=== PATIENT | male | born 1945 | race Caucasian/White ===

== ENCOUNTER 2017-09-23 07:40 | Emergency (ER) | payer OTHER ==
[~2017-09-23] VITALS: Ht 172.7 cm; Wt 89.4 kg
[~2017-09-23 07:40] MED LIST: ACETAMINOPHEN-1 EAC1 PO; AMOXICILLIN 50500 MG PO; ASPIR 8181 MG PO; ASPIRIN81 M2 PO; AZULFIDINE500 MG PO; BENTYL20 MG PO; CARVEDILOL3.125 MG PO; CEFDINIR300 MG PO; CIPRODEX OTIC7.5 ML OTIC; COREG3.125 MG PO; DULCOLAX5 MG PO; FERROUS SULFATE; FLEXERIL PO; FOLIC ACID1 MG PO; HUMIRA40 MG/0.1 INJECTION; HYDROCODONE-AP1 EAC6 PO; IBUPROFEN 800800 M1 PO; LISINOPRIL20 MG PO; LOPERAMIDE 2 MG2 M1 PO; MAG-AL PLUS XS30 ML PO; MESALAMINE4 GM/60 M2 RECTAL; MILK OF MA2400 MG/10 PO; MUPIROCIN22 GM TOP; NEO-POLYMYXIN-H10 ML OT; NYSTATIN-TRIAMC15 GM TOP; ONDANSETRON HCL4 M2 PO; PHENERGAN 25 MG25 MG PO; PREDNISONE 10 M10 MG PO; PREDNISONE50 MG PO; SULFASALAZINE500 M1 PO; SULFASALAZINE500 M4 PO; TRIAMCINOLONE A80 G2 TOP; TYLENOL325 MG PO
[2017-09-23 07:47] VITALS: BP 156/59
[2017-09-23] MEDS ORDERED: DIPHENHIST50 MG PO (07:50)
[2017-09-23] MEDS ORDERED: PREDNISONE 10 M10 MG PO (07:50)
[2017-09-23] MEDS ORDERED: AMOXICILLIN 50500 MG PO (07:54)
== END 2017-09-23 08:06 | disposition home or self-care (01) ==
LOC: M.ERS 07:40
DX: J02.9 Acute pharyngitis, unspecified (principal); I10 Essential (primary) hypertension; I67.1 Cerebral aneurysm, nonruptured; K64.9 Unspecified hemorrhoids

== ENCOUNTER 2017-11-03 10:22 | Observation (INO) | payer OTHER ==
[~2017-11-03] VITALS: Ht 175.3 cm; Wt 85.7 kg
[~2017-11-03 10:22] MED LIST changes: +DIPHENHIST50 MG PO
[2017-11-03 10:31] VITALS: BP 154/65
[2017-11-03] MEDS ORDERED: AZULFIDINE500 MG PO (10:35)
[2017-11-03 10:57] LABS: ABSOLUTE BASOPHILS 0.1 thou/uL (0.0-0.2); ABSOLUTE EOSINOPHILS 0.1 thou/uL (0.0-0.7); ABSOLUTE LYMPHOCYTES 0.9 thou/uL (0.8-5.3); ABSOLUTE MONOCYTES 0.7 thou/uL (0.0-1.2); BASOPHILS 1.2 %; EOSINOPHILS 1.5 %; HEMATOCRIT 29.4 % (42.0-52.0); HEMOGLOBIN 9.4 gm/dL (14.0-18.0); LYMPHOCYTES 19.4 %; MCH 22.2 pg (26.0-34.0); MCHC 32.1 g/dL (28.0-37.0); MCV 69.2 fL (80.0-100.0); MONOCYTES 15.2 %; MPV 7.7 fl. (7.2-11.1); NUCLEATED RBCS 0 /100WBC; PLATELET COUNT* 310 thou/uL (150-400); POLYS 62.7 %; RBC 4.24 mil/uL (4.50-6.00); WBC 4.8 thou/uL (4.0-11.0)
[2017-11-03 11:07] LABS: CALCIUM 8.5 mg/dL (8.5-10.1); CREATININE 1.2 mg/dL (0.6-1.3); POTASSIUM 3.4 mmol/L (3.5-5.1)
[2017-11-03 11:17] LABS: ALBUMIN 3.3 g/dL (3.4-5.0); DIRECT BILIRUBIN 0.1 mg/dL (<0.1-0.3); TOTAL BILIRUBIN 0.4 mg/dL (<0.1-1.0); TOTAL PROTEIN 7.3 g/dL (6.4-8.2)
[2017-11-03 11:20] LABS: MICROCYTES 2+
[2017-11-03 11:24] LABS: URINE BILIRUBIN NEGATIVE (Negative); URINE BLOOD NEGATIVE (Negative); URINE CLARITY CLEAR; URINE COLOR YELLOW; URINE GLUCOSE-RANDOM NEGATIVE (Negative); URINE KETONES NEGATIVE (Negative); URINE LEUKOCYTES NEGATIVE (Negative); URINE NITRITE NEGATIVE (Negative); URINE PROTEIN NEGATIVE (Negative); URINE SPECIFIC GRAVITY 1.015 (1.005-1.030); URINE UROBILINOGEN 0.2 E.U./dl (0.2-1.0)
[2017-11-03 13:55] VITALS: BP 148/65
[2017-11-03 14:09] VITALS: BP 130/85
[2017-11-03 16:00] VITALS: BP 139/64
[2017-11-03 23:53] VITALS: BP 131/55
[2017-11-04 05:18] LABS: HEMATOCRIT 28.8 % (42.0-52.0); HEMOGLOBIN 9.4 gm/dL (14.0-18.0); MCH 22.7 pg (26.0-34.0); MCHC 32.7 g/dL (28.0-37.0); MCV 69.4 fL (80.0-100.0); MPV 8.1 fl. (7.2-11.1); RBC 4.15 mil/uL (4.50-6.00); RDW-CV 17.5 % (10.5-14.5); WBC 4.8 thou/uL (4.0-11.0)
[2017-11-04 05:35] LABS: CALCIUM 8.3 mg/dL (8.5-10.1); TOTAL BILIRUBIN 0.4 mg/dL (<0.1-1.0); TOTAL PROTEIN 6.4 g/dL (6.4-8.2)
--- NOTE | 2017-11-04 15:20 | EKG ---
[place] [address] ELECTROCARDIOGRAM REPORT Name: CARLOTTA CAMERON Room: [address] ADM IN .R.#: [id number] Admission: 11/03/17 Attend Phys: Amna Miller MD Discharge: Date of : 49 Report #: [id number] THIS REPORT FOR: //name// [facility] Test Date: 2017-11-04 Test Time: 11:51:23 Pat Name: CARLOTTA CAMERON Department: Room: [address] Gender: M Visual Effects Artist: [facility] : 1945 Requested By: Alison Olmstead Order Number: [id number] Coni MD: Neftaly Esparza Measurements Intervals [place] Rate: 64 P: 56 ME: 171 QRS: 65 QRSD: 154 T: 13 QT: 467 QTc: 482 Interpretive Statements Sinus rhythm Right bundle branch block Compared to ECG 04/01/2017 17:41:56 Right bundle-branch block now present Electronically Signed On 11-04-2017 15:20:08 CDT by Neftaly Esparza [email or web address] <ELECTRONICALLY SIGNED> By: Neftaly Esparza MD, [facility] 11/04/17 1520 1151 1151 Neftaly Esparza MD, [facility] /EPI
[2017-11-04 16:49] VITALS: BP 133/58
[2017-11-04 20:30] VITALS: BP 143/77
[2017-11-05] VITALS (7 sets, daily range): BP systolic 125–144; BP diastolic 58–78
[2017-11-05 04:45] LABS: HEMATOCRIT 29.4 % (42.0-52.0); HEMOGLOBIN 9.3 gm/dL (14.0-18.0); MCH 22.1 pg (26.0-34.0); MCHC 31.7 g/dL (28.0-37.0); MCV 69.7 fL (80.0-100.0); MPV 8.5 fl. (7.2-11.1); RBC 4.21 mil/uL (4.50-6.00); RDW-CV 17.3 % (10.5-14.5); WBC 4.8 thou/uL (4.0-11.0)
[2017-11-05 05:20] LABS: ALBUMIN 3.1 g/dL (3.4-5.0); CALCIUM 8.6 mg/dL (8.5-10.1); CREATININE 1.1 mg/dL (0.6-1.3); POTASSIUM 4.5 mmol/L (3.5-5.1); TOTAL BILIRUBIN 0.3 mg/dL (<0.1-1.0); TOTAL PROTEIN 6.7 g/dL (6.4-8.2)
[2017-11-05] MEDS ORDERED: FERREX 150 PLU1 EAC1 PO (14:23)
[2017-11-05] MEDS ORDERED: CIPRO500 MG PO (14:23)
[2017-11-05] MEDS ORDERED: PREDNISONE 10 M10 MG PO (14:23)
[2017-11-05] MEDS ORDERED: FLAGYL500 MG PO (14:23)
[2017-11-06 08:30] VITALS: BP 124/46
[2017-11-06] MEDS ORDERED: SULFASALAZINE500 M4 PO (10:11)
[2017-11-06] MEDS ORDERED: ACIDOPHILUS1 EAC4 PO (10:11)
[2017-11-06] MEDS ORDERED: FERREX 150 PLU1 EAC1 PO (10:11)
[2017-11-06] MEDS ORDERED: PREDNISONE 10 M10 M1 PO (10:13)
[2017-11-06 11:00] VITALS: BP 133/58
[2017-11-06 11:33] VITALS: BP 133/58
[2017-11-06 12:14] VITALS: BP 133/58
--- NOTE | 2017-11-12 11:08 | CON ---
[address] [address] CONSULTATION Name: CARLOTTA CAMERON Room: [address] Rea Hicks#: [id number] Admission: 11/03/17 Attend Phys: Amna Miller MD Discharge: 11/06/17 Date of : 49 Report #: [id number] THIS REPORT FOR: //name// CC: Jass Miller MD DATE OF SERVICE: 11/04/2017 I have seen and examined the patient and agreed with plans been outlined by our nurse practitioner, Alison Olmstead. Due to the patient's complaints of persistent diarrhea with associated lower abdominal cramping and pain, we will proceed with full colonoscopy and terminal ileoscopy tomorrow. In addition, we will address if and when he can start treatment for his chronic hepatitis C infection. I have discussed this plan with the patient as well and he is agreeable to the same. <ELECTRONICALLY SIGNED> By: Jass Ly DO 11/12/17 1108 1653 [id number] Ly DO /nt
--- NOTE | 2017-11-12 11:08 | CON ---
[address] [address] CONSULTATION Name: CARLOTTA CAMERON Room: [address] Rea Hicks#: [id number] Admission: 11/03/17 Attend Phys: Amna Miller MD Discharge: 11/06/17 Date of : 49 Report #: [id number] THIS REPORT FOR: //name// CC: Jass Miller DICTATED BY: Alison Olmstead [facility] DATE OF SERVICE: 11/04/2017 Please note at the time of this dictation, the patient was seen and physically examined by myself. REASON FOR CONSULTATION: Increasing stooling. HISTORY OF PRESENT ILLNESS: This is a 72-year-old male who is well known to our practice who was last seen by myself in July 2017, to follow up regarding his UC and hepatitis C. At that time, the patient had been on Humira after starting his induction dose in October 2016, and he was doing his Humira every 2 weeks at that time. He was also on steroids 20 mg at that time and we started to taper because he was having 1 stool daily to every other day that was soft and formed with no evidence of any bright red blood or any melena. The patient underwent a colonoscopy back in October 2016 that showed moderate proctosigmoiditis, UC and a cecal polyp. Prior to that colon, he was also taking sulfasalazine 500 mg 4 tablets twice a day. The patient states that once he got off the steroids, then he started slowly noticing that he was having more increased gas or tenesmus with the urgency to go to the bathroom and when he would go to the bathroom, it would only be gas and no stool. He states that it has been going on probably since the October 04 or november, but he is not the best historian when it comes to the timeframe. However, he states in the last 2-3 weeks, he has had more increased episodes of this with one episode of being incontinent that he did not know if it was gas or stool and this one was stool and he did not make it to the bathroom. He states most of the time that was the only time that his stool just recently was very loose and watery, otherwise his bowel movements that he had this morning 30 minutes after eating was formed stool. He denies any abdominal cramping, any nausea, vomiting, fever or chills at this time. The patient is wondering if his Humira is working or not. His last Humira injection was on October 25, his next one is due on November 08. The patient also is undergoing hepatitis C treatment by myself. He was just approved for [employer] and he just received his medication at his home, but he is yet to start taking it yet. ALLERGIES: [place] [address] CONSULTATION Name: CARLOTTA CAMERON Room: [address] Rea Hicks#: [id number] Admission: 11/03/17 Attend Phys: Amna Miller MD Discharge: 11/06/17 Date of : 49 Report #: [id number] MEDICATIONS: From home include Humira, Benadryl, and sulfasalazine. PAST MEDICAL HISTORY: UC, proctosig, hypertension, hepatitis C, a history of a brain aneurysm. PAST SURGICAL HISTORY: Negative. FAMILY HISTORY: Noncontributory. SOCIAL HISTORY: He has been a smoker for 15+ years. No alcohol for many years. Past history of alcohol and illegal drug use. REVIEW OF SYSTEMS: Twelve-point review of systems is essentially negative except what is mentioned in the HPI. PHYSICAL EXAMINATION: VITAL SIGNS: Temperature 36.3, pulse 65, respirations 15, and blood pressure 131/55. HEART: Regular rate and rhythm. LUNGS: Clear. ABDOMEN: Soft, positive bowel sounds in all 4 quadrants with no masses or tenderness noted. LABS: Hemoglobin 9.4, hematocrit 28.8, white count is 4.8, platelets 274. Sodium 137, potassium 4, chloride 105, CO2 of 20, BUN is 10, creatinine 1, GFR 74, and glucose is 92. LFT is completely normal. Iron is 16, TIBC 384. Percentage sat is 4, ferritin is 10. CT of the abdomen and pelvis showed a sliding hiatal hernia and he has some thickening of the proximal sigmoid colon. IMPRESSION: 1. Tenesmus. 2. Gas. 3. Ulcerative colitis history, proctosig, last colon in October 2016. 4. Anemia. 5. Hepatitis C virus positive, we will be starting Harvoni treatment once he gets out of the hospital. PLAN: 1. Flex sig tomorrow with Dr. Ly. 2. We will start his prep. 3. Labs [place] [address] CONSULTATION Name: CARLOTTA CAMERON Room: [address] Kurt#: [id number] Admission: 11/03/17 Attend Phys: Amna Miller MD Discharge: 11/06/17 Date of : 49 Report #: [id number] Thank you for allowing us to participate in this patient's care. Please do not hesitate to call with any questions in regard to this consult. <ELECTRONICALLY SIGNED> By: Jass Ly DO 11/12/17 1108 1058 1937Jass Ly DO /nt
== END 2017-11-06 12:12 | disposition home or self-care (01) ==
LOC: M.ERS 10:22 → M.ORTHSURG 12:37 → M.TBA-ER 12:37 → M.ORTHSURG 12:51
PROVIDERS: Physician Assistant Surgical; ADMIT Internal Medicine
DX: K51.90 Ulcerative colitis, unspecified, without complications (principal); B19.20 Unspecified viral hepatitis C without hepatic coma; D64.9 Anemia, unspecified; I10 Essential (primary) hypertension; E87.6 Hypokalemia; R19.8 Other specified symptoms and signs involving the digestive system and abdomen; R14.3 Flatulence; R19.7 Diarrhea, unspecified; K26.9 Duodenal ulcer, unspecified as acute or chronic, without hemorrhage or perforation; K29.60 Other gastritis without bleeding; Z87.891 Personal history of nicotine dependence

== ENCOUNTER 2017-11-12 11:18 | Inpatient (IN) | payer OTHER ==
[~2017-11-12] VITALS: Ht 172.7 cm; Wt 85.8 kg
[~2017-11-12 11:18] MED LIST changes: +ACIDOPHILUS1 EAC4 PO; +CIPRO500 MG PO; +FERREX 150 PLU1 EAC1 PO; +FLAGYL500 MG PO; +PREDNISONE 10 M10 M1 PO
[2017-11-12 11:26] VITALS: BP 125/77
[2017-11-12] MEDS ORDERED: HARVONI 90-4001 EACH PO (11:28)
[2017-11-12 12:17] LABS: HEMATOCRIT 31.4 % (42.0-52.0); MCH 22.1 pg (26.0-34.0); MCHC 31.7 g/dL (28.0-37.0); MCV 69.8 fL (80.0-100.0); MPV 8.6 fl. (7.2-11.1); NUCLEATED RBCS 0 /100WBC; PLATELET COUNT* 305 thou/uL (150-400); RBC 4.51 mil/uL (4.50-6.00); WBC 10.1 thou/uL (4.0-11.0)
[2017-11-12 12:24] LABS: CALCIUM 8.7 mg/dL (8.5-10.1); CREATININE 1.2 mg/dL (0.6-1.3); PROTIME 9.8 Seconds (9.20-11.50)
[2017-11-12 12:31] LABS: ALBUMIN 3.3 g/dL (3.4-5.0); TOTAL BILIRUBIN 0.2 mg/dL (<0.1-1.0); TOTAL PROTEIN 7.4 g/dL (6.4-8.2); TROPONIN-I LEVEL 0.14 ng/mL (<0.06)
[2017-11-12 12:32] LABS: POTASSIUM 3.8 mmol/L (3.5-5.1)
[2017-11-12 12:45] LABS: ABSOLUTE LYMPHOCYTES 1.8 thou/uL (0.8-5.3); ABSOLUTE NEUTROPHILS 7.3 thou/uL (1.6-8.1); PLATELET ESTIMATE ADEQUATE
[2017-11-12 12:46] LABS: ANISOCYTOSIS 1+; HYPOCHROMASIA 2+; MICROCYTES 3+
[2017-11-12 12:47] LABS: MACROCYTES 1+
[2017-11-12 13:30] VITALS: BP 164/68
--- NOTE | 2017-11-12 13:30 | NUR ---
MRI [facility]ST[facility] FILLED OUT AND SENT WITH CHART TO UNIT. PATIENT TAKEN TO CT BY DAPHNE AND THEN TAKEN TO RM 208 BY SAMUEL JO. REPORT GIVEN TO SHARDA
[2017-11-12 14:08] VITALS: BP 139/66
--- NOTE | 2017-11-12 15:56 | EKG ---
[place] [address] ELECTROCARDIOGRAM REPORT Name: CARLOTTA CAMERON Room: [address] IN [facility]#: [id number] Admission: 11/12/17 Attend Phys: Mendel Ramos Discharge: Date of : 49 Report #: [id number] THIS REPORT FOR: //name// [facility] ED Test Date: 2017-11-12 Test Time: 12:14:43 Pat Name: CARLOTTA CAMERON Department: Room: Gender: Washer Blanket: Mat SANDERSON : 1945 Requested By: Eloy Lynn Order Number: [id number] MD: Timmy Jung Measurements Intervals [place] Rate: 69 P: 43 NC: 157 QRS: 67 QRSD: 150 T: 13 QT: 416 QTc: 446 Interpretive Statements Sinus rhythm Right bundle branch block Compared to ECG 11/04/2017 11:51:23 No significant changes Electronically Signed On 11-12-2017 15:55:48 CDT by Timmy Jung [email or web address] <ELECTRONICALLY SIGNED> By: Timmy Jung MD, [facility] 11/12/17 9966 1214 1214 Timmy Jung MD, [facility] /EPI
[2017-11-12 16:47] LABS: CHOLESTEROL 156 mg/dL (<200); HDL CHOLESTEROL 58 mg/dL (>40); LDL CHOLESTEROL 90 mg/dL (<100); TC:HDL 2.7 Ratio (Not establshd); TRIGLYCERIDE 42 mg/dL (<150); VLDL 8 mg/dL (<40)
[2017-11-12 16:48] LABS: SERUM ASSESSMENT CLEAR
--- NOTE | 2017-11-12 19:00 | NUR ---
REPORT RECEIVED FROM JOY IN ER. ASSUMED CARE OF PT AROUND 1408. PT A&O X4 BUT SEEMS TO REPEAT HIMSELF OFTEN AND IS NOT AWARE THAT HE IS ASKING REPEAT QUESTIONS. VSS. O2 SAT 96% ON RA. ANNUAL GIVING OFFICER PLACED TRACING SR WITH BBB. PT ORIENTED TO ROOM, BED AND CALL LIGHT. PT REPORTS NUMBNESS AND WEAKNESS IN RIGHT HAND AND ARM. FULL NIH COMPLETED, SCORE OF 4 ATTAINED FOR LIMB ATAXIA IN RIGHT ARM, DRIFT IN RIGHT ARM, AND DRIFT IN BOTH LEGS. BEDSIDE SWALLOW COMPLETED - PASSED. PT WENT DOWN FOR MRI WORK UP - RESULTS SHOW SEVERAL SMALL INFARCTS IN BILATERAL HEMISPHERES OF BRAIN, SEE RESULTS. RESULTS CALLED TO NEUROLOGY AND DR EDWARDS. ECHO ORDERED. ASPIRIN GIVEN IN ER AND ON THE EMAR FOR IN THE MORNING. PT HAVARTI MEDICATION SENT DOWN TO PHARMACY TO BE VERIFIED. PT REFUSED TO HAVE WALLET SENT TO SECURITY. PT EATING AND DRINKING WITHOUT ISSUE, PT DENIES PAIN OR DISCOMFORT. PT UP WITH STANDBY ASSIST TO THE BATHROOM, VOIDING WITHOUT ISSUE. PT CURRENTLY RESTING IN BED WATCHING TV. FALL PRECAUTIONS ARE IN PLACE. CALL LIGHT IS WITHIN REACH. HOURLY ROUNDING PERFORMED.
[2017-11-12 20:00] VITALS: BP 130/58
--- NOTE | 2017-11-12 23:03 | NUR ---
ACCOUNTING PROFESSOR ALARMED AT 2250 FOR 29 BEAT RUN V-TACH. PATIENT STABLE, ASYMPTOMATIC, VSS. PATIENT WAS SLEEPING DURING EPISODE, BUT UPON AWAKENING DENIES CHEST PAIN. CARDIOLOGY NOTIFIED, NO NEW ORDERS RECIEVED.
[2017-11-13] VITALS (15 sets, daily range): BP systolic 110–147; BP diastolic 45–90
--- NOTE | 2017-11-13 10:10 | NUR ---
ASSUMED CARE OF PT THIS AM AROUND 0715- VETERINARY POULTRY INSPECTOR IN PLACE ORDERED, TRACING SR THIS AM- UPON ASSESSMENT PT NOTED TO BE RESTING IN BED WATCHING TV- PT A&O X4, WITH FORGETFULLNESS- CONTINENT OF BOWEL AND BLADDER- SBA WITH TRANSFERS FOR SAFETY- LCTA, DIMINISHED IN BASES-RESP EVEN AND UN-LABORED- VSS, O2 SAT 96% ON RA- DENIES ANY SOA- ABDOMEN SOFT/ROUND/NON-TENDER, BS X4 QUADS- PT REPORTS BM THIS AM- IV NOTED TO LEFT AC INTACT AND SL- NIH IN PLACE PRESCIBED NOTED TO BE 1 THIS AM FOR SLIGHT DRIFT TO RUE-GOOD PO INTAKE NOTED THIS AM WITH BREAKFAST- CALL LIGHT AND PERSONAL BELONGINGS WITH IN REACH- HOURLY ROUNDS IN PLACE R/T SAFETY/NEEDS- ALL NEEDS MET AT THIS TIME-WCTM
--- NOTE | 2017-11-13 11:45 | NUR ---
Pt is A&O. Known to this CM from previous hospital stay. Resides at home alone. Independent with ADLs. No DME. No hx of HH or SNF. Supportive family and friends. Pt admitted wit stroke, asked Dr to place rehab consult and order PT/ST cog evals. Following.
--- NOTE | 2017-11-13 15:15 | 2DMMODE ---
[place] [address] 2 D/M-MODE ECHOCARDIOGRAM Name: CARLOTTA CAMERON Room: [address] IN [facility]#: [id number] Admission: 11/12/17 Attend Phys: uJlián Waggoner Discharge: Date of : 49 Date of Service: 11/13/17 1514 Report #: [id number] THIS REPORT FOR: //name// APPROVED REPORT Study performed: 11/13/2017 11:02:01 EXAM: Comprehensive 2D, Doppler, and color-flow Echocardiogram Patient Location: In-Patient Room #: [facility] Status: routine BSA: 2.04 HR: 61 bpm BP: 124/64 mmHg Rhythm: NSR Other Information Study Quality: Good Indications CVA/TIA Echo Enhancing Agent Indication: Rule out Shunt Agent(s) / Amount(s) Used: Agitated Saline 10 cc 2D Dimensions LVEF(%): 55.61 (>50%) IVSd: 17.64 (7-11mm) LVOT Diam: 21.65 (18-24mm) LVDd: 59.56 mm PWd: 12.42 (7-11mm) Ascending Ao: 39.25 (22-36mm) LVDs: 42.00 (25-40mm) Aortic Root: 39.82 mm Huddleston's LVEF: 55.61 % Volumes Left Atrial Volume (Systole) LA ESV Index: 24.80 mL/m2 Aortic Valve AoV Peak Darron.: 1.72 m/s AO Peak Gr.: 11.88 mmHg LVOT Max P.82 mmHg AO Mean Gr.: 6.04 mmHg LVOT Mean P.37 mmHg LVOT Max V: 1.57 m/s AO V2 VTI: 32.32 cm LVOT Mean V: 0.94 m/[place] [address] 2 D/M-MODE ECHOCARDIOGRAM Name: CARLOTTA CAMERON Room: [address] IN ..#: [id number] Admission: 11/12/17 Attend Phys: Julián Waggoner Discharge: Date of : 49 Date of Service: 11/13/17 1514 Report #: [id number] JADE (VTI): 3.20 cm2 LVOT V1 VTI: 28.11 cm AI Cass: 2.39 m/s2 AI PHT: 401.96 ms Mitral Valve E/A Ratio: 0.84 MV Decel. Time: 240.35 ms MV E Max Darron.: 0.47 m/s MV PHT: 69.70 ms MVA (PHT): 3.16 cm2 TDI E/Lateral E': 9.40 E/Medial E': 7.83 Medial E' Darron.: 0.06 m/s Lateral E' Darron.: 0.05 m/s Pulmonary Valve PV Peak Darron.: 0.71 m/s PV Peak Gr.: 1.99 mmHg Tricuspid Valve TR Peak Gr.: 20.45 mmHg RVSP: 25.00 mmHg Left Ventricle The left ventricle is normal size. There is normal LV segmental wall motion. Mild concentric left ventricular hypertrophy. Left ventricular systolic function is normal. The left ventricular ejection fraction is within the normal range. LVEF is 50-55%. Grade I - abnormal relaxation pattern. Right Ventricle The right ventricle is normal size. The right ventricular systolic function is normal. Atria The left atrium size is normal. Interatrial septum is intact without evidence of ASD or PFO. The right atrium size is normal. Aortic Valve Mild aortic valve sclerosis. Mild aortic regurgitation. There is no aortic valvular stenosis. Mitral Valve The mitral valve is normal in structure. Trace mitral regurgitation. No evidence of mitral valve stenosis. [place] [address] 2 D/M-MODE ECHOCARDIOGRAM Name: CARLOTTA CAMERON Room: [address] [place] .R.#: [id number] Admission: 11/12/17 Attend Phys: Julián Waggoner Discharge: Date of : 49 Date of Service: 11/13/17 1514 Report #: [id number] The tricuspid valve is normal in structure. Trace tricuspid regurgitation. The RVSP is ___25____ mmHg. Pulmonic Valve The pulmonary valve is normal in structure. There is no pulmonic valvular regurgitation. Great Vessels The aortic root is normal in size. IVC is normal in size and collapses with >50% inspiration Pericardium There is no pericardial effusion. <Conclusion> The left ventricle is normal size Mild concentric left ventricular hypertrophy. Left ventricular systolic function is normal. The left ventricular ejection fraction is within the normal range. LVEF is 50-55%. Grade I - abnormal relaxation pattern. The right ventricle is normal size. The left atrium size is normal. Mild aortic valve sclerosis. Mild aortic regurgitation. There is no aortic valvular stenosis. The mitral valve is normal in structure. Trace mitral regurgitation. The tricuspid valve is normal in structure. Trace tricuspid regurgitation. The RVSP is ___25____ mmHg. IVC is normal in size and collapses with >50% inspiration There is no pericardial effusion. There is normal LV segmental wall motion. <ELECTRONICALLY SIGNED> By: Mario Mallory MD, [facility] 11/13/17 1514 1514 1514 Mario Mallory MD, FACC /INF
--- NOTE | 2017-11-13 16:20 | NUR ---
RECEIVED CONSULT FOR POSSIBLE REHAB ADMISSION. CONSULT HAS BEEN ACKNOWLEDGED BY CLAM DREDGE BOAT CAPTAIN AND DR. MILES. Pt ADMITTED WITH MULTIPLE SMALL STROKES. Pt. WAS EVALUATED BY PT/OT WAS SBA/SUP WITH OT AND INDEPENDENT WITH PT AND DISCHARGED FROM SERVICES. Pt IS BACK TO BASELINE AND DOES NOT QUALIFY FOR ACUTE REHAB AT THIS TIME. PLEASE RE-CONSULT SHOULD MEDICAL OR PHYSICAL STATUS CHANGE. THANK YOU FOR THIS CONSULT.
--- NOTE | 2017-11-13 17:20 | TEE ---
[place] [address] TRANSESOPHAGEAL ECHOCARDIOGRAM Name: CARLOTTA CAMERON Room: [address] IN [facility]#: [id number] Admission: 11/12/17 Attend Phys: Julián Waggoner Discharge: Date of : 49 Date of Service: 11/13/17 1720 Report #: [id number] THIS REPORT FOR: //name// APPROVED REPORT Study performed: 11/13/2017 16:22:43 EXAM: Transesophageal Echocardiogram Patient Location: In-Patient Room #: 231 Status: routine BSA: 2.04 HR: 71 bpm BP: 145/79 mmHg Rhythm: NSR Other Information Study Quality: Good Indications CVA/TIA Echo Enhancing Agent Indication: Rule out Shunt Agent(s) / Amount(s) Used: Agitated Saline 10 cc Procedure After obtaining informed consent, patient underwent transesophageal echo in the [employer]. Type of Sedation : Conscious Sedation Sedation was administered by Lucinda Armstrong RN. Sedation start time: 1617 Case end Time: 1628 Sedation was achieved intravenously with: Versed (2) Fentanyl (50) Transesophageal probe was inserted and advanced into esophagus without difficulty by Timmy Jung MD, FACC. Echo enhancement indication: R/O Septal defect. Echo enhancement agent administered: Agitated Saline The TANNER was performed without complications. Throughout the procedure, the blood pressure, pulse oximetry, cardiac rhythm, and rate were monitored. The patient tolerated the procedure without adverse effects. Recovery from conscious sedation was uneventful and vital [place] [address] TRANSESOPHAGEAL ECHOCARDIOGRAM Name: CARLOTTA CAMERON Room: [address]#: [id number] Admission: 11/12/17 Attend Phys: Julián Waggoner Discharge: Date of : 49 Date of Service: 11/13/17 1720 Report #: [id number] Left Ventricle The left ventricle is normal size. There is normal LV segmental wall motion. There is normal left ventricular wall thickness. Left ventricular systolic function is normal. The left ventricular ejection fraction is within the normal range. No left ventricle thrombus noted on this study. LVEF is 50-55%. Right Ventricle The right ventricle is normal size. The right ventricular systolic function is normal. Atria No thrombus is visualized in the left atrium or appendage. Interatrial septum is intact without evidence of ASD or PFO. The right atrium size is normal. Aortic Valve Mild aortic valve sclerosis. Trace aortic regurgitation. There is no aortic valvular stenosis. Mitral Valve The mitral valve is normal in structure. Trace mitral regurgitation. No evidence of mitral valve stenosis. Tricuspid Valve The tricuspid valve is normal in structure. Trace tricuspid regurgitation. Pulmonic Valve Pulmonic valve is not well visualized. Great Vessels The aortic root is normal in size. Mild Atherosclerotic plaque is present in the aorta. Pericardium There is no pericardial effusion. <Conclusion> LVEF is 50-55%. There is normal LV segmental [place] [address] TRANSESOPHAGEAL ECHOCARDIOGRAM Name: CARLOTTA CAMERON Room: [address] IN [facility]#: [id number] Admission: 11/12/17 Attend Phys: Julián Waggoner Discharge: Date of : 49 Date of Service: 11/13/171719 Report #: [id number] No thrombus is visualized in the left atrium or appendage. No left ventricle thrombus noted on this study. <ELECTRONICALLY SIGNED> By: Timmy Jung MD, FACC 11/13/171719 19 19 Timmy Jung MD, FACC /INF
--- NOTE | 2017-11-13 17:32 | NUR ---
PT CURRENLTY RESTING IN BED- SUPERVISOR ADVERTISING DISPATCH CLERKS IN PLACE ORDERED, TRACING SR WITH BBB- IV TO LEFT AC ITNACT AND SL- TANNER COMPLETED THIS SHIFT ORDERED PT OFF UNIT NOTED TO RETURN AT 1700- VS 97.3 18 131/68 67 94% ON RA- PT DENIES ANY PAIN DISCOMFORT AT THIS TIME- PT REPORTED TO HANDLE PROCEDURE WELL, VSS- VSS IN PLACE PER PROTOCOL-PT REPORTED TO NOT HAVE ANY CLOTS, ASSUMED TO BE NON CARDIO RELATED- PT ABLE TO EAT 1720- ECHO COMPLETE THIS SHIFT WITH LVEF NOTED TO BE 50-55%- NIH IN PLACE AND REMAINS AT Q 1 R/T RUE WEAKNESS- CALL LIGHT AND PERSONAL BELONGINGS WITH IN REACH- ALL NEEDS MET AT THIS TIME-WCTM
[2017-11-14] VITALS: BP 105/52
[2017-11-14 04:27] VITALS: BP 115/56
--- NOTE | 2017-11-14 04:46 | NUR ---
PATIENT PROGRESSING TOWARDS GOALS: PATIENT STATES HE FEELS THOUGH HIS NUMBNESS IN RIGHT ARM IS IMPROVING. NIH REMAINS A "1" FOR SLIGHT DRIFT IN RIGHT LEG. PATIENT ABLE TO AMBULATE WITH NO ISSUES AND HAS BEEN AMBULATING IN HALLWAY INDEPENDENTLY THIS SHIFT. PATIENT EAGER TO DISCHARGE HOME TODAY. HOURLY ROUNDING OBSERVED. CALL LIGHT WITHIN REACH
[2017-11-14 08:00] VITALS: BP 141/71
[2017-11-14 13:16] VITALS: BP 151/86
[2017-11-14 15:01] VITALS: BP 151/86
[2017-11-14] MEDS ORDERED: LIPITOR 20 MG T20 M1 PO (15:09)
[2017-11-14] MEDS ORDERED: ASA5UEC PO (15:11)
--- NOTE | 2017-11-14 15:34 | NUR ---
HH ordered, Pt declined stating, "I don't think I need it, I get along just fine and do everything for myself." Updated nurse.
--- NOTE | 2017-11-14 16:14 | NUR ---
PT GIVEN DISCHARGE INSTRUCTIONS AT THIS TIME AND VERBALIZES UNDERSTANDING. PT GIVEN TWO SCRIPTS FOR ASA AND ATORVASTATIN. PT INSTRUCTED TO FOLLOW UP WITH GI, PCP, NEURO, AND CARDIOLOGY. PT AMBULATED TO PERSONAL VEHICLE WITH NURSING STAFF. PT DC'D WITH ALL BELONGINGS. NO OTHER CONCERNS VOICED.
[2017-11-14 17:11] LABS: GLYCOHEMOGLOBIN (HGB A1C) 5.2 % (4.8-5.6)
== END 2017-11-14 16:09 | disposition home or self-care (01) | DRG 65 ==
LOC: M.ERS 11:18 → M.TBA-ER 12:52 → M.2W 12:52
PROVIDERS: Emergency Medicine Emergency Medical Services; Psychiatry & Neurology Neurology; ADMIT Internal Medicine
PROC: B24BZZ4 Ultrasonography of Heart with Aorta, Transesophageal (ICD-10-PCS; principal; 2017-11-13)
DX: I63.9 Cerebral infarction, unspecified (principal); I47.1 Supraventricular tachycardia; D68.59 Other primary thrombophilia; E78.5 Hyperlipidemia, unspecified; Z60.2 Problems related to living alone; I10 Essential (primary) hypertension; Z86.19 Personal history of other infectious and parasitic diseases; Z82.49 Family history of ischemic heart disease and other diseases of the circulatory system; Z83.3 Family history of diabetes mellitus; Z87.891 Personal history of nicotine dependence; Z79.82 Long term (current) use of aspirin; Z79.899 Other long term (current) drug therapy

== ENCOUNTER → 2017-12-08 | Outpatient (CLI) | payer OTHER ==
[~2017-12-08] MED LIST changes: +ASA5UEC PO; +HARVONI 90-4001 EACH PO; +LIPITOR 20 MG T20 M1 PO; +NORCO 5-325 TA1 EACH PO; +TESSALON PERLE100 MG PO; +ULTRAM50 MG PO; +VENTOLIN HFA 1818 GM INH; +ZPAK PO
[2017-12-08 10:55] LABS: ABSOLUTE BASOPHILS 0.1 thou/uL (0.0-0.2); ABSOLUTE LYMPHOCYTES 1.6 thou/uL (0.8-5.3); ABSOLUTE MONOCYTES 0.6 thou/uL (0.0-1.2); ABSOLUTE NEUTROPHILS 4.3 thou/uL (1.6-8.1); BASOPHILS 2.1 %; EOSINOPHILS 0.3 %; HEMATOCRIT 37.2 % (42.0-52.0); HEMOGLOBIN 11.9 gm/dL (14.0-18.0); LYMPHOCYTES 24.2 %; MCH 24.2 pg (26.0-34.0); MCHC 31.9 g/dL (28.0-37.0); MCV 75.8 fL (80.0-100.0); MONOCYTES 9.4 %; NUCLEATED RBCS 0 /100WBC; PLATELET COUNT* 191 thou/uL (150-400); RBC 4.91 mil/uL (4.50-6.00); RDW-CV 26.7 % (10.5-14.5); WBC 6.8 thou/uL (4.0-11.0)
[2017-12-08 11:06] LABS: PROTIME 9.9 Seconds (9.20-11.50)
[2017-12-08 11:10] LABS: ALBUMIN 3.4 g/dL (3.4-5.0); CALCIUM 8.5 mg/dL (8.5-10.1); POTASSIUM 4.5 mmol/L (3.5-5.1); TOTAL BILIRUBIN 0.2 mg/dL (<0.1-1.0); TOTAL PROTEIN 7.1 g/dL (6.4-8.2)
[2017-12-08 11:28] LABS: PLATELET ESTIMATE ADEQUATE
[2017-12-08 11:29] LABS: ANISOCYTOSIS 2+; HYPOCHROMASIA 2+
[2017-12-10 13:12] LABS: HCV QUANT BY PCR HCV Not Detected IU/mL (())
== END ==
LOC: M.LAB 10:29
PROVIDERS: Internal Medicine Gastroenterology
DX: B19.20 Unspecified viral hepatitis C without hepatic coma (principal)

== ENCOUNTER 2018-01-19 09:43 | Emergency (ER) | payer OTHER ==
[~2018-01-19] VITALS: Ht 172.7 cm; Wt 89.4 kg
[~2018-01-19 09:43] MED LIST changes: -NORCO 5-325 TA1 EACH PO; -TESSALON PERLE100 MG PO; -ULTRAM50 MG PO; -VENTOLIN HFA 1818 GM INH; -ZPAK PO
[2018-01-19] MEDS ORDERED: NORCO 5-325 TA1 EACH PO (10:19)
[2018-01-19 10:28] VITALS: BP 134/77
== END 2018-01-19 10:29 | disposition home or self-care (01) ==
LOC: M.ERS 09:43
DX: S86.812A Strain of other muscle(s) and tendon(s) at lower leg level, left leg, initial encounter (principal); I10 Essential (primary) hypertension; Z86.19 Personal history of other infectious and parasitic diseases; X50.1XXA Overexertion from prolonged static or awkward postures, initial encounter; Y93.89 Activity, other specified; Y92.89 Other specified places as the place of occurrence of the external cause; Y99.8 Other external cause status

== ENCOUNTER 2018-01-25 16:25 | Emergency (ER) | payer OTHER ==
[~2018-01-25] VITALS: Ht 172.7 cm; Wt 89.8 kg
[~2018-01-25 16:25] MED LIST changes: +NORCO 5-325 TA1 EACH PO
[2018-01-25] MEDS ORDERED: ULTRAM50 MG PO (17:28)
[2018-01-25 17:37] VITALS: BP 178/75
== END 2018-01-25 17:37 | disposition home or self-care (01) ==
LOC: M.ERS 16:25
DX: M13.861 Other specified arthritis, right knee (principal); I10 Essential (primary) hypertension; Z86.19 Personal history of other infectious and parasitic diseases

== ENCOUNTER 2018-04-04 11:41 | Emergency (ER) | payer OTHER ==
[~2018-04-04] VITALS: Ht 175.3 cm; Wt 99.1 kg
[~2018-04-04 11:41] MED LIST changes: +ULTRAM50 MG PO
[2018-04-04 12:15] LABS: ABSOLUTE BASOPHILS 0.1 thou/uL (0.0-0.2); ABSOLUTE EOSINOPHILS 0.3 thou/uL (0.0-0.7); ABSOLUTE MONOCYTES 0.7 thou/uL (0.0-1.2); ABSOLUTE NEUTROPHILS 1.5 thou/uL (1.6-8.1); BASOPHILS 1.5 %; EOSINOPHILS 9.3 %; HEMATOCRIT 37.5 % (42.0-52.0); HEMOGLOBIN 12.3 gm/dL (14.0-18.0); LYMPHOCYTES 28.4 %; MCH 28.2 pg (26.0-34.0); MCHC 32.7 g/dL (28.0-37.0); MCV 86.3 fL (80.0-100.0); MONOCYTES 18.5 %; MPV 9.7 fl. (7.2-11.1); NUCLEATED RBCS 0 /100WBC; PLATELET COUNT* 199 thou/uL (150-400); POLYS 42.3 %; RBC 4.35 mil/uL (4.50-6.00); RDW-CV 13.7 % (10.5-14.5); WBC 3.6 thou/uL (4.0-11.0)
[2018-04-04 12:30] LABS: ANION GAP 8 mmol/L (7-16); BUN 22 mg/dL (7-18); CALCIUM 8.8 mg/dL (8.5-10.1); CHLORIDE 105 mmol/L (98-107); CO2 24 mmol/L (21-32); CREATININE 1.1 mg/dL (0.6-1.3); GLUCOSE 101 mg/dL (70-99); POTASSIUM 3.8 mmol/L (3.5-5.1); SODIUM 137 mmol/L (136-145)
[2018-04-04 12:35] LABS: ALBUMIN 3.6 g/dL (3.4-5.0); ALKALINE PHOSPHATASE 86 U/L (46-116); SGOT 19 U/L (15-37); SGPT 20 U/L (30-65); TOTAL BILIRUBIN 0.3 mg/dL (<0.1-1.0); TOTAL PROTEIN 7.3 g/dL (6.4-8.2); TROPONIN-I LEVEL <0.06 ng/mL (<0.06)
[2018-04-04 12:57] LABS: URINE BILIRUBIN NEGATIVE (Negative); URINE BLOOD NEGATIVE (Negative); URINE CLARITY CLEAR; URINE COLOR YELLOW; URINE GLUCOSE-RANDOM NEGATIVE (Negative); URINE KETONES NEGATIVE (Negative); URINE LEUKOCYTES-REFLEX NEGATIVE (Negative); URINE NITRITE-REFLEX NEGATIVE (Negative); URINE PROTEIN NEGATIVE (Negative); URINE UROBILINOGEN 0.2 E.U./dl (0.2-1.0)
[2018-04-04] MEDS ORDERED: ZPAK PO (13:30)
[2018-04-04 13:34] VITALS: BP 148/75
--- NOTE | 2018-04-05 16:07 | EKG ---
[place] [address] ELECTROCARDIOGRAM REPORT Name: CARLOTTA CAMERON [id number] Admission: 04/04/18 Attend Phys: Discharge: 04/04/18 Date of : 49 Report #: [id number] THIS REPORT FOR: //name// [facility] ED Test Date: 2018-04-04 Test Time: 11:51:12 Pat Name: CARLOTTA CAMERON Department: Room: Gender: M Porcelain Enameler: : 1945 Requested By: Eloy Lynn Order Number: [id number] MD: Mario Mallory Measurements Intervals [place] Rate: 73 P: 64 SD: 173 QRS: 75 QRSD: 152 T: -21 QT: 403 QTc: 444 Interpretive Statements Sinus rhythm Multiple ventricular premature complexes Right bundle branch block Compared to ECG 11/12/2017 12:14:43 Ventricular premature complex(es) now present Electronically Signed On 04-05-2018 16:07:13 CDT by Mario Mallory [email or web address] <ELECTRONICALLY SIGNED> By: Mario Mallory MD, [facility] 04/05/18 1607 1151 1151 Mario Mallory MD, FACC /EPI
== END 2018-04-04 13:34 | disposition home or self-care (01) ==
LOC: M.ERS 11:41
PROVIDERS: Emergency Medicine Emergency Medical Services
DX: R09.1 Pleurisy (principal); J40 Bronchitis, not specified as acute or chronic; I10 Essential (primary) hypertension

== ENCOUNTER 2018-05-16 08:18 | Emergency (ER) | payer OTHER ==
[~2018-05-16] VITALS: Ht 172.7 cm; Wt 89.8 kg
[~2018-05-16 08:18] MED LIST changes: +ZPAK PO
[2018-05-16 09:20] LABS: ABSOLUTE BASOPHILS 0.1 thou/uL (0.0-0.2); ABSOLUTE EOSINOPHILS 0.3 thou/uL (0.0-0.7); ABSOLUTE LYMPHOCYTES 1.2 thou/uL (0.8-5.3); ABSOLUTE MONOCYTES 0.9 thou/uL (0.0-1.2); ABSOLUTE NEUTROPHILS 2.3 thou/uL (1.6-8.1); BASOPHILS 2.8 %; EOSINOPHILS 6.2 %; HEMATOCRIT 36.9 % (42.0-52.0); HEMOGLOBIN 11.9 gm/dL (14.0-18.0); LYMPHOCYTES 24.7 %; MCH 26.3 pg (26.0-34.0); MCHC 32.2 g/dL (28.0-37.0); MCV 81.7 fL (80.0-100.0); MONOCYTES 18.4 %; MPV 9.8 fl. (7.2-11.1); NUCLEATED RBCS 0 /100WBC; PLATELET COUNT* 234 thou/uL (150-400); POLYS 47.9 %; RBC 4.51 mil/uL (4.50-6.00); RDW-CV 15.4 % (10.5-14.5); WBC 4.8 thou/uL (4.0-11.0)
[2018-05-16 09:37] LABS: ANION GAP 8 mmol/L (7-16); BUN 26 mg/dL (7-18); CALCIUM 8.9 mg/dL (8.5-10.1); CHLORIDE 105 mmol/L (98-107); CO2 24 mmol/L (21-32); GLUCOSE 111 mg/dL (70-99); POTASSIUM 4.1 mmol/L (3.5-5.1); SODIUM 137 mmol/L (136-145)
[2018-05-16 09:39] LABS: ALBUMIN 3.6 g/dL (3.4-5.0); ALKALINE PHOSPHATASE 99 U/L (46-116); NT-PRO BRAIN NAT PEPTIDE 1052 pg/mL (<300); SGOT 22 U/L (15-37); SGPT 21 U/L (30-65); TOTAL BILIRUBIN 0.3 mg/dL (<0.1-1.0); TOTAL PROTEIN 7.2 g/dL (6.4-8.2); TROPONIN-I LEVEL <0.06 ng/mL (<0.06)
[2018-05-16] MEDS ORDERED: TESSALON PERLE100 MG PO (11:21)
[2018-05-16] MEDS ORDERED: VENTOLIN HFA 1818 GM INH (11:25)
[2018-05-16 11:30] VITALS: BP 147/76
--- NOTE | 2018-05-18 11:09 | EKG ---
[place] [address] ELECTROCARDIOGRAM REPORT Name: CARLOTTA CAMERON [id number] Admission: 05/16/18 Attend Phys: Discharge: 05/16/18 Date of : 49 Report #: [id number] THIS REPORT FOR: //name// [facility] ED Test Date: 2018-05-16 Test Time: 09:04:22 Pat Name: CARLOTTA CAMERON Department: Room: Gender: M Network Operations Center Engineer: Mat LOVING : 1945 Requested By: Eloy Lynn Order Number: [id number] MD: Timmy Jung Measurements Intervals [place] Rate: 64 P: 50 [place]: 194 QRS: 70 QRSD: 153 T: -4 QT: 431 QTc: 445 Interpretive Statements Sinus rhythm Right bundle branch block Compared to ECG 04/04/2018 11:51:12 Ventricular premature complex(es) no longer present Electronically Signed On 05-18-2018 11:09:35 SHEETFED PRESS OPERATOR by Timmy Jung [email or web address] <ELECTRONICALLY SIGNED> By: Timmy Jung MD, [facility] 05/18/18 1109 0904 0904 Timmy Jung MD, [facility] /EPI
== END 2018-05-16 11:30 | disposition home or self-care (01) ==
LOC: M.ERS 08:18
PROVIDERS: Emergency Medicine Emergency Medical Services
DX: J40 Bronchitis, not specified as acute or chronic (principal); I10 Essential (primary) hypertension; Z86.19 Personal history of other infectious and parasitic diseases

== ENCOUNTER 2018-06-20 15:09 | Emergency (ER) | payer OTHER ==
[~2018-06-20] VITALS: Ht 172.7 cm; Wt 98.4 kg
[~2018-06-20 15:09] MED LIST changes: +TESSALON PERLE100 MG PO; +VENTOLIN HFA 1818 GM INH
[2018-06-20 15:41] LABS: HEMATOCRIT 38.8 % (42.0-52.0); HEMOGLOBIN 12.5 gm/dL (14.0-18.0); MCH 26.6 pg (26.0-34.0); MCHC 32.3 g/dL (28.0-37.0); MCV 82.4 fL (80.0-100.0); MPV 9.5 fl. (7.2-11.1); NUCLEATED RBCS 0 /100WBC; PLATELET COUNT* 218 thou/uL (150-400); RBC 4.71 mil/uL (4.50-6.00); RDW-CV 18.2 % (10.5-14.5); WBC 5.6 thou/uL (4.0-11.0)
[2018-06-20 15:44] LABS: URINE BILIRUBIN NEGATIVE (Negative); URINE BLOOD NEGATIVE (Negative); URINE CLARITY CLEAR; URINE COLOR YELLOW; URINE GLUCOSE-RANDOM NEGATIVE (Negative); URINE KETONES NEGATIVE (Negative); URINE LEUKOCYTES-REFLEX NEGATIVE (Negative); URINE NITRITE-REFLEX NEGATIVE (Negative); URINE PROTEIN NEGATIVE (Negative); URINE UROBILINOGEN 0.2 E.U./dl (0.2-1.0)
[2018-06-20 15:48] LABS: ANION GAP 11 mmol/L (7-16); APTT 32.1 Seconds (25.0-31.3); BUN 20 mg/dL (7-18); CALCIUM 9.2 mg/dL (8.5-10.1); CHLORIDE 103 mmol/L (98-107); CO2 23 mmol/L (21-32); CREATININE 1.1 mg/dL (0.6-1.3); GLUCOSE 98 mg/dL (70-99); INR 1.1; POTASSIUM 4.3 mmol/L (3.5-5.1); PROTIME 10.8 Seconds (9.20-11.50); SODIUM 137 mmol/L (136-145)
[2018-06-20 15:54] LABS: ABSOLUTE EOSINOPHILS 0.1 thou/uL (0.0-0.7); ABSOLUTE MONOCYTES 1.1 thou/uL (0.0-1.2); ABSOLUTE NEUTROPHILS 2.5 thou/uL (1.6-8.1)
[2018-06-20 15:55] LABS: ATYPICAL LYMPHS 21 %; PLATELET ESTIMATE ADEQUATE
[2018-06-20 15:58] LABS: ALBUMIN 3.7 g/dL (3.4-5.0); ALKALINE PHOSPHATASE 95 U/L (46-116); NT-PRO BRAIN NAT PEPTIDE 1411 pg/mL (<300); SGOT 18 U/L (15-37); SGPT 21 U/L (30-65); TOTAL BILIRUBIN 0.4 mg/dL (<0.1-1.0); TOTAL PROTEIN 7.7 g/dL (6.4-8.2); TROPONIN-I LEVEL <0.06 ng/mL (<0.06)
[2018-06-20] MEDS ORDERED: VENTOLIN HFA 1818 GM INH (17:00)
[2018-06-20 17:17] VITALS: BP 146/74
--- NOTE | 2018-06-21 11:09 | EKG ---
[place] [address] ELECTROCARDIOGRAM REPORT Name: CARLOTTA CAMERON [id number] Admission: 06/20/18 Attend Phys: Discharge: 06/20/18 Date of : 49 Report #: [id number] THIS REPORT FOR: //name// [facility] ED Test Date: 2018-06-20 Test Time: 15:23:19 Pat Name: CARLOTTA CAMERON Department: Room: Gender: M Calculating Machine Mechanic: Mat LOVING : 1945 Requested By: Herrera Burr Order Number: [id number] MD: Timmy Jung Measurements Intervals [place] Rate: 94 P: 64 IA: 150 QRS: 173 QRSD: 154 T: -16 QT: 433 QTc: 542 Interpretive Statements Sinus rhythm Ventricular bigeminy Nonspecific intraventricular conduction delay Compared to ECG 05/16/2018 09:04:22 Ventricular premature complex(es) now present Intraventricular conduction delay now present Right bundle-branch block no longer present Electronically Signed On 06-21-2018 11:09:03 [employer] by Timmy Jung [email or web address] <ELECTRONICALLY SIGNED> By: Timmy Jung MD, FACC 06/21/18 1109 1523 1523 Timmy Jung MD, FAC /EPI
== END 2018-06-20 17:17 | disposition home or self-care (01) ==
LOC: M.ERS 15:09
PROVIDERS: Family Medicine
DX: R53.1 Weakness (principal); I10 Essential (primary) hypertension; I67.1 Cerebral aneurysm, nonruptured; Z86.19 Personal history of other infectious and parasitic diseases

== ENCOUNTER 2018-07-01 10:22 | Inpatient (IN) | payer OTHER ==
[~2018-07-01] VITALS: Ht 172.7 cm; Wt 90.3 kg
--- NOTE | ~2018-07-01 | CON ---
[address] [address] CONSULTATION Name: CARLOTTA CAMERON Room: [address] IN M.R.#: [id number] Admission: 07/01/18 Attend Phys: Yong Merino MD Discharge: 07/02/18 Date of : 49 Report #: [id number] THIS REPORT FOR: //name// CC: Dale Merino MD DATE OF SERVICE: 07/02/2018 ATTENDING PHYSICIAN: Yong Merino MD. LOCATION: I think his room number was 206. INDICATION FOR CONSULTATION: COPD. HISTORY OF PRESENT ILLNESS: The patient is a 72-year-old male, remote smoker with COPD and bronchospasm. The patient has been short of breath for 2-3 days, states it was worse over the last several days. He has chronic lung changes on his chest x-ray, used to be a heavy smoker, but quit 14 years ago. Denies any fever, chills, sweats or purulent sputum. No esophageal reflux or sinus drainage noted. 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 Appears he may be hypercoagulable at some point in time. Also, some mild hypertension. ALLERGIES: He has no known medical allergies. OUTPATIENT MEDICATIONS: Included atorvastatin, Lipitor 20 mg daily, aspirin 325 mg daily, and albuterol inhaler 2 puffs p.r.n. Was also supposed to be on lisinopril 5 mg daily, sulfasalazine (Azulfidine) 500 mg 4 times a day and then carvedilol 5 mg daily. FAMILY HISTORY: Positive for coronary artery disease in his brother. SOCIAL HISTORY: The patient lives on his own at home. He is a prior smoker. He quit he said several years ago and he has about a 30- to 40-pack year history of smoking. Denies any alcohol or illicit drug use. REVIEW OF SYSTEMS: A 14-point review of systems reviewed and negative except for pertinent positives noted in HPI. PHYSICAL EXAMINATION: VITAL SIGNS: Stable. Blood pressure was 150/77, heart rate 76, respirations were 18, temperature is 97.6 degrees and room air sats 94%. [place] [address] CONSULTATION Name: CARLOTTA CAMERON BRENT Room: [address]#: [id number] Admission: 07/01/18 Attend Phys: Yong Merino MD Discharge: 07/02/18 Date of : 49 Report #: [id number] HEENT: Unremarkable. NECK: Supple, without nodes. CHEST: Shows diminished breath sounds with bilateral expiratory wheeze. CARDIOVASCULAR: Regular rate and rhythm without murmur, gallop or rub. Heart rate is 76. ABDOMEN: Soft, without masses or megaly. EXTREMITIES: No calf tenderness. No cyanosis, clubbing or edema. SKIN: Dry and intact. PSYCHIATRIC: Normal. NEUROLOGIC: Nonfocal, moves all fours. Chest x-ray basically within normal limits. Labs otherwise unremarkable. Other labs, hemoglobin was 11, white count is 3900, platelets are 225,000. Sodium is 137, potassium is 4.7, carbon dioxide is 23, BUN is 21, creatinine is 1.1, glucose is 121. LFTs within normal limits. NT-proBNP mildly elevated 964. TSH is normal at 4.2. IMPRESSION: 1. Acute bronchospasm. 2. Probably underlying chronic obstructive pulmonary disease. PLAN: Appears the patient is going home soon on a prednisone taper and p.o. Levaquin. He may need albuterol nebulizers at home and/or an albuterol inhaler. Montelukast 10 mg daily maybe worthwhile and we will try and see him in the office and see how he is doing. After that time, may need full PFTs at some point in time. Thanks again for allowing us to participate in this man's care. By: 1533 [id number] Cody MD /asuncion
[2018-07-01 10:26] VITALS: BP 177/70
[2018-07-01] MEDS ORDERED: CARVEDILOL ER10 MG PO (10:30)
[2018-07-01] MEDS ORDERED: LISINOPRIL5 MG PO (10:30)
[2018-07-01] MEDS ORDERED: AZULFIDINE500 MG PO (10:31)
[2018-07-01 11:00] LABS: ABSOLUTE BASOPHILS 0.1 thou/uL (0.0-0.2); ABSOLUTE EOSINOPHILS 0.1 thou/uL (0.0-0.7); ABSOLUTE LYMPHOCYTES 0.9 thou/uL (0.8-5.3); ABSOLUTE MONOCYTES 0.5 thou/uL (0.0-1.2); ABSOLUTE NEUTROPHILS 1.7 thou/uL (1.6-8.1); BASOPHILS 2.3 %; HEMATOCRIT 34.2 % (42.0-52.0); HEMOGLOBIN 11.2 gm/dL (14.0-18.0); LYMPHOCYTES 26.9 %; MCH 26.8 pg (26.0-34.0); MCHC 32.8 g/dL (28.0-37.0); MCV 81.5 fL (80.0-100.0); MONOCYTES 15.8 %; MPV 9.2 fl. (7.2-11.1); NUCLEATED RBCS 0 /100WBC; PLATELET COUNT* 215 thou/uL (150-400); RBC 4.19 mil/uL (4.50-6.00); RDW-CV 17.3 % (10.5-14.5); WBC 3.4 thou/uL (4.0-11.0)
[2018-07-01 11:10] LABS: CALCIUM 8.6 mg/dL (8.5-10.1); CREATININE 1.1 mg/dL (0.6-1.3); POTASSIUM 3.9 mmol/L (3.5-5.1)
[2018-07-01 11:15] LABS: ALBUMIN 3.6 g/dL (3.4-5.0); TOTAL BILIRUBIN 0.4 mg/dL (<0.1-1.0); TOTAL PROTEIN 7.2 g/dL (6.4-8.2)
--- NOTE | 2018-07-01 15:10 | EKG ---
[place] [address] ELECTROCARDIOGRAM REPORT Name: CARLOTTA CAMERON Room: [place] [address] ADM IN [facility]#: [id number] Admission: 07/01/18 Attend Phys: Yong Merino MD Discharge: Date of : 49 Report #: [id number] THIS REPORT FOR: //name// [facility] ED Test Date: 2018-07-01 Test Time: 11:10:40 Pat Name: CARLOTTA CAMERON Department: Room: [facility] Gender: Rotary Cutter Feeder: Mat LOVING : 1945 Requested By: Chery Schroeder Order Number: [id number] MD: Neftaly Esparza Measurements Intervals [place] Rate: 69 P: 66 [place]: 162 QRS: 86 QRSD: 159 T: -21 QT: 429 QTc: 460 Interpretive Statements Sinus rhythm Multiple ventricular premature complexes Right bundle branch block Compared to ECG 06/20/2018 15:23:19 no change Electronically Signed On 07-01-2018 15:09:53 VIDEO RECORDER MECHANIC by Neftaly Esparza [email or web address] <ELECTRONICALLY SIGNED> By: Neftaly Esparza MD, [facility] 07/01/18 1509 1110 1110 Neftaly Esparza MD, [facility] /EPI
[2018-07-01 15:57] VITALS: BP 160/84
[2018-07-01 17:22] VITALS: BP 138/51
[2018-07-01 20:30] VITALS: BP 110/52
[2018-07-02] VITALS: BP 133/71
[2018-07-02 04:00] VITALS: BP 138/66
[2018-07-02 05:19] LABS: ABSOLUTE LYMPHOCYTES 0.7 thou/uL (0.8-5.3); ABSOLUTE MONOCYTES 0.3 thou/uL (0.0-1.2); ABSOLUTE NEUTROPHILS 2.8 thou/uL (1.6-8.1); BASOPHILS 0.5 %; HEMOGLOBIN 11.4 gm/dL (14.0-18.0); LYMPHOCYTES 18.4 %; MCH 26.7 pg (26.0-34.0); MCHC 32.6 g/dL (28.0-37.0); MCV 81.8 fL (80.0-100.0); MONOCYTES 8.7 %; MPV 9.6 fl. (7.2-11.1); NUCLEATED RBCS 0 /100WBC; PLATELET COUNT* 225 thou/uL (150-400); POLYS 72.4 %; RBC 4.28 mil/uL (4.50-6.00); WBC 3.9 thou/uL (4.0-11.0)
[2018-07-02 05:52] LABS: CALCIUM 8.7 mg/dL (8.5-10.1); CREATININE 1.1 mg/dL (0.6-1.3); POTASSIUM 4.7 mmol/L (3.5-5.1)
[2018-07-02 08:00] VITALS: BP 146/78
[2018-07-02 12:00] VITALS: BP 121/70
[2018-07-02] MEDS ORDERED: ADVAIR HFA 230M12 GM INH (13:14)
[2018-07-02] MEDS ORDERED: LEVAQUIN 750 M750 MG PO (13:14)
[2018-07-02] MEDS ORDERED: COREG6.25 MG PO (13:15)
[2018-07-02] MEDS ORDERED: PREDNISONE 20 M20 MG PO (13:15)
[2018-07-02 13:36] VITALS: BP 121/70
== END 2018-07-02 14:13 | disposition home or self-care (01) | DRG 191 ==
LOC: M.ERS 10:22 → M.2W 12:36 → M.TBA-ER 12:36 → M.2W 16:12
PROVIDERS: Nurse Practitioner Family; ADMIT Family Medicine
DX: J44.1 Chronic obstructive pulmonary disease with (acute) exacerbation (principal); R65.10 Systemic inflammatory response syndrome (SIRS) of non-infectious origin without acute organ dysfunction; N18.2 Chronic kidney disease, stage 2 (mild); I12.9 Hypertensive chronic kidney disease with stage 1 through stage 4 chronic kidney disease, or unspecified chronic kidney disease; Z86.73 Personal history of transient ischemic attack (TIA), and cerebral infarction without residual deficits; Z86.19 Personal history of other infectious and parasitic diseases; Z82.49 Family history of ischemic heart disease and other diseases of the circulatory system; Z83.3 Family history of diabetes mellitus; Z87.891 Personal history of nicotine dependence

== ENCOUNTER 2018-09-09 18:14 | Emergency (ER) | payer OTHER ==
[~2018-09-09] VITALS: Ht 172.7 cm; Wt 86.2 kg
[~2018-09-09 18:14] MED LIST changes: +ADVAIR HFA 230M12 GM INH; +CARVEDILOL ER10 MG PO; +COREG6.25 MG PO; +LEVAQUIN 750 M750 MG PO; +LISINOPRIL5 MG PO; +PREDNISONE 20 M20 MG PO
[2018-09-09 18:37] LABS: URINE BILIRUBIN NEGATIVE (Negative); URINE BLOOD NEGATIVE (Negative); URINE CLARITY CLEAR; URINE COLOR YELLOW; URINE GLUCOSE-RANDOM NEGATIVE (Negative); URINE KETONES NEGATIVE (Negative); URINE LEUKOCYTES-REFLEX NEGATIVE (Negative); URINE NITRITE-REFLEX NEGATIVE (Negative); URINE PROTEIN NEGATIVE (Negative); URINE SPECIFIC GRAVITY 1.015 (1.005-1.030); URINE UROBILINOGEN 0.2 E.U./dl (0.2-1.0)
[2018-09-09 19:00] LABS: ABSOLUTE BASOPHILS 0.1 thou/uL (0.0-0.2); ABSOLUTE EOSINOPHILS 0.2 thou/uL (0.0-0.7); ABSOLUTE MONOCYTES 0.7 thou/uL (0.0-1.2); ABSOLUTE NEUTROPHILS 2.9 thou/uL (1.6-8.1); BASOPHILS 1.3 %; EOSINOPHILS 3.2 %; HEMATOCRIT 36.3 % (42.0-52.0); LYMPHOCYTES 21.5 %; MCH 28.2 pg (26.0-34.0); MCHC 33.2 g/dL (28.0-37.0); MCV 84.9 fL (80.0-100.0); MONOCYTES 14.4 %; MPV 8.4 fl. (7.2-11.1); NUCLEATED RBCS 0 /100WBC; PLATELET COUNT* 206 thou/uL (150-400); POLYS 59.6 %; RBC 4.27 mil/uL (4.50-6.00); RDW-CV 17.2 % (10.5-14.5); WBC 4.9 thou/uL (4.0-11.0)
[2018-09-09 19:16] LABS: ANION GAP 7 mmol/L (7-16); BUN 19 mg/dL (7-18); CALCIUM 9.5 mg/dL (8.5-10.1); CHLORIDE 100 mmol/L (98-107); CO2 28 mmol/L (21-32); CREATININE 1.3 mg/dL (0.6-1.3); GLUCOSE 83 mg/dL (70-99); POTASSIUM 3.8 mmol/L (3.5-5.1); SODIUM 135 mmol/L (136-145); TROPONIN-I LEVEL <0.06 ng/mL (<0.06)
[2018-09-09 19:20] LABS: ALBUMIN 3.9 g/dL (3.4-5.0); ALKALINE PHOSPHATASE 80 U/L (46-116); LIPASE 130 U/L (73-393); SGOT 23 U/L (15-37); SGPT 26 U/L (30-65); TOTAL BILIRUBIN 0.4 mg/dL (<0.1-1.0); TOTAL PROTEIN 7.5 g/dL (6.4-8.2)
[2018-09-09] MEDS ORDERED: NORCO 5-325 TA1 EACH PO (20:27)
[2018-09-09] MEDS ORDERED: FLAGYL500 M1 PO (20:27)
[2018-09-09] MEDS ORDERED: MEDROLDOSEPACK PO (20:27)
[2018-09-09] MEDS ORDERED: CIPRO500 MG PO (20:27)
[2018-09-09 20:51] VITALS: BP 150/63
--- NOTE | 2018-09-12 14:52 | EKG ---
[place] [address] ELECTROCARDIOGRAM REPORT Name: CARLOTTA CAMERON [id number] Admission: 09/09/18 Attend Phys: Discharge: 09/09/18 Date of : 49 Report #: [id number] THIS REPORT FOR: //name// [facility] ED Test Date: 2018-09-09 Test Time: 18:56:48 Pat Name: CARLOTTA CAMERON Department: Room: Gender: M Beater Room Helper: NOAM : 1945 Requested By: Renetta Leiva Order Number: [id number] MD: Kwan Denise Measurements Intervals [place] Rate: 65 P: 49 [place]: 186 QRS: 72 QRSD: 159 T: 3 QT: 437 QTc: 455 Interpretive Statements Sinus rhythm Right bundle branch block Baseline wander in lead(s) V6 Compared to ECG 07/01/2018 11:10:40 Ventricular premature complex(es) no longer present Electronically Signed On 09-12-2018 14:52:31 CDT by Kwan Denise [email or web address] <ELECTRONICALLY SIGNED> By: Kwan Denise MD, [facility] 09/12/18 1452 1856 185 Kwan Denise MD, [facility] /EPI
== END 2018-09-09 20:54 | disposition home or self-care (01) ==
LOC: M.ERS 18:14
PROVIDERS: Physician Assistant
DX: K52.9 Noninfective gastroenteritis and colitis, unspecified (principal); I10 Essential (primary) hypertension; J44.9 Chronic obstructive pulmonary disease, unspecified

== ENCOUNTER 2019-01-24 10:24 | Inpatient (IN) | payer OTHER | END 2019-01-27 15:40 | disposition home or self-care (01) | DRG 386 | LOC: M.ERS 10:24 → M.TBA-ER 12:31 → M.ORTHSURG 13:01 | PROVIDERS: ADMIT Internal Medicine | PROC: 0DBK8ZX Excision of Ascending Colon, Via Natural or Artificial Opening Endoscopic, Diagnostic (ICD-10-PCS; principal; 2019-01-26) | PROC: 0DBN8ZX Excision of Sigmoid Colon, Via Natural or Artificial Opening Endoscopic, Diagnostic (ICD-10-PCS; principal; 2019-01-26) | PROC: 0DBL8ZX Excision of Transverse Colon, Via Natural or Artificial Opening Endoscopic, Diagnostic (ICD-10-PCS; principal; 2019-01-26) | PROC: 0DBH8ZX Excision of Cecum, Via Natural or Artificial Opening Endoscopic, Diagnostic (ICD-10-PCS; principal; 2019-01-26) | PROC: 0DBM8ZX Excision of Descending Colon, Via Natural or Artificial Opening Endoscopic, Diagnostic (ICD-10-PCS; principal; 2019-01-26) | PROC: 0DBP8ZX Excision of Rectum, Via Natural or Artificial Opening Endoscopic, Diagnostic (ICD-10-PCS; principal; 2019-01-26) | DX: K51.80 Other ulcerative colitis without complications (principal); K90.9 Intestinal malabsorption, unspecified; Z83.3 Family history of diabetes mellitus; K51.40 Inflammatory polyps of colon without complications; R63.0 Anorexia; I10 Essential (primary) hypertension; J44.9 Chronic obstructive pulmonary disease, unspecified; K64.4 Residual hemorrhoidal skin tags; K62.1 Rectal polyp; D64.9 Anemia, unspecified; E61.1 Iron deficiency; E53.8 Deficiency of other specified B group vitamins; Z91.19 Patient's noncompliance with other medical treatment and regimen; Z86.19 Personal history of other infectious and parasitic diseases; Z79.899 Other long term (current) drug therapy; Z82.49 Family history of ischemic heart disease and other diseases of the circulatory system ==

== ENCOUNTER 2019-05-22 17:32 | Inpatient (IN) | payer OTHER ==
[~2019-05-22] VITALS: Ht 152.4 cm; Wt 89.8 kg
[~2019-05-22 17:32] MED LIST changes: +FLAGYL500 M1 PO; +IPRAT-ALBUT 0.5-3 ML INH; +IRON325 PO; +MEDROLDOSEPACK PO; +PROTONIX40 M1 PO; +THERA M PLUS T1 EAC2 PO
[2019-05-22 17:43] VITALS: BP 131/82
[2019-05-22 17:51] LABS: URINE BILIRUBIN NEGATIVE (Negative); URINE BLOOD NEGATIVE (Negative); URINE CLARITY CLEAR; URINE COLOR YELLOW; URINE GLUCOSE-RANDOM 1+ (Negative); URINE KETONES NEGATIVE (Negative); URINE LEUKOCYTES-REFLEX NEGATIVE (Negative); URINE NITRITE-REFLEX NEGATIVE (Negative); URINE PROTEIN NEGATIVE (Negative); URINE SPECIFIC GRAVITY 1.025 (1.005-1.030); URINE UROBILINOGEN 0.2 E.U./dl (0.2-1.0)
[2019-05-22] MEDS ORDERED: CHLORTHALIDONE25 MG PO (17:51)
[2019-05-22 18:11] LABS: HEMATOCRIT 42.1 % (42.0-52.0); HEMOGLOBIN 14.2 gm/dL (14.0-18.0); MCH 29.3 pg (26.0-34.0); MCHC 33.6 g/dL (28.0-37.0); MCV 87.1 fL (80.0-100.0); MPV 9.4 fl. (7.2-11.1); NUCLEATED RBCS 0 /100WBC; PLATELET COUNT* 203 thou/uL (150-400); RBC 4.83 mil/uL (4.50-6.00); RDW-CV 16.6 % (10.5-14.5); WBC 13.6 thou/uL (4.0-11.0)
[2019-05-22 18:19] LABS: CREATININE 1.5 mg/dL (0.6-1.3); POTASSIUM 4.4 mmol/L (3.5-5.1)
[2019-05-22 18:23] LABS: ALBUMIN 3.6 g/dL (3.4-5.0); TOTAL BILIRUBIN 0.6 mg/dL (<0.1-1.0); TOTAL PROTEIN 7.3 g/dL (6.4-8.2)
[2019-05-22 18:52] LABS: ABSOLUTE EOSINOPHILS 0.3 thou/uL (0.0-0.7); ABSOLUTE LYMPHOCYTES 0.8 thou/uL (0.8-5.3); ABSOLUTE MONOCYTES 0.5 thou/uL (0.0-1.2); PLATELET ESTIMATE ADEQUATE
[2019-05-22 19:54] VITALS: BP 132/76
[2019-05-22 20:08] VITALS: BP 173/90
--- NOTE | 2019-05-23 05:28 | NUR ---
PATIENT HAD DIRRHEA THROUGH NIGHT, HE DID TAKE A SHOWER AND RECEIVED ABX AND FLUIDS ORDERED. HE EXPRESSED A CONCERN ABOUT FLUID INTAKE AND WAS HESITANT TO DRINK WATER IN FEAR OF USING THE RESTROOM TOO MUCH. HE IS UP AD PHAM AND WAS UP MOST OF THE NIGHT. NO REPORTS OF NAUSEA OR PAIN. PLAN IS TO RECEIVE IV ABX. WILL CONTINUE TO FOLLOW PLAN OF CARE.
[2019-05-23 08:00] VITALS: BP 104/59
[2019-05-23 15:27] VITALS: BP 105/63
--- NOTE | 2019-05-23 16:40 | NUR ---
PT A&Ox4. VITALS STABLE. IV PATENT. TOLERATING CLEAR LIQUID. UP AD PHAM. BM TODAY. MINIMAL PAIN, DENIED PAIN MEDS. PAPIER MACHE MOLDER AWEAR OF PT NEEDING MEDICAID. GI ON CASE. CALL LIGHT WITHIN REACH. WILL CONTINUE TO MONITOR.
--- NOTE | 2019-05-23 17:06 | EKG ---
[place] [address] ELECTROCARDIOGRAM REPORT Name: CARLOTTA CAMERON Room: [address] ADM IN M.R.#: [id number] Admission: 05/22/19 Attend Phys: Lamont Ribera Discharge: Date of : 49 Report #: [id number] THIS REPORT FOR: //name// [facility] ED Test Date: 2019-05-22 Test Time: 18:09:40 Pat Name: CARLOTTA CAMERON Department: Room: [facility] Gender: M Property Loss Insurance Claim Adjuster: : 1945 Requested By: Herrera Burr Order Number: [id number] MD: Neftaly Esparza Measurements Intervals [place] Rate: 79 P: 7 [place]: 153 QRS: 69 QRSD: 148 T: 6 QT: 374 QTc: 429 Interpretive Statements Sinus rhythm Right bundle branch block Abnormal inferior Q waves Compared to ECG 01/24/2019 10:50:23 Inferior Q waves now present Q waves now present Electronically Signed On 05-23-2019 17:06:06 SPEECH WRITER by Neftaly Esparza [email or web address] <ELECTRONICALLY SIGNED> By: Neftaly Esparza MD, [facility]AC 05/23/19 1706 1809 1809 Neftaly Esparza MD, [facility] /EPI
[2019-05-23 20:46] VITALS: BP 116/69
--- NOTE | 2019-05-24 04:55 | NUR ---
ASSUMED CARE OF PT 05/23/19 AT APPROX 1930, PT A&OX4 THROUGHOUT SHIFT, VSS, PT ON ROOM AIR, UP AD PHAM, PT DID NOT VOICE ANY COMPLAINTS OF PAIN THIS SHIFT, ASSESSMENTS AND HOURLY ROUNDINGS COMPLETED, WILL CONTINUE TO MONITOR.
[2019-05-24 08:15] VITALS: BP 153/69
--- NOTE | 2019-05-24 12:03 | NUR ---
SW met with pt to complete initial assessment, introduce self, and SW role. Pt alert, oriented. Pt lives alone. Pt does not anticipate any dc needs at this time and did not have any questions or concerns. Pt has home nebulizer; no other DME.
--- NOTE | 2019-05-24 15:15 | CON ---
[address] [address] CONSULTATION Name: CARLOTTA CAMERON Room: [address] ADM IN M.R.#: [id number] Admission: 05/22/19 Attend Phys: Lamont Ribera Discharge: Date of : 49 Report #: [id number] THIS REPORT FOR: //name// CC: Ana Sims DICTATED BY: Alison Olmstead [facility] DATE OF SERVICE: 05/23/2019 Please note at the time of this dictation, the patient was seen and physically examined by myself. REASON FOR CONSULTATION: Possible UC flare. HISTORY OF PRESENT ILLNESS: This is a 73-year-old male who is well known to our practice, who has a longstanding history since 2008 for UC. He has taken sulfasalazine in the past and has been unable to afford other medications before. When the patient was here in January, he underwent a colonoscopy that showed left-sided ulcerative colitis. He was placed on prednisone at that time 40 mg daily, which he has been maintained on since that time as we have been checking into biologics. When the patient was seen in the office in March, he had not followed through with filling out all of his paperwork. We gave him all the paperwork there in the office and told him how to fill it out and he has subsequently said that he lost it; however, he does state his insurance changed. The 04/05/2019, he did call our office and told one of the schedulers that he had had the insurance changed, but that was not forwarded to anyone as we did a biological investigation at that time. He has been maintained on the prednisone since that time. He states his bowels have been moving about once a day with no diarrhea, they have been formed, he has been eating and no abdominal pain. He did state that he was tapering off some of his steroids, but it is unclear in regards to that. He states yesterday he had abrupt onset of some abdominal cramping and then he had lots of loose stools with no bright red blood. He denies taking any antibiotics or being around anyone sick. Prior to coming in, the patient was noticing for a week to 2 weeks prior to coming in, he was having urgency and having a bowel movement and sometimes would be incontinent, but it would be formed stool. ALLERGIES: No known drug allergies. MEDICATIONS: From home include aspirin, albuterol, Advair, Coreg, Protonix, Thera-Plus, iron, folic acid, prednisone, Combivent. 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 [address] CONSULTATION Name: CARLOTTA CAMERON Room: [address] IN M.R.#: [id number] Admission: 05/22/19 Attend Phys: Lamont Ribera Discharge: Date of : 49 Report #: [id number] has a negative viral load at this time. He did have TB and acute hepatitis testing back in January, which were all negative. FAMILY HISTORY: Noncontributory. SOCIAL HISTORY: Denies any alcohol, tobacco, or illegal drug use at this time. REVIEW OF SYSTEMS: Twelve-point review of systems is essentially negative except what is mentioned in the HPI. PHYSICAL EXAMINATION: VITAL SIGNS: Temperature 36.5, pulse 62, respirations 18, blood pressure 104/59. HEART: Regular rate and rhythm. LUNGS: Clear. ABDOMEN: Soft, positive bowel sounds in all 4 quadrants with no masses or tenderness noted. LABORATORY DATA: Hemoglobin 14.2, white count is 13.6, platelets 203. GFR is 46. CT of the abdomen and pelvis on admission showed that the gallbladder was unremarkably intact. Bile ducts were normal. Small bowel shows fluid filled and the right colon is fluid filled with some atrophy in the wall of the sigmoid colon is noted similar to previous study. IMPRESSION: 1. Diarrhea. 2. Abdominal pain. 3. Likely bout of enteritis and not UC flare. 4. Leukocytosis. 5. History of ulcerative colitis, currently on prednisone. PLAN: 1. Continue his prednisone 40 mg daily. 2. Continue his antibiotics, Cipro and Flagyl. 3. We will check ESR and CRP. 4. Bentyl a.c. and at bedtime. 5. Awaiting stool cultures. 6. Further recommendations to be made once the above have all been noted. Thank you for allowing us to participate in this patient's care. Please do not hesitate to call with any questions in regard to this consult. [address] [address] CONSULTATION Name: CARLOTTA CAMERON Room: [address] IN M.R.#: [id number] Admission: 05/22/19 Attend Phys: Lamont Ribera Discharge: Date of : 47 Report #: [id number] Agree with above assessment and plan by Alison Olmstead <ELECTRONICALLY SIGNED> By: Mikal Farrar MD 05/24/19 1515 1137 1212Mikal Farrar MD /nt
[2019-05-24 16:00] VITALS: BP 119/66
--- NOTE | 2019-05-24 18:42 | NUR ---
PATIENT AMBULATING IN HALLWAY AND IN ROOM THROUGHOUT SHIFT. ALL SAFETY MEASURES MAINTAINED. PATIENT DENIES FURTHER NEEDS AT THIS TIME. PATIENT REPORTS NO BMS THIS SHIFT.
[2019-05-24 20:00] VITALS: BP 112/57
[2019-05-25 04:35] LABS: HEMATOCRIT 35.7 % (42.0-52.0); MCH 29.4 pg (26.0-34.0); MCHC 33.8 g/dL (28.0-37.0); MPV 9.3 fl. (7.2-11.1); RBC 4.1 mil/uL (4.50-6.00); RDW-CV 16.3 % (10.5-14.5); WBC 11.8 thou/uL (4.0-11.0)
[2019-05-25 04:36] LABS: CALCIUM 8.6 mg/dL (8.5-10.1); CREATININE 1.5 mg/dL (0.6-1.3); MAGNESIUM 2.1 mg/dL (1.8-2.4); POTASSIUM 4.6 mmol/L (3.5-5.1)
[2019-05-25 04:46] LABS: HEMOGLOBIN 12.1 gm/dL (14.0-18.0)
--- NOTE | 2019-05-25 04:50 | NUR ---
ASSUMED PATIENT CARE AT 1900. PATIENT ALERT AND ORIENTED TIMES FOUR. NO COMPLAINTS OF PAIN OR DISCOMFORT NOTED. COMPUTER AIDED DESIGN TECHNICIAN AND HOURLY ROUNDING COMPLETED DOCUMENTED. WILL CONTINUE TO MONITOR.
[2019-05-25 07:25] VITALS: BP 130/60
[2019-05-25] MEDS ORDERED: BENTYL 20 MG TA20 M1 PO (07:48)
[2019-05-25] MEDS ORDERED: PREDNISONE 20 M20 MG PO (07:48)
[2019-05-25 11:33] VITALS: BP 130/60
[2019-05-25 12:24] VITALS: BP 130/60
--- NOTE | 2019-05-25 12:25 | NUR ---
PATIENT AMBULATING IN HALLWAY AND IN ROOM THROUGHOUT SHIFT. IV DISCONTINUED. ALL SAFETY MEASURES MAINTAINED. PRESCRIPTIONS SENT TO PATIENTS PERFERRED PHARMACY. PATIENT DISCHARGED WITH ALL DISCHARGE PAPERWORK, HEART HEALTHY DIET INFORMATION, AND PRESCRIPTIONS INFORMATIONS.
== END 2019-05-25 11:55 | disposition home or self-care (01) | DRG 386 ==
LOC: M.ERS 17:32 → M.3W 18:52 → M.TBA-ER 18:52 → M.3W 20:05
PROVIDERS: Family Medicine; Internal Medicine; ADMIT Family Medicine
DX: K51.80 Other ulcerative colitis without complications (principal); N17.9 Acute kidney failure, unspecified; R65.10 Systemic inflammatory response syndrome (SIRS) of non-infectious origin without acute organ dysfunction; N18.2 Chronic kidney disease, stage 2 (mild); E86.9 Volume depletion, unspecified; I12.9 Hypertensive chronic kidney disease with stage 1 through stage 4 chronic kidney disease, or unspecified chronic kidney disease; J44.9 Chronic obstructive pulmonary disease, unspecified; D72.829 Elevated white blood cell count, unspecified; Z82.49 Family history of ischemic heart disease and other diseases of the circulatory system; Z83.3 Family history of diabetes mellitus; Z79.52 Long term (current) use of systemic steroids; Z79.82 Long term (current) use of aspirin; Z79.899 Other long term (current) drug therapy

== ENCOUNTER 2019-05-28 12:04 | Emergency (ER) | payer OTHER ==
[~2019-05-28] VITALS: Ht 172.7 cm; Wt 89.8 kg
[~2019-05-28 12:04] MED LIST changes: +BENTYL 20 MG TA20 M1 PO; +CHLORTHALIDONE25 MG PO
[2019-05-28 12:21] LABS: URINE BILIRUBIN NEGATIVE (Negative); URINE BLOOD NEGATIVE (Negative); URINE CLARITY CLEAR; URINE COLOR YELLOW; URINE GLUCOSE-RANDOM NEGATIVE (Negative); URINE KETONES NEGATIVE (Negative); URINE LEUKOCYTES-REFLEX NEGATIVE (Negative); URINE NITRITE-REFLEX NEGATIVE (Negative); URINE PROTEIN NEGATIVE (Negative); URINE SPECIFIC GRAVITY 1.015 (1.005-1.030); URINE UROBILINOGEN 0.2 E.U./dl (0.2-1.0)
[2019-05-28 12:30] LABS: HEMATOCRIT 43.2 % (42.0-52.0); HEMOGLOBIN 14.7 gm/dL (14.0-18.0); MCH 29.2 pg (26.0-34.0); MCHC 34.1 g/dL (28.0-37.0); MCV 85.8 fL (80.0-100.0); MPV 9.3 fl. (7.2-11.1); NUCLEATED RBCS 0 /100WBC; PLATELET COUNT* 291 thou/uL (150-400); RBC 5.04 mil/uL (4.50-6.00); RDW-CV 16.1 % (10.5-14.5)
[2019-05-28 12:39] LABS: CALCIUM 8.9 mg/dL (8.5-10.1); CREATININE 1.5 mg/dL (0.6-1.3); POTASSIUM 4.7 mmol/L (3.5-5.1)
[2019-05-28 12:43] LABS: ALBUMIN 3.5 g/dL (3.4-5.0); TOTAL BILIRUBIN 0.4 mg/dL (<0.1-1.0)
[2019-05-28 13:22] LABS: ABSOLUTE MONOCYTES 1.2 thou/uL (0.0-1.2); ABSOLUTE NEUTROPHILS 13.8 thou/uL (1.6-8.1); PLATELET ESTIMATE ADEQUATE
[2019-05-28 13:23] LABS: ANISOCYTOSIS 1+
[2019-05-28 15:33] VITALS: BP 148/78
== END 2019-05-28 15:34 | disposition home or self-care (01) ==
LOC: M.ERS 12:04
PROVIDERS: Nurse Practitioner Family
DX: R19.7 Diarrhea, unspecified (principal); I10 Essential (primary) hypertension; J44.9 Chronic obstructive pulmonary disease, unspecified

== ENCOUNTER 2019-06-09 11:01 | Inpatient (IN) | payer OTHER ==
[~2019-06-09] VITALS: Ht 172.7 cm; Wt 87.0 kg
[2019-06-09 11:07] VITALS: BP 98/58
[2019-06-09 11:42] LABS: HEMATOCRIT 42.8 % (42.0-52.0); HEMOGLOBIN 14.5 gm/dL (14.0-18.0); MCH 29.3 pg (26.0-34.0); MCV 86.3 fL (80.0-100.0); MPV 9.1 fl. (7.2-11.1); NUCLEATED RBCS 0 /100WBC; PLATELET COUNT* 263 thou/uL (150-400); RBC 4.95 mil/uL (4.50-6.00); RDW-CV 15.7 % (10.5-14.5); WBC 18.3 thou/uL (4.0-11.0)
[2019-06-09 11:48] LABS: CALCIUM 9.2 mg/dL (8.5-10.1); CREATININE 2.5 mg/dL (0.6-1.3); POTASSIUM 4.1 mmol/L (3.5-5.1)
[2019-06-09 11:53] LABS: ALBUMIN 3.6 g/dL (3.4-5.0); TOTAL BILIRUBIN 0.8 mg/dL (<0.1-1.0); TOTAL PROTEIN 7.4 g/dL (6.4-8.2)
[2019-06-09 12:26] LABS: ABSOLUTE LYMPHOCYTES 3.1 thou/uL (0.8-5.3); ABSOLUTE MONOCYTES 0.7 thou/uL (0.0-1.2); ABSOLUTE NEUTROPHILS 14.5 thou/uL (1.6-8.1); PLATELET ESTIMATE ADEQUATE
[2019-06-09 12:27] LABS: OVALOCYTES Occasional
[2019-06-09 14:57] VITALS: BP 107/70
[2019-06-09 15:00] VITALS: BP 112/60
--- NOTE | 2019-06-09 16:06 | EKG ---
[place] [address] ELECTROCARDIOGRAM REPORT Name: CARLOTTA CAMERON Room: [address] ADM IN M.R.#: [id number] Admission: 06/09/19 Attend Phys: Lamont Ribera Discharge: Date of : 49 Report #: [id number] THIS REPORT FOR: //name// [facility] ED Test Date: 2019-06-09 Test Time: 12:08:26 Pat Name: CARLOTTA CAMERON Department: Room: [facility] Gender: M Educational Advisor: [place] : 1945 Requested By: Herrera Burr Order Number: [id number] MD: Mario Mallory Measurements Intervals [place] Rate: 75 P: -13 [place]: 171 QRS: 70 QRSD: 159 T: 4 QT: 399 QTc: 446 Interpretive Statements Sinus rhythm Right bundle branch block Possible inferior infarct, old Abnormal lateral Q waves Compared to ECG 05/22/2019 18:09:40 no significant change Electronically Signed On 06-09-2019 16:06:29 BLANKET INSPECTOR by Mario Mallory [email or web address] <ELECTRONICALLY SIGNED> By: Mario Mallory MD, [facility] 06/09/19 1606 1208 1208 Mario Mallory MD, [facility] /EPI
[2019-06-09 21:00] VITALS: BP 116/69
[2019-06-10 04:14] LABS: ABSOLUTE LYMPHOCYTES 0.6 thou/uL (0.8-5.3); ABSOLUTE MONOCYTES 0.2 thou/uL (0.0-1.2); ABSOLUTE NEUTROPHILS 7.4 thou/uL (1.6-8.1); BASOPHILS 0.2 %; EOSINOPHILS 0.2 %; HEMOGLOBIN 13.1 gm/dL (14.0-18.0); LYMPHOCYTES 7.6 %; MCH 29.1 pg (26.0-34.0); MCHC 33.6 g/dL (28.0-37.0); MCV 86.7 fL (80.0-100.0); MONOCYTES 1.9 %; MPV 9.1 fl. (7.2-11.1); NUCLEATED RBCS 0 /100WBC; PLATELET COUNT* 205 thou/uL (150-400); POLYS 90.1 %; RDW-CV 15.6 % (10.5-14.5); WBC 8.3 thou/uL (4.0-11.0)
[2019-06-10 04:31] LABS: ALBUMIN 2.9 g/dL (3.4-5.0); CREATININE 1.7 mg/dL (0.6-1.3); POTASSIUM 3.9 mmol/L (3.5-5.1); TOTAL BILIRUBIN 0.7 mg/dL (<0.1-1.0); TOTAL PROTEIN 6.2 g/dL (6.4-8.2)
[2019-06-10 07:30] VITALS: BP 126/68
[2019-06-10] MEDS ORDERED: CARVEDILOL6.25 M1 PO (11:43)
[2019-06-10 12:30] LABS: URINE BILIRUBIN NEGATIVE (Negative); URINE BLOOD NEGATIVE (Negative); URINE CLARITY CLEAR; URINE COLOR YELLOW; URINE GLUCOSE-RANDOM 1+ (Negative); URINE KETONES NEGATIVE (Negative); URINE LEUKOCYTES-REFLEX NEGATIVE (Negative); URINE NITRITE-REFLEX NEGATIVE (Negative); URINE PROTEIN NEGATIVE (Negative); URINE UROBILINOGEN 0.2 E.U./dl (0.2-1.0)
[2019-06-10 16:30] VITALS: BP 148/77
--- NOTE | 2019-06-10 16:35 | CON ---
[address] [address] CONSULTATION Name: CARLOTTA CAMERON Room: [address] IN M.R.#: [id number] Admission: 06/09/19 Attend Phys: Lamont Ribera Discharge: Date of : 49 Report #: [id number] THIS REPORT FOR: //name// CC: Ana Medina DICTATED BY: Alison Olmstead [facility] DATE OF SERVICE: 06/10/2019 Please note at the time of this dictation, the patient was seen and physically examined by myself. REASON FOR CONSULTATION: Flaring of his UC, diarrhea. HISTORY OF PRESENT ILLNESS: This is a 73-year-old male who is well known to our practice, who was recently hospitalized in May for what appeared to be enteritis. He was treated accordingly and his symptoms improved after that. He was still being maintained on Bentyl as well as prednisone. He was not taking any sulfasalazine, folic acid. Currently, the patient is applying for Medicaid on top of Medicare to help with his biologic supplementation. The patient has been attempting to get paperwork completed since his last colonoscopy in January, which showed left-sided ulcerative colitis. He has been maintained on prednisone since that time. The patient states that on 05/31/2019, he turned in his paperwork to apply for Medicaid. We will continue to follow to see when this approval occurs. If he is denied then we can do the patient assistance program for him on one of the biologics. The patient states prior to Thursday, his bowels were formed up and going a couple of times a day and he was doing fairly well since his last hospitalization when he was discharged. The patient states on Thursday and Thursday up until the day of admission, he was having multiple bowel movements. He said every 5-10 minutes, every couple of hours and he could not quit going. He denied any fever, chills, or any nausea or vomiting. He states at times he may have a wave of nausea, but no vomiting noted. He has not noticed any bright red blood or melanotic stool and has not noticed any mucus either. He was still taking his prednisone 40 mg daily as well. ALLERGIES: No known drug allergies. MEDICATIONS FROM HOME: Lisinopril, chlorthalidone, aspirin, Ventolin inhaler, dicyclomine, prednisone, Advair, carvedilol, multivitamin, iron supplement. PAST MEDICAL HISTORY: History of UC, history of hepatitis C and treated and was successful in treatment, hypertension, [place] [address] CONSULTATION Name: CARLOTTA CAMERON Room: [address] IN ..#: [id number] Admission: 06/09/19 Attend Phys: Lamont Ribera Discharge: Date of : 49 Report #: [id number] PAST SURGICAL HISTORY: Negative for any surgeries. FAMILY HISTORY: Noncontributory. SOCIAL HISTORY: Denies any alcohol, tobacco or illegal drug use. REVIEW OF SYSTEMS: A 12-point review of systems is essentially negative except what is mentioned in the HPI. PHYSICAL EXAMINATION: VITAL SIGNS: Temperature 36.4, pulse 71, respirations 18, blood pressure 126/68. HEART: Regular rate and rhythm. LUNGS: Clear. ABDOMEN: Soft, positive bowel sounds in all 4 quadrants with some very minimal tenderness noted in the epigastric area. LABORATORY DATA: Hemoglobin is 13.1, white count is 8.3, platelets 205. GFR is 40. ESR is 23, CRP is 5.8, BUN is 61 and creatinine is 1.7. CT of the abdomen and pelvis showed some distal colonic mucosal fatty infiltrations of the sigmoid and rectal area. IMPRESSION: 1. Ulcerative colitis flare. 2. Diarrhea. 3. Abdominal pain, very mild. 4. Chronic kidney disease. 5. History of hepatitis C virus, treated successfully. PLAN: 1. Continue his IV steroids. 2. Bentyl 20 mg a.c. and at bedtime. 3. Awaiting full stool culture workup. 4. Awaiting approval by Medicaid, so that he can get started on a biologic. Thank you for allowing us to participate in patient's care. Please do not hesitate to call with any questions in regard to this consult. <ELECTRONICALLY SIGNED> By: Jass Ly DO 06/10/19 1635 1043 1101Jass Ly DO /nt
[2019-06-10 21:00] VITALS: BP 142/98
[2019-06-11 05:11] LABS: HEMATOCRIT 36.3 % (42.0-52.0); HEMOGLOBIN 12.1 gm/dL (14.0-18.0); MCH 29.1 pg (26.0-34.0); MCHC 33.4 g/dL (28.0-37.0); MPV 9.1 fl. (7.2-11.1); RBC 4.17 mil/uL (4.50-6.00); RDW-CV 15.8 % (10.5-14.5); WBC 12.1 thou/uL (4.0-11.0)
[2019-06-11 05:23] LABS: ALBUMIN 2.8 g/dL (3.4-5.0); CALCIUM 8.9 mg/dL (8.5-10.1); CREATININE 1.5 mg/dL (0.6-1.3); MAGNESIUM 1.9 mg/dL (1.8-2.4); POTASSIUM 4.2 mmol/L (3.5-5.1); TOTAL BILIRUBIN 0.8 mg/dL (<0.1-1.0)
[2019-06-11 07:30] VITALS: BP 146/75
[2019-06-11 20:40] VITALS: BP 162/73
[2019-06-12 04:55] LABS: HEMATOCRIT 32.3 % (42.0-52.0); HEMOGLOBIN 11.2 gm/dL (14.0-18.0); MCH 29.6 pg (26.0-34.0); MCHC 34.7 g/dL (28.0-37.0); MCV 85.1 fL (80.0-100.0); MPV 8.7 fl. (7.2-11.1); NUCLEATED RBCS 0 /100WBC; PLATELET COUNT* 190 thou/uL (150-400); RBC 3.79 mil/uL (4.50-6.00); RDW-CV 15.3 % (10.5-14.5)
[2019-06-12 05:41] LABS: CALCIUM 8.9 mg/dL (8.5-10.1); CREATININE 1.4 mg/dL (0.6-1.3); POTASSIUM 3.8 mmol/L (3.5-5.1)
[2019-06-12 07:00] LABS: ABSOLUTE LYMPHOCYTES 0.5 thou/uL (0.8-5.3); ABSOLUTE MONOCYTES 0.1 thou/uL (0.0-1.2); ABSOLUTE NEUTROPHILS 11.4 thou/uL (1.6-8.1); PLATELET ESTIMATE ADEQUATE
[2019-06-12 07:02] LABS: OVALOCYTES Occasional
[2019-06-12 07:03] LABS: ANISOCYTOSIS Occasional
[2019-06-12 07:54] VITALS: BP 173/134
[2019-06-12 08:04] VITALS: BP 173/134
[2019-06-12] MEDS ORDERED: LOMOTIL TABLET1 EACH PO (08:08)
[2019-06-12] MEDS ORDERED: PREDNISONE 20 M20 MG PO (08:08)
== END 2019-06-12 08:32 | disposition home or self-care (01) | DRG 391 ==
LOC: M.ERS 11:01 → M.TBA-ER 13:47 → M.ORTHSURG 13:47
PROVIDERS: Family Medicine; Internal Medicine; Internal Medicine Gastroenterology; ADMIT Family Medicine
DX: A08.4 Viral intestinal infection, unspecified (principal); N17.0 Acute kidney failure with tubular necrosis; K51.90 Ulcerative colitis, unspecified, without complications; E87.1 Hypo-osmolality and hyponatremia; E86.9 Volume depletion, unspecified; E86.0 Dehydration; D50.9 Iron deficiency anemia, unspecified; N18.3 Chronic kidney disease, stage 3 (moderate); I12.9 Hypertensive chronic kidney disease with stage 1 through stage 4 chronic kidney disease, or unspecified chronic kidney disease; J44.9 Chronic obstructive pulmonary disease, unspecified; Z86.19 Personal history of other infectious and parasitic diseases; Z82.49 Family history of ischemic heart disease and other diseases of the circulatory system; Z83.3 Family history of diabetes mellitus; Z79.899 Other long term (current) drug therapy; Z79.82 Long term (current) use of aspirin; Z87.891 Personal history of nicotine dependence

== ENCOUNTER 2019-07-07 15:02 | Inpatient (IN) | payer OTHER ==
[~2019-07-07] VITALS: Ht 172.7 cm; Wt 87.3 kg
[~2019-07-07 15:02] MED LIST changes: +CARVEDILOL6.25 M1 PO; +LOMOTIL TABLET1 EACH PO
[2019-07-07 15:17] VITALS: BP 96/55
[2019-07-07] MEDS ORDERED: ELIQUIS2.5 MG PO (15:23)
[2019-07-07 16:14] LABS: ABSOLUTE BASOPHILS 0.1 thou/uL (0.0-0.2); ABSOLUTE LYMPHOCYTES 1.2 thou/uL (0.8-5.3); ABSOLUTE MONOCYTES 0.7 thou/uL (0.0-1.2); ABSOLUTE NEUTROPHILS 7.1 thou/uL (1.6-8.1); BASOPHILS 1.2 %; EOSINOPHILS 0.3 %; HEMATOCRIT 34.2 % (42.0-52.0); HEMOGLOBIN 11.9 gm/dL (14.0-18.0); LYMPHOCYTES 13.2 %; MCH 29.8 pg (26.0-34.0); MCHC 34.7 g/dL (28.0-37.0); MCV 85.9 fL (80.0-100.0); MONOCYTES 7.8 %; MPV 8.7 fl. (7.2-11.1); NUCLEATED RBCS 0 /100WBC; PLATELET COUNT* 189 thou/uL (150-400); POLYS 77.5 %; RBC 3.98 mil/uL (4.50-6.00); RDW-CV 15.4 % (10.5-14.5); WBC 9.2 thou/uL (4.0-11.0)
[2019-07-07 16:20] LABS: CALCIUM 8.3 mg/dL (8.5-10.1); CREATININE 1.6 mg/dL (0.6-1.3)
[2019-07-07 16:20] LABS: INFLUENZA A ANTIGEN Negative (Negative); INFLUENZA B ANTIGEN Negative (Negative)
[2019-07-07 16:24] LABS: ALBUMIN 2.7 g/dL (3.4-5.0); TOTAL BILIRUBIN 0.7 mg/dL (<0.1-1.0); TOTAL PROTEIN 6.6 g/dL (6.4-8.2)
[2019-07-07 17:41] LABS: URINE BILIRUBIN NEGATIVE (Negative); URINE BLOOD NEGATIVE (Negative); URINE CLARITY CLEAR; URINE COLOR YELLOW; URINE GLUCOSE-RANDOM 2+ (Negative); URINE KETONES NEGATIVE (Negative); URINE LEUKOCYTES-REFLEX NEGATIVE (Negative); URINE NITRITE-REFLEX NEGATIVE (Negative); URINE PROTEIN 1+ (Negative); URINE SPECIFIC GRAVITY 1.025 (1.005-1.030); URINE UROBILINOGEN 0.2 E.U./dl (0.2-1.0)
[2019-07-07 20:25] VITALS: BP 90/50
[2019-07-07 20:40] VITALS: BP 83/50
[2019-07-08] VITALS: BP 105/59
[2019-07-08 04:00] VITALS: BP 145/71
[2019-07-08 05:45] LABS: HEMATOCRIT 29.8 % (42.0-52.0); HEMOGLOBIN 10.4 gm/dL (14.0-18.0); MCV 85.5 fL (80.0-100.0); MPV 8.7 fl. (7.2-11.1); RBC 3.48 mil/uL (4.50-6.00); RDW-CV 15.4 % (10.5-14.5); WBC 8.7 thou/uL (4.0-11.0)
[2019-07-08 06:08] LABS: ALBUMIN 2.3 g/dL (3.4-5.0); CALCIUM 7.3 mg/dL (8.5-10.1); CREATININE 1.5 mg/dL (0.6-1.3); MAGNESIUM 1.6 mg/dL (1.8-2.4); POTASSIUM 3.4 mmol/L (3.5-5.1); TOTAL BILIRUBIN 0.5 mg/dL (<0.1-1.0); TOTAL PROTEIN 5.5 g/dL (6.4-8.2)
--- NOTE | 2019-07-08 07:53 | NUR ---
PT ARRIVED TO THE UNIT @ 2039. PT HYPOTENSIVE. NOTIFIED DR. FLUID BOLUSES ORDERED. PT HAD STRONG CONGESTED COUGH FOR SEVERAL HOURS DURING THE NIGHT. CALLED DR MULTIPLE TIMES TO FIND A MEDICATION THAT WAS ACCESSIBLE AND AVAIBLE ON ENVIRONMENTAL STUDIES DEPARTMENT CHAIR. REPIRATORY NOTIFIED PT DESATING. SO CONGESTED SNOT FILLED UP NASAL CANNULA. RT SUCTIONED PT AND PLACED ON VENTI MASK FOR A FEW HRS. GAVE PT ONE TIME PROMETHAZINE WITH MUCINEX DM PNERGAN/CODEINE COUGH SYRUP NOT AVAILABLE. PT FINALLY HAD SOME RELIEF. REPLACED PO K+. ATTEMPTED TO REPLACE IV MAG- STOPPED AFTER HALF BAG WITH PVCS INCREASED. PVCS RESOLVED WITH STOPPING OF MAG INFUSION. SLOWED BOLUSES WITH RESOLUTION OF HYPOTENSION TO BASAL RATE. PT WAS FINALLY ABLE TO GET SOME REST. STEADY RESP RATE WITH O2 SAT IN UPPER 90'S REMAINDER OF SHIFT. CALL LIGHT IN REACH. HOURLY ROUNDING FOR SAFETY.
[2019-07-08 08:48] VITALS: BP 111/51
[2019-07-08 11:33] VITALS: BP 133/68
--- NOTE | 2019-07-08 12:36 | EKG ---
[place] [address] ELECTROCARDIOGRAM REPORT Name: CARLOTTA CAMERON Room: [address] ADM IN .R.#: [id number] Admission: 07/07/19 Attend Phys: Cindy Nash Discharge: Date of : 49 Report #: [id number] THIS REPORT FOR: //name// [facility] Test Date: 2019-07-07 Test Time: 22:28:50 Pat Name: CARLOTTA CAMERON Department: Room: [address] Gender: M Chicken Hanger: BILLY : 1945 Requested By: John Saab Order Number: [id number] Coni MD: Neftaly Esparza Measurements Intervals [place] Rate: 67 P: 48 [place]: 153 QRS: 91 QRSD: 164 T: -9 QT: 442 QTc: 467 Interpretive Statements Sinus rhythm RBBB and LPFB Compared to ECG 06/09/2019 12:08:26 no change Electronically Signed On 07-08-2019 12:36:20 GUEST LAUNDRY ATTENDANT by Neftaly Esparza [email or web address] <ELECTRONICALLY SIGNED> By: Neftaly Esparza MD, [facility] 07/08/19 1236 27 Neftaly Esparza MD, FAC /EPI
--- NOTE | 2019-07-08 14:50 | NUR ---
Pt lives at home in an apt alone. Pt uses nebulizer. Pt was pending Medicaid per previous record. No use of any other DME or known hx of any HH or SNF.
[2019-07-08 20:00] VITALS: BP 127/57
--- NOTE | 2019-07-08 20:06 | NUR ---
PATIENT AWAKE IN BED. PATIENT DENIES FURTHER NEEDS AND QUESTIONS AT THIS TIME. ALL SAFETY MEASURES MAINTAINED.
--- NOTE | 2019-07-08 22:50 | NUR ---
PT A+OX4 BUT FORGETFUL @ TIMES (NEEDS TO BE REMINDED TO WEAR OXYGEN IF IT FALLS OFF WHILE SLEEPING). PT WAS DESATING WHILE ASLEEP (LOW 80'). REPOSITIONED IN BED. PAGED RT. SWITCHED PT FROM NC TO VENTI MASK AND APPLIED DISPOSABLE O2 SENSORS FOR MORE ACURATE READINGS. ALSO COVERED PT UP WITH WARM BLANKETS. GAVE COUGH SYRUP. EFFECTIVE. PT IS MORE RELAXED WITH NO APPARENT RESPIRATORY DISTRESS OR DISCOMFORT. CALL LIGHT IN REACH. WILL CONTINUE FREQUENT MONITORING.
[2019-07-08 23:50] LABS: BE -2.3 mmol/L (-2 to +3); PCO2 VENOUS 33.4 mmHg (41.0-51.0); PO2 VENOUS 30.6 mmHg (35.0-45.0)
[2019-07-09] VITALS (23 sets, daily range): BP systolic 85–140; BP diastolic 47–83
[2019-07-09 00:24] LABS: CALCIUM 7.8 mg/dL (8.5-10.1); CREATININE 1.2 mg/dL (0.6-1.3); POTASSIUM 3.4 mmol/L (3.5-5.1)
[2019-07-09 01:19] LABS: ABSOLUTE BASOPHILS 0.1 thou/uL (0.0-0.2); ABSOLUTE LYMPHOCYTES 0.9 thou/uL (0.8-5.3); ABSOLUTE MONOCYTES 0.4 thou/uL (0.0-1.2); ABSOLUTE NEUTROPHILS 7.2 thou/uL (1.6-8.1); EOSINOPHILS 0.1 %; HEMATOCRIT 28.4 % (42.0-52.0); LYMPHOCYTES 10.1 %; MCH 30.2 pg (26.0-34.0); MCHC 35.4 g/dL (28.0-37.0); MCV 85.3 fL (80.0-100.0); MONOCYTES 4.9 %; MPV 8.4 fl. (7.2-11.1); NUCLEATED RBCS 0 /100WBC; PLATELET COUNT* 125 thou/uL (150-400); POLYS 83.9 %; RBC 3.33 mil/uL (4.50-6.00); RDW-CV 15.4 % (10.5-14.5); WBC 8.5 thou/uL (4.0-11.0)
[2019-07-09 02:25] LABS: CALCIUM 7.6 mg/dL (8.5-10.1); CREATININE 1.2 mg/dL (0.6-1.3); POTASSIUM 3.4 mmol/L (3.5-5.1)
--- NOTE | 2019-07-09 11:20 | EKG ---
[place] [address] ELECTROCARDIOGRAM REPORT Name: CARLOTTA CAMERON Room: [address] ADM IN M.R.#: [id number] Admission: 07/07/19 Attend Phys: Cindy Nash Discharge: Date of : 49 Report #: [id number] THIS REPORT FOR: //name// [facility] Test Date: 2019-07-08 Test Time: 23:25:03 Pat Name: CARLOTTA CAMERON Department: Room: [facility] Gender: M Bellstaff: KREED7 : 1945 Requested By: John Saab Order Number: [id number] Reading MD: Neftaly Esparza Measurements Intervals [place] Rate: 81 P: 41 [place]: 158 QRS: 74 QRSD: 161 T: 9 QT: 400 QTc: 465 Interpretive Statements Sinus rhythm Ventricular bigeminy Right bundle branch block Abnormal inferior Q waves Compared to ECG 07/07/2019 22:28:50 Ventricular premature complex(es) now present Left posterior fascicular block no longer present Electronically Signed On 07-09-2019 11:19:32 HEATING TECHNICIAN by Neftaly Esparza [email or web address] <ELECTRONICALLY SIGNED> By: Neftaly Esparza MD, [facility] 07/09/19 1119 2325 2325 Neftaly Esparza MD, [facility] /EPI
--- NOTE | 2019-07-09 12:12 | NUR ---
1114 PT RECEIVED IN TRANSFER PER BED FROM 201. SEE ICU ASSESSMENT. LESLIE PLACED PER ORDER DR KELLER. DR KELLER ALSO STOPPED FLUID BOLUS. BIPAP ORDERED
--- NOTE | 2019-07-09 12:12 | NUR ---
RECEIVED REPORT FROM RUBENS JO. ASSUMED CARE OF PT AROUND 0730. PT A&O X4, APPEARED A BIT ANXIOUS. O2 SAT 94% ON VENTIMASK AT 50%. VSS. EXPRESS MANAGER IN PLACE TRACING SR. AM ASSESSMENT AND VITALS COMPLETED CHARTED. IV INACT TO LEFT AC. IV FLUIDS DC'D THIS AM PER DR ESTEVEZ. PT UP IN BEDSIDE CHAIR DURING AM ASSESSMENT THIS AM. UP WITH SBA TO COMMODE, LOOSE BM NOTED BUT NOT LIQUID. CDIFF PENDING. ISOLATION MAINTAINED. DR VELASQUEZ IN TO SEE PT - RESUMED HOME MEDS AND SIGNED OFF. AROUND 1050 PT BECAME HYPOTENSIVE 69/37. MANUAL BP ABOUT THE SAME 70/40. PT ASYMPTOMATIC WITH BP. DR KELLER ROUNDING ON PT AT THE TIME, ORDERED 125MG SOLUMEDROL STAT - GIVEN. ALSO ORDERED 250ML FLUID BOLUS NS WIDE OPEN, STARTED. PT SENT TO ICU. TRANSFERED WITH TWO RN'S AND ON THE MONITOR. BEDSIDE REPORT GIVEN TO ELZA JO. CHART GIVEN TO ICU.
[2019-07-09 14:41] LABS: MAGNESIUM 1.8 mg/dL (1.8-2.4); POTASSIUM 3.8 mmol/L (3.5-5.1)
--- NOTE | 2019-07-09 17:02 | NUR ---
PATIENT IS PROGRESSING TOWARDS GOALS. TO ICU THIS MORNING. VSS. DIURESED POST LASIX. DENIES SHORTNESS OF AIR. STOOL RETURNED NEGATIVE FOR CDIFF. WILL BE ABLE TO BE OFF OF BIPAP FOR DINNER. NO VISITORS BUT PT HAS TEXTED FAMILY
--- NOTE | 2019-07-09 18:24 | NUR ---
PT DECLINED EVENING MEAL
[2019-07-10] VITALS (27 sets, daily range): BP systolic 94–128; BP diastolic 51–81
--- NOTE | 2019-07-10 05:17 | NUR ---
vitals stable,, afebrile. on bipap through most of the night, good spo2 on 4-5L, but patient complains of sob. otherwise uneventful night. 400cc uop, bmx1, soft but formed. able to turn self in bed. call light within reach. will conitnue monitoring.
[2019-07-10 06:15] LABS: HEMATOCRIT 27.9 % (42.0-52.0); HEMOGLOBIN 9.9 gm/dL (14.0-18.0); MCH 30.1 pg (26.0-34.0); MCHC 35.4 g/dL (28.0-37.0); MCV 85.1 fL (80.0-100.0); MPV 8.8 fl. (7.2-11.1); NUCLEATED RBCS 0 /100WBC; PLATELET COUNT* 147 thou/uL (150-400); RBC 3.28 mil/uL (4.50-6.00); RDW-CV 15.6 % (10.5-14.5); WBC 6.1 thou/uL (4.0-11.0)
[2019-07-10 06:34] LABS: ALBUMIN 1.9 g/dL (3.4-5.0); CALCIUM 7.9 mg/dL (8.5-10.1); CREATININE 1.3 mg/dL (0.6-1.3); POTASSIUM 3.4 mmol/L (3.5-5.1); TOTAL BILIRUBIN 0.5 mg/dL (<0.1-1.0); TOTAL PROTEIN 5.8 g/dL (6.4-8.2)
[2019-07-10 07:14] LABS: ABSOLUTE LYMPHOCYTES 0.3 thou/uL (0.8-5.3); ABSOLUTE MONOCYTES 0.2 thou/uL (0.0-1.2); ABSOLUTE NEUTROPHILS 5.6 thou/uL (1.6-8.1); HYPOCHROMASIA 2+
[2019-07-10 07:15] LABS: PLATELET ESTIMATE DECREASED; TOXIC GRANULATION 1+
--- NOTE | 2019-07-10 09:19 | NUR ---
0830 BATHED. BECAME SHORT OF AIR AND COUGHING WHILE SUPINE. REPLACED ON BIPAP FOR 20 MINUTES WITH RESOLUTION OF DYSPNEA.
--- NOTE | 2019-07-10 09:19 | NUR ---
2343 ASSUMED CARE OF PATIENT. PLEASE SEE DOCUMENTED ASSESSMENT. PT CURRENTLY OFF OF BIPAP.
--- NOTE | 2019-07-10 09:45 | CON ---
[address] [address] CONSULTATION Name: CARLOTTA CAMERON Room: [address] IN M.R.#: [id number] Admission: 07/07/19 Attend Phys: Cindy Nash Discharge: Date of : 49 Report #: [id number] THIS REPORT FOR: //name// CC: Ana Saab DATE OF SERVICE: 07/09/2019 CARDIOLOGY CONSULTATION HISTORY OF PRESENT ILLNESS: The patient is a 73-year-old single white male who I was asked to see in the hospital today after he complained of being short of breath. The patient has had multiple hospitalizations here at [facility]. He was actually admitted here back in 2008 with ulcerative colitis, chronic renal insufficiency, hepatitis C, tobacco abuse, history of alcohol abuse. He was subsequently treated for his hepatitis C by the GI service. He was here in 2016 with anemia, colitis, and hip pain. 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 He was here in 2018, again with an episode of ulcerative colitis and anemia. He has been followed by the GI service. He was here in 01/2019 again with ulcerative colitis. He was here on 06/09/2019 with ulcerative colitis, dehydration, acute kidney injury. He was then discharged. Apparently, the patient was subsequently admitted to [facility] on 06/19/2019 after being discharged here at [facility] on 06/12/2019. He was hospitalized there for 4 days. He was felt to have upper respiratory infection. He had a history of atrial fibrillation, was converted to sinus rhythm, acute kidney injury, he was anemic, COPD, ulcerative colitis. He was subsequently discharged on 06/23/2019. He went home, but then for the past several days, he has had increasing shortness of breath and fatigue. He finally came to the Emergency Room, two days ago was admitted. He was noted to have PVCs and Cardiology consultation was requested. He denies a history of chest pain, fever. He notes occasional irregular heartbeat, but no syncope. PAST MEDICAL HISTORY: No surgical procedures. He does have a history of hypertension. He apparently had a heart catheterization at [facility] in the past that showed no significant coronary artery disease. MEDICATIONS: On admission included the following; he is on albuterol inhaler, aspirin, prednisone. He has been on Eliquis in the past, lisinopril, carvedilol, chlorthalidone. ALLERGIES: He has no known drug allergies. FAMILY HISTORY: Negative for heart disease. SOCIAL HISTORY: He is , lives by himself and independent, works as a analytics senior manager. Quit smoking years ago, rarely drinks alcohol or abuse [place] [address] CONSULTATION Name: CARLOTTA CAMERON Room: [address] IN .#: [id number] Admission: 07/07/19 Attend Phys: Cindy Nash Discharge: Date of : 49 Report #: [id number] used marijuana in the past. REVIEW OF SYSTEMS: He apparently had a stroke in the past affecting his right upper extremity. He has a history of COPD, hepatitis C, chronic kidney disease. No cancer. No psychiatric illness. No chronic skin condition. PHYSICAL EXAMINATION: GENERAL: Revealed an elderly male sitting in a chair. No acute distress. VITAL SIGNS: He had a blood pressure of 120/60, pulse is 80, and he had a temperature of 100.8. HEENT: Anicteric. Conjunctivae are pink. Mucous membranes appear dry. NECK: Veins do not appear distended. CHEST: Revealed coarse breath sounds. CARDIOVASCULAR: Regular rate and rhythm, grade 2 systolic ejection murmur. ABDOMEN: Soft. EXTREMITIES: Had no pitting edema. SKIN: Cool and dry. NEUROLOGIC: Nonfocal. RADIOLOGICAL DATA: His ECG on admission showed a sinus rhythm, right bundle branch block. On the monitor, he was noted to have episodes of ventricular trigeminy and multiple PVCs. He actually had an echocardiogram in 11/2017, here at [facility] that showed ejection fraction of 55%, aortic sclerosis. He actually underwent a TANNER because of a stroke and there was no thrombus. Ejection fraction was normal. There is no evidence of a PFO. His x-rays, when he came in 2 days ago showed mild bibasilar infiltrates, mild cardiomegaly. LABORATORY DATA: Sodium 135, potassium 3.4, creatinine 1.2. His troponins are 0.06. BNP is only 9900. His TSH is 0.7. His white blood cell count 8.5, hemoglobin 10, it was 10 in January as well. The patient had a previous CT scan of the head performed a year ago here at [facility] that showed cerebral atrophy, white matter changes. No obvious stroke. IMPRESSION AND RECOMMENDATIONS: 1. Premature ventricular contractions. I would correct electrolytes. The patient has been on a beta galina. 2. Hypertension. The patient is on a beta galina and DONNA inhibitor. 3. Previous tobacco abuse. 4. Chronic obstructive pulmonary disease. 5. History of hepatitis C. 6. Ulcerative colitis. 7. Previous stroke. <ELECTRONICALLY SIGNED> By: Neftaly Esparza MD, [facility] 07/10/19 0945 0915 [id number] Esparza MD, [facility] /nt
--- NOTE | 2019-07-10 12:26 | CON ---
[address] [address] CONSULTATION Name: CARLOTTA CAMERON Room: [address] ADM IN M.R.#: [id number] Admission: 07/07/19 Attend Phys: Cindy Nash Discharge: Date of : 49 Report #: [id number] THIS REPORT FOR: //name// CC: Ana Saab DATE OF SERVICE: 07/09/2019 I was asked to see this 73-year-old gentleman for acute respiratory failure. HISTORY OF PRESENT ILLNESS: He has history of [id number] smoking, stopped smoking about 15 years ago. He has COPD. He presented to the Emergency Room on 07/07/2019 with generalized weakness and shortness of breath. He was discharged from [facility] about 10 days ago. He had paroxysmal atrial fibrillation, was started on apixaban. He is currently in normal sinus rhythm. His oxygen is increased. He is now on 6 liters of oxygen with O2 saturation of 85%. He does have cough, no sputum production. He denies vomiting or choking with eating or drinking. He had been hypotensive, but his blood pressure for the past couple of days has been okay until today, I just checked his blood pressure, it is like 70/40 and his O2 saturation is 85%. He denies chest pain. He denies fever, chills, nausea, vomiting or abdominal pain. He has diarrhea and C. diff is pending. PAST MEDICAL HISTORY: COPD, paroxysmal atrial fibrillation, history of CVA, ulcerative colitis, hypertension, brain aneurysm, and history of hepatitis C. ALLERGIES: No known drug allergies. MEDICATIONS: Currently, he is on vancomycin, levofloxacin, Protonix, Pulmicort, Eliquis, Coreg, and DuoNeb. SOCIAL HISTORY: History of 50-[id number] smoking, stopped smoking 15 years ago. FAMILY HISTORY: Hypertension. REVIEW OF SYSTEMS: As mentioned as above. He has had lower extremity edema. Other systems are otherwise negative. PHYSICAL EXAMINATION: GENERAL: This is an overweight gentleman. VITAL SIGNS: His O2 saturation on 6 liters of oxygen is 85%, respiratory rate 20, heart rate 100, blood pressure 70/40, and temperature 36. HEENT: Normocephalic, atraumatic. Pupils are equal, round, and reactive to light. He has shallow oropharynx. Nose is clear. NECK: There is no JVD, lymphadenopathy or thyromegaly. CARDIOVASCULAR: Regular rate and rhythm. [place] [address] CONSULTATION Name: CARLOTTA CAMERON Room: [address] IN [facility]#: [id number] Admission: 07/07/19 Attend Phys: Cindy Nash Discharge: Date of : 49 Report #: [id number] CHEST: Inspection is normal. LUNGS: There are bibasilar crackles and bilateral end expiratory wheezing. Percussion is within normal limit. ABDOMEN: Soft. Bowel sounds are good. There is no mass. EXTREMITIES: There is edema. LYMPHATICS: There is no lymphadenopathy. NEUROLOGIC: Alert and oriented. SKIN: Chronic changes. He has tattoos. LABORATORY DATA: I reviewed the following lab data: Chest x-ray on 07/07/2019 did not show infiltrate, but on 07/08/2019 did show bilateral infiltrate, left more than right. WBC 8.5, hemoglobin 10, and platelets 125. Sodium 135, potassium 3.4, chloride 100, CO2 of 24, BUN 26, creatinine 1.2, and glucose 104. Troponin less than 0.06. BNP on the 3rd was 900 . Albumin 2.3. Influenza A and B negative. C. diff is pending. IMPRESSION: 1. Acute respiratory failure secondary to acute exacerbation of chronic obstructive pulmonary disease, acute bronchitis versus pneumonia, cannot rule out congestive heart failure versus others. 2. Abnormal chest x-ray. 3. Hypotension? sepsis versus adrenal insufficiency versus others.. 4. Acute exacerbation of chronic obstructive pulmonary disease. 5. Acute bronchitis versus pneumonia. 6. Ex-smoker. 7. History of hepatitis C. 8. Ulcerative colitis with recent steroid treatment. 9. Dermatitis. 10. History of brain aneurysm. PLAN AND RECOMMENDATION: 1. I will transfer the patient to ICU. 2. I will give Solu-Medrol 125 mg IV now. He had been on prednisone, not since his admission? adrenal insufficiency. 3. Hold antihypertensive medication. 4. I will give normal saline 250 mL now. 5. Start BiPAP 12/8, rate of 10. Titrate FiO2 to keep O2 saturation 92%. 6. Continue bronchodilator. 7. Continue inhaled corticosteroid. 8. Solu-Medrol 125 mg IV given. We will continue Solu-Medrol 80 mg IV every 8 hours. 9. Continue Eliquis. 10. Lower extremity venous Doppler. 11. [place] [address] CONSULTATION Name: CARLOTTA CAMERON Room: [facility] ADM IN M.R.#: [id number] Admission: 07/07/19 Attend Phys: Cindy Nash Discharge: Date of : 49 Report #: [id number] 12. Continue antibiotic. 13. Stat portable chest x-ray. 14. Monitor respiratory status very closely. 15. The findings and recommendations were discussed with RN and Dr. Robbins, attending physician. 16. Follow cardiology recommendations. <ELECTRONICALLY SIGNED> By: Kirill Quinones MD 07/10/19 1226 1111 [id number] Quinones MD /nt
--- NOTE | 2019-07-10 17:17 | NUR ---
PT PROGRESSING TOWARDS GOALS. HAS REMAINED OFF OF BIPAP SINCE 829. REMAINS SOA WITH EXERTION BUT ABLE TO GET TO BSC TODAY. ABLE TO EAT TODAY. HAD ONE EPISODE OF COUGHING THAT WAS BRONCHOSPASTIC. PRN HUMIBID GIVEN. NO VISITORS BUT PT HAS SPOKEN WITH FAMILY ON TELEPHONE.
--- NOTE | 2019-07-10 21:55 | NUR ---
ASSESSMENT CHARTED. PATIENT RESTING IN BED AWAKE AND ORIENTED. PATIENT DOWNGRADED TO TELE STATUS THIS SHIFT AND WILL TRANSFER TO BED 205. REPORT CALLED TO DEYSI MORALES
[2019-07-11 04:00] VITALS: BP 122/61
--- NOTE | 2019-07-11 04:24 | NUR ---
ASSUMED CARE OF PT AT APPROX 2220. PT IS TRANSFERRED FROM ICU TO ROOM 205 PER WHEELCHAIR. PT IS AWAKE AND ORIENTED X4. PT GETS SHORT OF AIR WITH ACTIVITIES. spo2 IS 89-90 ON 2L OF O2.INCREASED O2 TO 3L, spO2 IS AT 94% AFTER SOME REST. ASSESSMENT DONE AND CHARTED. LESLIE CATHETER INTACT WITH DARK YELLOW OUTPUT. PT IS ADVISED ON ROOM SET UP AND ON THE USE OF CALL LIGHT. FALLS PRECAUTIONS IN PLACE. HOURLY ROUNDING DONE FOR PT SAFETY.
[2019-07-11 04:43] LABS: ABSOLUTE LYMPHOCYTES 0.5 thou/uL (0.8-5.3); ABSOLUTE MONOCYTES 0.3 thou/uL (0.0-1.2); ABSOLUTE NEUTROPHILS 9.8 thou/uL (1.6-8.1); BASOPHILS 0.1 %; HEMATOCRIT 26.9 % (42.0-52.0); HEMOGLOBIN 9.5 gm/dL (14.0-18.0); LYMPHOCYTES 4.3 %; MCH 30.3 pg (26.0-34.0); MCHC 35.4 g/dL (28.0-37.0); MCV 85.6 fL (80.0-100.0); MONOCYTES 2.7 %; MPV 8.6 fl. (7.2-11.1); NUCLEATED RBCS 0 /100WBC; PLATELET COUNT* 179 thou/uL (150-400); POLYS 92.9 %; RBC 3.14 mil/uL (4.50-6.00); RDW-CV 15.6 % (10.5-14.5); WBC 10.6 thou/uL (4.0-11.0)
[2019-07-11 05:08] LABS: PREALBUMIN 14.7 mg/dL (18.0-35.7)
[2019-07-11 05:26] LABS: CALCIUM 8.3 mg/dL (8.5-10.1); CREATININE 1.6 mg/dL (0.6-1.3)
[2019-07-11 07:00] VITALS: BP 119/59
--- NOTE | 2019-07-11 09:54 | NUR ---
Spoke with , anticipate dc to home tomorrow. Ex ox and PT eval to be completed. Pt has [employer] Medicare replacement plan for insurance coverage. Following.
--- NOTE | 2019-07-11 10:10 | NUR ---
INITAL ASSESSMENT COMPLETED CHARTED. VSS. TRACING SR WITH PVC'S ON MONITOR. PT DENIES PAIN. REFER TO COMPUTER CHARTING FOR FURTHER DETAIL. HOURLY ROUNDING AND FALL PRECAUTIONS IN PLACE FOR PT SAFETY. CLWR.
[2019-07-11 12:29] VITALS: BP 106/48
[2019-07-11 17:28] VITALS: BP 127/71
[2019-07-11 20:00] VITALS: BP 132/61
[2019-07-12] VITALS: BP 150/72
[2019-07-12 04:00] VITALS: BP 128/72
[2019-07-12 04:29] LABS: ABSOLUTE LYMPHOCYTES 0.6 thou/uL (0.8-5.3); ABSOLUTE MONOCYTES 0.4 thou/uL (0.0-1.2); ABSOLUTE NEUTROPHILS 8.7 thou/uL (1.6-8.1); BASOPHILS 0.1 %; HEMATOCRIT 26.7 % (42.0-52.0); HEMOGLOBIN 9.4 gm/dL (14.0-18.0); LYMPHOCYTES 6.2 %; MCH 30.2 pg (26.0-34.0); MCHC 35.2 g/dL (28.0-37.0); MONOCYTES 4.4 %; MPV 8.5 fl. (7.2-11.1); NUCLEATED RBCS 0 /100WBC; PLATELET COUNT* 193 thou/uL (150-400); POLYS 89.3 %; RBC 3.11 mil/uL (4.50-6.00); RDW-CV 15.4 % (10.5-14.5); WBC 9.8 thou/uL (4.0-11.0)
[2019-07-12 04:30] LABS: CALCIUM 8.3 mg/dL (8.5-10.1); CREATININE 1.7 mg/dL (0.6-1.3)
--- NOTE | 2019-07-12 04:44 | NUR ---
ASSUMED PT CARE AT APPROX 1930. PT IS AWAKE ANORIENTED X4. VSS ON 3L OF O2/NC. PT GETS SHORT OF AIR WITH ACTIVITIES. CAMP GUARD IN PLACE TRACING SR ON THE CAMP GUARD. PT WORE THE BIPAP MOST OF THE NIGHT. HIGH FALL PRECAUTIONS IN PLACE. CALL LIGHT WITHIN REACH. HOURLY ROUNDING DONE FOR PT SAFETY.
[2019-07-12 07:00] VITALS: BP 138/75
--- NOTE | 2019-07-12 08:40 | NUR ---
Pt's insurance is out of network [facility] acute rehab, CM to discuss options.
--- NOTE | 2019-07-12 10:05 | NUR ---
INITAL ASSESMENT COMPLETED CHARTED. VSS. TRACING SR ON MONITOR. PT DENIES PAIN, SOA, N/V/D. PT UP TO BSC WITH SBA. NO NEW CONCERNS. HOURLY ROUNDING AND FALL PRECAUTIONS IN PLACE FOR PT SAFETY. CLWR.
[2019-07-12 11:30] VITALS: BP 132/75; BP 139/62
[2019-07-12 16:21] VITALS: BP 138/71
[2019-07-12 20:00] VITALS: BP 129/77
[2019-07-13] VITALS: BP 142/74
[2019-07-13 03:57] VITALS: BP 128/66
--- NOTE | 2019-07-13 05:50 | NUR ---
PT ABLE TO DECREASE OXYGEN LEVEL FROM 3L TO 1L THIS SHIFT. PULMONOLOGY WANTS TITRATED OFF OXYGEN WITH SATS >90%. PT HAD NO C/O PAIN OR DISCOMFORT NOTED. TRANSFERS AND AMBULATES WELL WITH WALKER AND STAND BY ASSIST. PT CURRENTLY ASLEEP IN BED WITH CALL LIGHT WITHIN REACH AND BED ALARM ON.
[2019-07-13 06:30] LABS: HEMATOCRIT 27.6 % (42.0-52.0); HEMOGLOBIN 9.7 gm/dL (14.0-18.0); MCH 30.2 pg (26.0-34.0); MCHC 35.1 g/dL (28.0-37.0); MCV 85.9 fL (80.0-100.0); MPV 8.5 fl. (7.2-11.1); NUCLEATED RBCS 0 /100WBC; PLATELET COUNT* 192 thou/uL (150-400); RBC 3.21 mil/uL (4.50-6.00); RDW-CV 15.7 % (10.5-14.5); WBC 7.6 thou/uL (4.0-11.0)
[2019-07-13 06:39] LABS: CALCIUM 8.5 mg/dL (8.5-10.1); CREATININE 1.5 mg/dL (0.6-1.3); POTASSIUM 3.8 mmol/L (3.5-5.1)
[2019-07-13 07:32] LABS: ABSOLUTE LYMPHOCYTES 1.1 thou/uL (0.8-5.3); ABSOLUTE MONOCYTES 0.2 thou/uL (0.0-1.2); ABSOLUTE NEUTROPHILS 6.2 thou/uL (1.6-8.1); ANISOCYTOSIS 1+; LARGE PLATELETS RARE; MYELOCYTES 1 %; OVALOCYTES 1+; PLATELET ESTIMATE ADEQUATE; POIKILOCYTOSIS 1+
[2019-07-13 08:00] VITALS: BP 144/70
[2019-07-13 12:00] VITALS: BP 125/78
[2019-07-13 16:00] VITALS: BP 128/71
--- NOTE | 2019-07-13 16:27 | 2DMMODE ---
[place] [address] 2 D/M-MODE ECHOCARDIOGRAM Name: CARLOTTA CAMERON Room: [address] IN [facility]#: [id number] Admission: 07/07/19 Attend Phys: John Saab Discharge: Date of : 49 Date of Service: 07/13/19 1627 Report #: [id number] THIS REPORT FOR: //name// APPROVED REPORT Study performed: 07/13/2019 15:28:58 EXAM: Comprehensive 2D, Doppler, and color-flow Echocardiogram Patient Location: In-Patient Room #: [facility] Status: routine BSA: 2.04 HR: 78 bpm BP: 125/78 mmHg Rhythm: NSR Other Information Study Quality: Fair Indications Dyspnea 2D Dimensions IVSd: 13.26 (7-11mm) LVOT Diam: 23.39 (18-24mm) LVDd: 62.74 mm PWd: 11.28 (7-11mm) Ascending Ao: 36.90 (22-36mm) LVDs: 44.36 (25-40mm) Aortic Root: 40.79 mm Volumes Left Atrial Volume (Systole) LA ESV Index: 21.80 mL/m2 Aortic Valve AoV Peak Darron.: 1.85 m/s AO Peak Gr.: 13.62 mmHg LVOT Max P.08 mmHg AO Mean Gr.: 7.18 mmHg LVOT Mean P.19 mmHg LVOT Max V: 1.13 m/s AO V2 VTI: 28.84 cm LVOT Mean V: 0.67 m/s JADE (VTI): 2.99 cm2 LVOT V1 VTI: 20.06 cm AI Henderson: 2.60 m/s2 AI PHT: 339.79 ms Mitral Valve E/A Ratio: 0.66 [place] [address] 2 D/M-MODE ECHOCARDIOGRAM Name: CARLOTTA CAMERON Room: [address] IN ..#: [id number] Admission: 07/07/19 Attend Phys: John Saab Discharge: Date of : 49 Date of Service: 07/13/19 1627 Report #: [id number] MV Decel. Time: 219.63 ms MV E Max Darron.: 0.57 m/s MV PHT: 63.69 ms MVA (PHT): 3.45 cm2 TDI E/Lateral E': 9.50 E/Medial E': 8.14 Medial E' Darron.: 0.07 m/s Lateral E' Darron.: 0.06 m/s Pulmonary Valve PV Peak Darron.: 1.05 m/s PV Peak Gr.: 4.42 mmHg Tricuspid Valve RAP Estimate: 5.00 mmHg TR Peak Gr.: 25.11 mmHg RVSP: 30.00 mmHg PA Pressure: 30.00 mmHg Left Ventricle Left ventricle is mildly dilated. There is normal LV segmental wall motion. Mild concentric left ventricular hypertrophy. Left ventricular systolic function is normal. The left ventricular ejection fraction is within the normal range. LVEF is 55-60%. Grade I - abnormal relaxation pattern. Right Ventricle The right ventricle is normal size. The right ventricular systolic function is normal. Atria The left atrium size is normal. The right atrium size is normal. Aortic Valve Mild aortic valve sclerosis. Mild aortic regurgitation. There is no aortic valvular stenosis. Mitral Valve The mitral valve is normal in structure. Trace mitral regurgitation. No evidence of mitral valve stenosis. Tricuspid Valve The tricuspid valve is normal in structure. Trace tricuspid regurgitation. estimated pa pressure 30 [place] [address] 2 D/M-MODE ECHOCARDIOGRAM Name: CARLOTTA CAMERON Room: [address] IN [facility]#: [id number] Admission: 07/07/19 Attend Phys: John Saab Discharge: Date of : 49 Date of Service: 07/13/19 1627 Report #: [id number] Pulmonic valve is not well visualized. Trace pulmonic regurgitation. Great Vessels The aortic root is normal in size. IVC is normal in size and collapses >50% with inspiration. Pericardium There is no pericardial effusion. <Conclusion> Mild concentric left ventricular hypertrophy. LVEF is 55-60%. Mild aortic valve sclerosis. Mild aortic regurgitation. Trace tricuspid regurgitation. estimated pa pressure 30 mm Hg <ELECTRONICALLY SIGNED> By: Neftaly Esparza MD, FACC 07/13/19 1627 162 162 Neftaly Esparza MD, FACC /INF
[2019-07-13 20:00] VITALS: BP 130/58
[2019-07-14] VITALS: BP 145/79
[2019-07-14 04:00] VITALS: BP 130/61
--- NOTE | 2019-07-14 05:35 | NUR ---
PT MAINTAINING O2 SATS >90% ON RA THROUGH OUT SHIFT. NO C/O PAIN OR DISCOMFORT NOTED. AMBULATING WELL WITH NO SOA NOTED FOR SHORT DISTANCES TO AND FROM BATHROOM. PT IS CURRENTLY ASLEEP IN BED WITH CALL LIGHT WITHIN REACH AND BED ALARM ON.
[2019-07-14 07:00] VITALS: BP 150/75
--- NOTE | 2019-07-14 09:00 | NUR ---
INITAL ASSESSMENT COMPLETED CHARTED. VSS. TRACING SR ON MONITOR. PT UP SBA TO BR, STEADY GAIT. REFER TO COMPUTER CHARTING FOR FURTHER DETAILS. HOURLY ROUNDING AND FALL PRECAUTIONS IN PLACE FOR PT SAFETY. CLWR.
[2019-07-14 10:57] VITALS: BP 141/81
[2019-07-14] MEDS ORDERED: OMEPRAZOLE40 MG PO (11:21)
[2019-07-14] MEDS ORDERED: PREDNISONE 10 M10 MG PO (11:21)
[2019-07-14] MEDS ORDERED: CARVEDILOL3.125 MG PO (11:21)
[2019-07-14] MEDS ORDERED: LEVAQUIN 750 M750 MG PO (11:21)
[2019-07-14] MEDS ORDERED: NEXIUM40 MG PO (11:21)
[2019-07-14] MEDS ORDERED: LASIX 40 MG TAB40 MG PO (11:22)
[2019-07-14] MEDS ORDERED: KLOR-CON 10 ER10 MEQ PO (11:23)
[2019-07-14 11:34] VITALS: BP 141/81
--- NOTE | 2019-07-14 11:36 | NUR ---
Pt discharging to home today, [facility]
[2019-07-14 11:57] VITALS: BP 164/94
== END 2019-07-14 13:30 | disposition home health service (06) | DRG 177 ==
LOC: M.ERS 15:02 → M.TBA-ER 17:34 → M.2W 17:34 → M.ICU 07-09 11:12 → M.2W 07-10 22:18
PROVIDERS: Internal Medicine; Personal Emergency Response Attendant; ADMIT Internal Medicine
PROC: 5A09357 Assistance with Respiratory Ventilation, Less than 24 Consecutive Hours, Continuous Positive Airway Pressure (ICD-10-PCS; principal; 2019-07-11)
DX: J15.6 Pneumonia due to other Gram-negative bacteria (principal); J96.01 Acute respiratory failure with hypoxia; I50.33 Acute on chronic diastolic (congestive) heart failure; N17.0 Acute kidney failure with tubular necrosis; K51.90 Ulcerative colitis, unspecified, without complications; J44.1 Chronic obstructive pulmonary disease with (acute) exacerbation; E87.1 Hypo-osmolality and hyponatremia; G93.40 Encephalopathy, unspecified; E44.0 Moderate protein-calorie malnutrition; I13.0 Hypertensive heart and chronic kidney disease with heart failure and stage 1 through stage 4 chronic kidney disease, or unspecified chronic kidney disease; J44.0 Chronic obstructive pulmonary disease with (acute) lower respiratory infection; E87.6 Hypokalemia; I49.3 Ventricular premature depolarization; I48.0 Paroxysmal atrial fibrillation; J20.9 Acute bronchitis, unspecified; L30.9 Dermatitis, unspecified; I95.9 Hypotension, unspecified; D64.9 Anemia, unspecified; E86.0 Dehydration; B19.20 Unspecified viral hepatitis C without hepatic coma; N18.3 Chronic kidney disease, stage 3 (moderate); Z68.29 Body mass index [BMI] 29.0-29.9, adult; Z86.73 Personal history of transient ischemic attack (TIA), and cerebral infarction without residual deficits; Z87.891 Personal history of nicotine dependence; Z79.01 Long term (current) use of anticoagulants; Z82.49 Family history of ischemic heart disease and other diseases of the circulatory system; Z83.3 Family history of diabetes mellitus

== ENCOUNTER 2019-07-30 09:27 | Emergency (ER) | payer OTHER ==
[~2019-07-30] VITALS: Ht 172.7 cm; Wt 85.3 kg
[~2019-07-30 09:27] MED LIST changes: +ELIQUIS2.5 MG PO; +KLOR-CON 10 ER10 MEQ PO; +LASIX 40 MG TAB40 MG PO; +NEXIUM40 MG PO; +OMEPRAZOLE40 MG PO
[2019-07-30 10:26] LABS: HEMOGLOBIN 9.9 gm/dL (14.0-18.0); MCH 29.7 pg (26.0-34.0); MCHC 34.1 g/dL (28.0-37.0); MCV 87.1 fL (80.0-100.0); MPV 8.3 fl. (7.2-11.1); NUCLEATED RBCS 0 /100WBC; PLATELET COUNT* 227 thou/uL (150-400); RBC 3.33 mil/uL (4.50-6.00); RDW-CV 15.6 % (10.5-14.5); WBC 4.4 thou/uL (4.0-11.0)
[2019-07-30 10:39] LABS: CALCIUM 9.1 mg/dL (8.5-10.1); CREATININE 1.4 mg/dL (0.6-1.3); POTASSIUM 3.8 mmol/L (3.5-5.1)
[2019-07-30 10:45] LABS: ALBUMIN 2.7 g/dL (3.4-5.0); TOTAL BILIRUBIN 0.3 mg/dL (<0.1-1.0); TOTAL PROTEIN 6.4 g/dL (6.4-8.2)
[2019-07-30 11:06] LABS: ABSOLUTE LYMPHOCYTES 1.5 thou/uL (0.8-5.3); ABSOLUTE MONOCYTES 0.5 thou/uL (0.0-1.2); ABSOLUTE NEUTROPHILS 2.2 thou/uL (1.6-8.1); ANISOCYTOSIS 1+; PLATELET ESTIMATE ADEQUATE; POIKILOCYTOSIS 1+
[2019-07-30] MEDS ORDERED: PREDNISONE 20 M20 M1 PO (11:08)
[2019-07-30 11:21] VITALS: BP 145/85
--- NOTE | 2019-07-31 16:46 | EKG ---
[place] [address] ELECTROCARDIOGRAM REPORT Name: CARLOTTA CAMERON [id number] Admission: 07/30/19 Attend Phys: Discharge: 07/30/19 Date of : 49 Report #: [id number] THIS REPORT FOR: //name// [facility] ED Test Date: 2019-07-30 Test Time: 09:58:33 Pat Name: CARLOTTA CAMERON Department: Room: Gender: M Servicenow Administrator: CATRINA : 1945 Requested By: Herrera Burr Order Number: [id number] MD: Kwan Denise Measurements Intervals Lane Rate: 82 P: 176 HI: 163 QRS: 18 QRSD: 150 T: 168 QT: 395 QTc: 462 Interpretive Statements Sinus rhythm Right bundle-branch block Baseline wander in lead(s) V4 Compared to ECG 07/08/2019 23:25:03 T-wave abnormality now present Ventricular premature complex(es) no longer present Electronically Signed On 07-31-2019 16:45:42 CHAIR UPHOLSTERER by Kwan Denise [email or web address] <ELECTRONICALLY SIGNED> By: Kwan Denise MD, [facility] 07/31/19 1645 [id number] Kwan Denise MD, [facility] /EPI
== END 2019-07-30 11:22 | disposition home or self-care (01) ==
LOC: M.ERS 09:27
PROVIDERS: Family Medicine
DX: R06.00 Dyspnea, unspecified (principal); R05 Cough; R06.02 Shortness of breath; I10 Essential (primary) hypertension; I48.91 Unspecified atrial fibrillation; J44.9 Chronic obstructive pulmonary disease, unspecified

== ENCOUNTER 2019-08-06 08:00 | Inpatient (IN) | payer OTHER ==
[~2019-08-06] VITALS: Ht 172.7 cm; Wt 90.3 kg
--- NOTE | ~2019-08-06 | EKG ---
[place] [address] ELECTROCARDIOGRAM REPORT Name: CARLOTTA CAMERON Room: [place] [address] ADM IN [facility]#: [id number] Admission: 08/06/19 Attend Phys: Julián Waggoner Discharge: Date of : 49 Date of Service: 08/06/19820 Report #: [id number] THIS REPORT FOR: cc: Dale Rey MD, Jason MD Epiphany, Epiphany MD ~ THIS REPORT FOR: //name// [facility] ED Test Date: 2019-08-06 Test Time: 08:21:51 Pat Name: CARLOTTA CAMERON Department: Room: [facility] Gender: M Wire Coater: JOSE DE JESUS : 1945 Requested By: Herrera Burr Order Number: [id number] MD: Measurements Intervals [place] Rate: 71 P: -3 TX: 166 QRS: 69 QRSD: 154 T: 15 QT: 432 QTc: 470 Interpretive Statements Sinus rhythm Right bundle branch block Compared to ECG 07/30/2019 09:58:33 No significant changes [email or web address] By: 0 0 Epiphany Epiphany, /EPI
[~2019-08-06 08:00] MED LIST changes: +PREDNISONE 20 M20 M1 PO
[2019-08-06 08:05] VITALS: BP 177/88
[2019-08-06 08:26] LABS: HEMATOCRIT 29.8 % (42.0-52.0); HEMOGLOBIN 10.3 gm/dL (14.0-18.0); MCH 30.3 pg (26.0-34.0); MCHC 34.7 g/dL (28.0-37.0); MCV 87.4 fL (80.0-100.0); MPV 8.4 fl. (7.2-11.1); NUCLEATED RBCS 0 /100WBC; PLATELET COUNT* 289 thou/uL (150-400); RBC 3.41 mil/uL (4.50-6.00); RDW-CV 15.7 % (10.5-14.5); WBC 6.5 thou/uL (4.0-11.0)
[2019-08-06 08:49] LABS: CALCIUM 8.6 mg/dL (8.5-10.1); CREATININE 1.3 mg/dL (0.6-1.3); POTASSIUM 3.8 mmol/L (3.5-5.1)
[2019-08-06 09:01] LABS: ALBUMIN 3.2 g/dL (3.4-5.0); TOTAL BILIRUBIN 0.4 mg/dL (<0.1-1.0); TOTAL PROTEIN 6.7 g/dL (6.4-8.2)
[2019-08-06 09:31] LABS: ABSOLUTE BASOPHILS 0.1 thou/uL (0.0-0.2); ABSOLUTE EOSINOPHILS 0.3 thou/uL (0.0-0.7); ABSOLUTE LYMPHOCYTES 1.8 thou/uL (0.8-5.3); ABSOLUTE MONOCYTES 0.8 thou/uL (0.0-1.2); ABSOLUTE NEUTROPHILS 3.5 thou/uL (1.6-8.1); PLATELET ESTIMATE ADEQUATE
[2019-08-06 14:48] VITALS: BP 126/61
[2019-08-06 15:06] VITALS: BP 126/61
[2019-08-06 16:05] VITALS: BP 130/61; BP 160/61
[2019-08-06] MEDS ORDERED: BENTYL 10 MG CA10 M1 PO (16:26)
[2019-08-06] MEDS ORDERED: ASA81BEC PO (16:26)
[2019-08-06 20:00] VITALS: BP 119/81
[2019-08-07] VITALS: BP 120/53
[2019-08-07 12:12] LABS: ABSOLUTE EOSINOPHILS 0.3 thou/uL (0.0-0.7); ABSOLUTE LYMPHOCYTES 1.2 thou/uL (0.8-5.3); ABSOLUTE MONOCYTES 0.8 thou/uL (0.0-1.2); ABSOLUTE NEUTROPHILS 2.4 thou/uL (1.6-8.1); EOSINOPHILS 6.1 %; HEMATOCRIT 32.1 % (42.0-52.0); HEMOGLOBIN 11.1 gm/dL (14.0-18.0); LYMPHOCYTES 25.9 %; MCH 30.1 pg (26.0-34.0); MCHC 34.7 g/dL (28.0-37.0); MCV 86.8 fL (80.0-100.0); MPV 8.9 fl. (7.2-11.1); NUCLEATED RBCS 0 /100WBC; PLATELET COUNT* 263 thou/uL (150-400); RBC 3.69 mil/uL (4.50-6.00); RDW-CV 15.8 % (10.5-14.5); WBC 4.8 thou/uL (4.0-11.0)
[2019-08-07 12:20] LABS: CALCIUM 8.9 mg/dL (8.5-10.1); CREATININE 1.2 mg/dL (0.6-1.3); POTASSIUM 3.2 mmol/L (3.5-5.1)
[2019-08-07 19:50] VITALS: BP 141/73
[2019-08-07 23:32] VITALS: BP 133/71
[2019-08-08 08:02] VITALS: BP 154/78
[2019-08-08 16:00] VITALS: BP 111/82
[2019-08-08 20:00] VITALS: BP 137/71
[2019-08-09] VITALS: BP 111/74
[2019-08-09 08:10] VITALS: BP 149/70
[2019-08-09 11:00] VITALS: BP 149/70
[2019-08-09 12:14] VITALS: BP 149/70
== END 2019-08-09 12:20 | disposition home or self-care (01) | DRG 602 ==
LOC: M.ERS 08:00 → M.3W 10:44 → M.TBA-ER 10:44 → M.3W 15:11
PROVIDERS: Family Medicine; ADMIT Internal Medicine
DX: L03.115 Cellulitis of right lower limb (principal); I50.33 Acute on chronic diastolic (congestive) heart failure; K51.90 Ulcerative colitis, unspecified, without complications; I11.0 Hypertensive heart disease with heart failure; K21.9 Gastro-esophageal reflux disease without esophagitis; D50.9 Iron deficiency anemia, unspecified; I48.91 Unspecified atrial fibrillation; J44.9 Chronic obstructive pulmonary disease, unspecified; Z86.19 Personal history of other infectious and parasitic diseases; I25.2 Old myocardial infarction; Z82.49 Family history of ischemic heart disease and other diseases of the circulatory system; Z83.3 Family history of diabetes mellitus; Z87.891 Personal history of nicotine dependence; Z79.899 Other long term (current) drug therapy

== ENCOUNTER 2019-09-24 20:14 | Emergency (ER) | payer OTHER ==
[~2019-09-24] VITALS: Ht 172.7 cm; Wt 88.9 kg
[~2019-09-24 20:14] MED LIST changes: +ASA81BEC PO; +BENTYL 10 MG CA10 M1 PO
[2019-09-24] MEDS ORDERED: COREG6.25 MG PO (20:25)
[2019-09-24 21:15] LABS: INFLUENZA A ANTIGEN Negative (Negative); INFLUENZA B ANTIGEN Negative (Negative)
[2019-09-24] MEDS ORDERED: AZITHROMYCIN500 MG PO ×2 (21:47→22:07)
[2019-09-24] MEDS ORDERED: PREDNISONE 10 M10 MG PO ×2 (21:47→22:07)
[2019-09-24 22:11] VITALS: BP 172/92
--- NOTE | 2019-09-26 14:07 | EKG ---
[place] [address] ELECTROCARDIOGRAM REPORT Name: CARLOTTA CAMERON [id number] Admission: 09/24/19 Attend Phys: Discharge: 09/24/19 Date of : 49 Date of Service: 09/24/192021 Report #: [id number] THIS REPORT FOR: //name// [facility] ED Test Date: 2019-09-24 Test Time: 20:22:38 Pat Name: CARLOTTA CAMERON Department: Room: Gender: Auditor Internal: [place] : 1945 Requested By: Aliza Owens Order Number: [id number] Coni MD: Neftaly Esparza Measurements Intervals [place] Rate: 71 P: 42 DE: 159 QRS: 81 QRSD: 153 T: 16 QT: 417 QTc: 454 Interpretive Statements Sinus rhythm Right bundle branch block Compared to ECG 08/06/2019 08:21:51 No significant changes Electronically Signed On 09-26-2019 14:06:00 CDT by Neftaly Esparza [email or web address] <ELECTRONICALLY SIGNED> By: Neftaly Esparza MD, [facility] 09/26/19 140 21 21 Neftaly Esparza MD, FAC /EPI
== END 2019-09-24 22:13 | disposition home or self-care (01) ==
LOC: M.ERS 20:14
PROVIDERS: Physician Assistant
DX: J44.1 Chronic obstructive pulmonary disease with (acute) exacerbation (principal); I11.0 Hypertensive heart disease with heart failure; I50.9 Heart failure, unspecified; I48.91 Unspecified atrial fibrillation

== ENCOUNTER 2019-11-06 16:49 | Emergency (ER) | payer OTHER ==
[~2019-11-06] VITALS: Ht 172.7 cm; Wt 85.7 kg
[~2019-11-06 16:49] MED LIST changes: +AZITHROMYCIN500 MG PO
[2019-11-06] MEDS ORDERED: ZPAK PO (17:42)
[2019-11-06] MEDS ORDERED: VENTOLIN HFA 1818 GM INH (17:42)
[2019-11-06 17:56] VITALS: BP 160/80
== END 2019-11-06 17:57 | disposition home or self-care (01) ==
LOC: M.ERS 16:49
DX: J98.9 Respiratory disorder, unspecified (principal); I11.0 Hypertensive heart disease with heart failure; I50.9 Heart failure, unspecified; I48.91 Unspecified atrial fibrillation; J44.9 Chronic obstructive pulmonary disease, unspecified

== ENCOUNTER 2019-11-11 11:50 | Emergency (ER) | payer OTHER ==
[~2019-11-11] VITALS: Ht 172.7 cm; Wt 87.1 kg
[2019-11-11 12:54] LABS: ABSOLUTE BASOPHILS 0.1 thou/uL (0.0-0.2); ABSOLUTE EOSINOPHILS 0.5 thou/uL (0.0-0.7); ABSOLUTE LYMPHOCYTES 1.4 thou/uL (0.8-5.3); ABSOLUTE MONOCYTES 0.9 thou/uL (0.0-1.2); ABSOLUTE NEUTROPHILS 4.4 thou/uL (1.6-8.1); BASOPHILS 1.5 %; EOSINOPHILS 6.8 %; HEMATOCRIT 37.8 % (42.0-52.0); HEMOGLOBIN 12.7 gm/dL (14.0-18.0); LYMPHOCYTES 19.6 %; MCH 26.3 pg (26.0-34.0); MCHC 33.6 g/dL (28.0-37.0); MCV 78.5 fL (80.0-100.0); MONOCYTES 12.1 %; MPV 9.9 fl. (7.2-11.1); NUCLEATED RBCS 0 /100WBC; PLATELET COUNT* 232 thou/uL (150-400); RBC 4.82 mil/uL (4.50-6.00); RDW-CV 14.7 % (10.5-14.5); WBC 7.3 thou/uL (4.0-11.0)
[2019-11-11 13:06] LABS: APTT 29.1 Seconds (25.0-31.3); PROTIME 10.1 Seconds (9.20-11.50)
[2019-11-11 13:12] LABS: CALCIUM 9.2 mg/dL (8.5-10.1); CREATININE 1.2 mg/dL (0.6-1.3)
[2019-11-11 13:23] LABS: ALBUMIN 3.6 g/dL (3.4-5.0); TOTAL BILIRUBIN 0.3 mg/dL (<0.1-1.0); TOTAL PROTEIN 7.1 g/dL (6.4-8.2)
[2019-11-11] MEDS ORDERED: PREDNISONE 20 M20 MG PO (14:26)
[2019-11-11 15:18] VITALS: BP 174/92
--- NOTE | 2019-11-11 16:19 | EKG ---
[place] [address] ELECTROCARDIOGRAM REPORT Name: CARLOTTA CAMERON [id number] Admission: 11/11/19 Attend Phys: Discharge: 11/11/19 Date of : 49 Date of Service: 11/11/19 1233 Report #: [id number] THIS REPORT FOR: //name// [facility] ED Test Date: 2019-11-11 Test Time: 12:33:00 Pat Name: CARLOTTA CAMERON Department: Room: Gender: Sba Business Development Officer: YOLANDA : 1945 Requested By: Queenie Gifford Order Number: [id number] MD: Neftaly Esparza Measurements Intervals [place] Rate: 67 P: 46 PA: 177 QRS: 78 QRSD: 154 T: 5 QT: 432 QTc: 456 Interpretive Statements Sinus rhythm Right bundle branch block Compared to ECG 09/24/2019 20:22:38 No significant changes Electronically Signed On 11-11-2019 16:17:27 CDT by Neftaly Esparza [email or web address] <ELECTRONICALLY SIGNED> By: Neftaly Esparza MD, [facility] 11/11/19 1617 1233 1233 Neftaly Esparza MD, [facility] /EPI
== END 2019-11-11 15:19 | disposition home or self-care (01) ==
LOC: M.ERS 11:50
PROVIDERS: Nurse Practitioner Family
DX: J98.9 Respiratory disorder, unspecified (principal); I11.0 Hypertensive heart disease with heart failure; I50.9 Heart failure, unspecified; I48.91 Unspecified atrial fibrillation; J44.9 Chronic obstructive pulmonary disease, unspecified; Z20.828 Contact with and (suspected) exposure to other viral communicable diseases

== ENCOUNTER 2020-01-01 19:33 | Emergency (ER) | payer OTHER ==
[~2020-01-01] VITALS: Ht 172.7 cm; Wt 84.8 kg
[2020-01-01] MEDS ORDERED: FLONASE 0.05%50 MCG NARES (21:11)
[2020-01-01 21:25] VITALS: BP 155/93
== END 2020-01-01 21:25 | disposition home or self-care (01) ==
LOC: M.ERS 19:33
DX: H61.23 Impacted cerumen, bilateral (principal); R06.02 Shortness of breath; R51 Headache; J44.9 Chronic obstructive pulmonary disease, unspecified; I11.0 Hypertensive heart disease with heart failure; I48.91 Unspecified atrial fibrillation; I50.9 Heart failure, unspecified; Z79.82 Long term (current) use of aspirin; Z79.899 Other long term (current) drug therapy

== ENCOUNTER 2020-02-06 17:24 | Emergency (ER) | payer OTHER ==
[~2020-02-06] VITALS: Ht 172.7 cm; Wt 84.8 kg
[~2020-02-06 17:24] MED LIST changes: +FLONASE 0.05%50 MCG NARES
[2020-02-06] MEDS ORDERED: MEDROLDOSEPACK PO (19:28)
[2020-02-06] MEDS ORDERED: ZPAK PO (19:28)
[2020-02-06] MEDS ORDERED: VENTOLIN HFA 1818 GM INH (19:28)
[2020-02-06 19:42] VITALS: BP 203/99
== END 2020-02-06 19:49 | disposition home or self-care (01) ==
LOC: M.ERS 17:24
DX: J98.8 Other specified respiratory disorders (principal); I10 Essential (primary) hypertension; I48.91 Unspecified atrial fibrillation; I50.9 Heart failure, unspecified; J44.9 Chronic obstructive pulmonary disease, unspecified; Z20.828 Contact with and (suspected) exposure to other viral communicable diseases; Z87.891 Personal history of nicotine dependence

== ENCOUNTER 2020-06-23 21:13 | Inpatient (IN) | payer OTHER ==
[~2020-06-23] VITALS: Ht 172.7 cm; Wt 79.8 kg
[2020-06-23 21:20] VITALS: BP 144/54
[2020-06-23 22:25] LABS: ABSOLUTE BASOPHILS 0.1 thou/uL (0.0-0.2); ABSOLUTE EOSINOPHILS 0.1 thou/uL (0.0-0.7); ABSOLUTE LYMPHOCYTES 1.4 thou/uL (0.8-5.3); ABSOLUTE MONOCYTES 0.7 thou/uL (0.0-1.2); ABSOLUTE NEUTROPHILS 3.9 thou/uL (1.6-8.1); BASOPHILS 1.3 %; EOSINOPHILS 2.2 %; HEMATOCRIT 34.3 % (42.0-52.0); HEMOGLOBIN 11.5 gm/dL (14.0-18.0); LYMPHOCYTES 22.6 %; MCH 27.4 pg (26.0-34.0); MCHC 33.5 g/dL (28.0-37.0); MONOCYTES 11.7 %; MPV 9.3 fl. (7.2-11.1); NUCLEATED RBCS 0 /100WBC; PLATELET COUNT* 228 thou/uL (150-400); POLYS 62.2 %; RBC 4.18 mil/uL (4.50-6.00); RDW-CV 14.8 % (10.5-14.5); WBC 6.3 thou/uL (4.0-11.0)
[2020-06-23 22:40] LABS: CALCIUM 8.4 mg/dL (8.5-10.1); CREATININE 1.2 mg/dL (0.6-1.3)
[2020-06-23 22:44] LABS: ALBUMIN 3.2 g/dL (3.4-5.0); MAGNESIUM 1.9 mg/dL (1.8-2.4); TOTAL BILIRUBIN 0.3 mg/dL (<0.1-1.0); TOTAL PROTEIN 6.9 g/dL (6.4-8.2)
[2020-06-24 01:15] VITALS: BP 157/72
[2020-06-24 01:20] VITALS: BP 165/84
--- NOTE | 2020-06-24 02:08 | NUR ---
0120 ALERT AND ORIENTED X 4 MALE PATIENT TO ROOM 316 BY CART IN STABLE CONDITION. ADMISSION ROUTINES IN PROGRESS. ORIENTED TO BED CONTROLS, ROOM AND ROUTINES. PLAN OF CARE REVIEWED WITH PATIENT IN AGREEMENT. CONTINUE TO MONITOR.
[2020-06-24] MEDS ORDERED: PROAIR HFA8.5 GM PO (05:19)
--- NOTE | 2020-06-24 05:34 | NUR ---
PATIENT RESTING AT INTERVALS ON HOURLY ROUNDS. MEDICATIONS AND IVF'S PER ORDER. HAS BEEN UP TO BR FOR BM'S X 2 SINCE ADMISSION. PATIENT RECALLED THIS AM HE DIDN'T BRING HIS EYE DROPS FOR RECENT CATARACT SURGERY. PATIENT CONFIRMED HIS PHARMACY. WILL CALL THIS AM TO VERIFY RX AND NOTIFY PHYSICIAN TO ORDER. CONTINUE TO MONITOR.
[2020-06-24 07:20] VITALS: BP 142/70
--- NOTE | 2020-06-24 12:41 | NUR ---
THIS NURSE AGREES WITH MORNING ASSESSMENT BY MAGGIE SUN
--- NOTE | 2020-06-24 15:14 | NUR ---
PT INFORMED OF THE NEED FOR STOOL SAMPLE. HAT PLACED IN TOILET FOR SAMPLE. PT TO CALL WHEN STOOL SAMPLE AVAILABLE TO COLLECT AND SEND FOR CDIFF.
--- NOTE | 2020-06-24 15:43 | NUR ---
STOOL SAMPLE COLLECTED AND TAKEN TO LAB.
[2020-06-24 16:03] VITALS: BP 130/85
--- NOTE | 2020-06-24 18:58 | NUR ---
PT REMAINS ALERT AND ORIENTED. PT STABLE WITHOUT ASSISTANCE. FLUIDS REMAIN INFUSING. CALL LIGHT WITHIN REACH. STOOL SAMPLE SENT FOR CDIFF. ASSESSMENTS CHARTED. PT HAD MULIPLE STOOLS THIS SHIFT. DENIES PAIN. WILL CONTINUE TO MONITOR.
[2020-06-24 20:40] VITALS: BP 114/60
--- NOTE | 2020-06-25 03:29 | NUR ---
PATIENT HAS REMAINED ALERT AND ORIENTED X 4 THROUGHOUT THE SHIFT. HAS BEEN AWAKE ALL NIGHT. REPORTS HE IS FEELING BETTER AND DID EAT A BOX LUNCH WITHOUT NAUSEA OR STOOL URGENCY. IVF'S AND MEDS PER ORDER. ISOLATION: C.DIFF RESULTS PENDING. VITAL SIGNS STABLE. UP INDEPENDENTLY IN THE ROOM. WASHED UP AND SHAVED AT SINK. CONTINUE TO MONITOR.
[2020-06-25 04:26] LABS: HEMATOCRIT 32.2 % (42.0-52.0); HEMOGLOBIN 10.7 gm/dL (14.0-18.0); MCH 26.8 pg (26.0-34.0); MCHC 33.3 g/dL (28.0-37.0); MCV 80.7 fL (80.0-100.0); MPV 8.8 fl. (7.2-11.1); RBC 3.99 mil/uL (4.50-6.00); RDW-CV 14.6 % (10.5-14.5); WBC 3.8 thou/uL (4.0-11.0)
[2020-06-25 05:04] LABS: ALBUMIN 2.9 g/dL (3.4-5.0); CALCIUM 8.3 mg/dL (8.5-10.1); CREATININE 1.1 mg/dL (0.6-1.3); MAGNESIUM 2.1 mg/dL (1.8-2.4); POTASSIUM 3.6 mmol/L (3.5-5.1); TOTAL BILIRUBIN 0.2 mg/dL (<0.1-1.0); TOTAL PROTEIN 6.5 g/dL (6.4-8.2)
[2020-06-25 09:23] VITALS: BP 169/82
--- NOTE | 2020-06-25 09:38 | NUR ---
CM SPOKE TO THE PT TO DISCUSS CM ASSESSMENT. PT A&0, INDEPENDENT WITH ADL'S, ACTIVE AND DRIVES. PT RESIDES AT HOME ALONE. PT USES HOME NEBULIZER FOR RESPIRATORY TREATMENTS. NO OTHER DME. PT HAS 0 HX OF HH OR SNF. CM ASSISTED PT IN COMPLETEING ADVANCED DIRECTIVE. PT GIVEN MULTIPLE COPIES AND INSTRUCTED TO PROVIDE COPY TO AGENT AND PCP. COPY OF ADVANCED DIRECTIVE ALSO PLACED IN PT'S CHART. CM WILL REMAIN AVAILABLE TO ASSIST AND FOLLOW NEEDED.
[2020-06-25 16:19] VITALS: BP 146/68
--- NOTE | 2020-06-25 18:32 | NUR ---
PT A&Ox4. VITALS STABLE. IV PATENT. UP AD PHAM. CDIFF NEGATIVE. DENIED PAIN. TOLERATING MEALS. FORMED STOOLS. CALL LIGHT WITHIN REACH. WILL CONTINUE TO MONITOR.
[2020-06-25 19:45] VITALS: BP 138/64
--- NOTE | 2020-06-26 04:31 | NUR ---
PT A&O X 4, ON RA. MEDS GIVEN ORDERED. NO C/O PAIN OR N/V. UP AD PHAM. WILL CONTINUE TO MONITOR.
[2020-06-26 05:52] LABS: HEMATOCRIT 32.4 % (42.0-52.0); HEMOGLOBIN 10.6 gm/dL (14.0-18.0); MCH 26.7 pg (26.0-34.0); MCHC 32.6 g/dL (28.0-37.0); MCV 81.8 fL (80.0-100.0); MPV 9.3 fl. (7.2-11.1); RBC 3.96 mil/uL (4.50-6.00); RDW-CV 14.7 % (10.5-14.5)
[2020-06-26 05:58] LABS: WBC 14.2 thou/uL (4.0-11.0)
[2020-06-26 06:06] LABS: ALBUMIN 2.9 g/dL (3.4-5.0); CALCIUM 8.6 mg/dL (8.5-10.1); MAGNESIUM 2.1 mg/dL (1.8-2.4); POTASSIUM 3.6 mmol/L (3.5-5.1); TOTAL BILIRUBIN 0.2 mg/dL (<0.1-1.0); TOTAL PROTEIN 6.2 g/dL (6.4-8.2)
[2020-06-26] MEDS ORDERED: PREDNISONE 20 M20 MG PO (10:35)
[2020-06-26] MEDS ORDERED: COREG6.25 MG PO (10:35)
--- NOTE | 2020-06-26 12:30 | CON ---
[address] [address] CONSULTATION Name: CARLOTTA CAMERON Room: [address] IN .R.#: [id number] Admission: 06/25/20 Attend Phys: Mendel Ramos Discharge: Date of : 49 Report #: [id number] THIS REPORT FOR: cc: Ana Hollingsworth MD, Allison Louise MD ~ Mikal Farrar MD DATE OF SERVICE: 06/24/2020 HISTORY OF PRESENT ILLNESS: This is a pleasant 74-year-old male known to our service from his previous admissions. The patient has a history of ulcerative colitis for which he is on medications on and off. The patient presents for evaluation of diarrhea that began 2 weeks back. The patient reports 3-4 poorly formed loose stools every day for the last 2 weeks. The patient denies any blood or any tenesmus. The patient denies any nocturnal diarrhea. His weight has been stable. The patient denies any fevers, chills or other systemic symptoms. The patient reports that it has been more than a year that he has been on any medication for ulcerative colitis and usually gets prednisone tapers while he is hospitalized. Per our clinic records, the patient was in the process of getting approved for Entyvio, but this seems to have fallen through. PAST MEDICAL HISTORY: Ulcerative colitis, history of hepatitis C, which was treated and the patient achieved SVR, hypertension, COPD. PAST SURGICAL HISTORY: None. SOCIAL HISTORY: The patient denies smoking, alcohol or recreational drug use. He quit smoking 17 years back. REVIEW OF SYSTEMS: Comprehensive 10-point review of systems is negative except for what was mentioned in the HPI. PHYSICAL EXAMINATION: VITAL SIGNS: Temperature 36.7, pulse rate 60, respirations 15, blood pressure 132/70, pulse ox 100%. GENERAL: The patient is alert, awake, oriented x 3. HEENT: Pupils are equal, round, reactive to light and accommodation. Mucous membranes are moist. There is no congestion. LUNGS: Clear to auscultation bilaterally. CARDIOVASCULAR: Rate and rhythm regular, S1, S2 present. ABDOMEN: Soft. There is no distention, guarding or rigidity. EXTREMITIES: Warm, well perfused. There is no edema. SKIN: Warm and dry. LABORATORY DATA: Hemoglobin 11.5, hematocrit 34.3, WBC count 6.3, [place] [address] CONSULTATION Name: CARLOTTA CAMERON Room: [address] IN [facility]#: [id number] Admission: 06/25/20 Attend Phys: Mendel Ramos Discharge: Date of : 49 Report #: [id number]. Chemistry: Sodium 135, potassium 4.0, chloride 100, bicarbonate 25, BUN 13, creatinine 1.2, total bilirubin 0.3, AST 21, ALT 21, alkaline phosphatase 73. C. diff toxin pending. IMAGING: Abdomen and pelvis CT findings consistent with moderate colitis extending from the hepatic flexure, down to the distal rectum. No evidence of pericolonic inflammatory mass, abscess or bowel perforation or obstruction. ASSESSMENT AND PLAN: A pleasant 74-year-old male with known history of ulcerative colitis, presenting with what appears to be a flare. I would recommend checking C. diff to make sure it does not have an infection. Depending on his response to steroids and his C. diff testing, where we can consider repeat colonoscopy. But in the ____, he will need to make sure he gets prior authorization for Entyvio. He did try Remicade in the past and failed. Thank you for this consultation. <ELECTRONICALLY SIGNED> By: Mikal Farrar MD 06/26/20 1230 1554 [id number] Farrar MD /nt
[2020-06-26 14:13] VITALS: BP 180/81
[2020-06-26 14:42] VITALS: BP 180/81
--- NOTE | 2020-06-26 14:44 | NUR ---
PATIENT GIVEN DISCHARGE INSTRUCTIONS AND MEDICATIONS REVIEWED. IV REMOVED. PATIENT DENIES PAIN/QUESTIONS/CONCERNS PRIOR TO DISCHARGE. PATIENT ALSO GIVEN WRITTEN PRESCRIPTION FOR PREDNISONE. PATIENT AMBULATED OFF UNIT WITH PERSONAL BELONGINS ACCOMPANIED BY NURSING STAFF; PATIENT LEFT INDEPENDENTLY VIA PERSONAL VEHICLE.
[2020-06-27 07:35] LABS: HEPATITIS B SURFACE AG Negative (Negative)
[2020-06-27] MEDS ORDERED: COREG6.25 MG PO (10:18)
== END 2020-06-26 14:35 | disposition home or self-care (01) | DRG 386 ==
LOC: M.ERS 21:13 → M.TBA-ER 06-24 00:14 → M.3W 06-24 01:19
PROVIDERS: Emergency Medicine; Internal Medicine; Nurse Practitioner Adult Health; ADMIT Internal Medicine; ATTEND Internal Medicine
DX: K51.90 Ulcerative colitis, unspecified, without complications (principal); R65.10 Systemic inflammatory response syndrome (SIRS) of non-infectious origin without acute organ dysfunction; D68.69 Other thrombophilia; I50.32 Chronic diastolic (congestive) heart failure; E86.0 Dehydration; J44.9 Chronic obstructive pulmonary disease, unspecified; I11.0 Hypertensive heart disease with heart failure; I48.91 Unspecified atrial fibrillation; I25.10 Atherosclerotic heart disease of native coronary artery without angina pectoris; Z20.828 Contact with and (suspected) exposure to other viral communicable diseases; Z98.42 Cataract extraction status, left eye; Z98.41 Cataract extraction status, right eye; I25.2 Old myocardial infarction; Z79.899 Other long term (current) drug therapy; Z87.891 Personal history of nicotine dependence

== ENCOUNTER 2020-07-28 18:00 | Inpatient (IN) | payer OTHER ==
[~2020-07-28] VITALS: Ht 172.7 cm; Wt 84.8 kg
[~2020-07-28 18:00] MED LIST changes: +PROAIR HFA8.5 GM PO
[2020-07-28 18:11] VITALS: BP 167/96
[2020-07-28 19:16] LABS: ABSOLUTE BASOPHILS 0.1 thou/uL (0.0-0.2); ABSOLUTE LYMPHOCYTES 1.4 thou/uL (0.8-5.3); ABSOLUTE MONOCYTES 1.6 thou/uL (0.0-1.2); ABSOLUTE NEUTROPHILS 12.9 thou/uL (1.6-8.1); BASOPHILS 0.4 %; EOSINOPHILS 0.3 %; HEMATOCRIT 34.6 % (42.0-52.0); HEMOGLOBIN 11.1 gm/dL (14.0-18.0); LYMPHOCYTES 8.7 %; MCH 25.9 pg (26.0-34.0); MCV 81.2 fL (80.0-100.0); MONOCYTES 9.9 %; MPV 7.6 fl. (7.2-11.1); NUCLEATED RBCS 0 /100WBC; PLATELET COUNT* 213 thou/uL (150-400); POLYS 80.7 %; RBC 4.27 mil/uL (4.50-6.00)
[2020-07-28 19:34] LABS: CALCIUM 8.7 mg/dL (8.5-10.1); CREATININE 1.1 mg/dL (0.6-1.3); POTASSIUM 3.6 mmol/L (3.5-5.1)
[2020-07-28 19:39] LABS: ALBUMIN 3.3 g/dL (3.4-5.0); TOTAL BILIRUBIN 0.5 mg/dL (<0.1-1.0); TOTAL PROTEIN 6.4 g/dL (6.4-8.2)
[2020-07-29 01:15] LABS: HEMATOCRIT 36.5 % (42.0-52.0); HEMOGLOBIN 11.9 gm/dL (14.0-18.0); MCH 26.2 pg (26.0-34.0); MCHC 32.5 g/dL (28.0-37.0); MCV 80.7 fL (80.0-100.0); MPV 8.1 fl. (7.2-11.1); RBC 4.53 mil/uL (4.50-6.00); WBC 16.6 thou/uL (4.0-11.0)
[2020-07-29 01:18] LABS: CALCIUM 9.2 mg/dL (8.5-10.1); POTASSIUM 4.1 mmol/L (3.5-5.1)
[2020-07-29 04:38] VITALS: BP 101/54
[2020-07-29 08:45] VITALS: BP 143/66
[2020-07-29 12:09] VITALS: BP 143/66
[2020-07-29 12:52] VITALS: BP 146/69
[2020-07-29] MEDS ORDERED: IPRAT-ALBUT 0.5-3 ML NEB ×2 (13:14→13:27)
[2020-07-29] MEDS ORDERED: PREDNISONE 20 M20 MG PO (13:27)
[2020-07-29 13:41] VITALS: BP 146/69
--- NOTE | 2020-07-29 14:00 | NUR ---
RECEIVED REPORT FROM ED. PT ARRIVED TO TELE FLOOR AROUND 1220. ASSUMED CARE. ADMISSION EDUCATION, HISTORY AND ASSESSMENT COMPLETED CHARTED. CARDIOLOGY ROUNDED AND SAID PT COULD GO ON HOME AND FOLLOW UP OUTPATIENT. HOSPITALIST GAVE DC ORDERS. DISCHARGE COMPLETED DOCUMENTED. MEDS SENT TO PT'S PHARMACY. IV AND DISTRIBUTION CLERK REMOVED. ALL BELONGINGS GATHERED AND SENT OUT WITH THE PT. PT LEFT WALKING WITH NURSING STAFF. PT LEFT HOSPITAL IN HIS OWN CAR DRIVING HIMSELF.
--- NOTE | 2020-07-30 13:05 | CON ---
[address] [address] CONSULTATION Name: CARLOTTA CAMERON Room: [address] IN M.Suly.#: [id number] Admission: 07/28/20 Attend Phys: Mendel Ramos Discharge: 07/29/20 Date of : 49 Report #: [id number] THIS REPORT FOR: cc: Ana Hollingsworth MD, Allison Louise MD ~ Neftaly Esparza MD [facility] DATE OF SERVICE: 07/29/2020 CARDIOLOGY CONSULTATION HISTORY OF PRESENT ILLNESS: The patient is a 74-year-old white male who I was asked to see in the Emergency Room after he complained of being short of breath. The patient has had several hospitalizations here at [facility] in the past. His last hospitalization was actually in June when he was admitted with ulcerative colitis. He had a history of atrial fibrillation. The patient states that recently he has been short of breath and a cough. He has had edema. He came to the hospital yesterday and was admitted. He denied any chest pain. He has had an irregular heartbeat in the past. No cardioversion. PAST MEDICAL HISTORY: He has had no surgical procedures. He does have a history of hypertension. Previous heart catheterization at [facility] a year ago showed no significant CAD. CURRENT MEDICATIONS: Include only carvedilol. ALLERGIES: He has no known drug allergies. FAMILY HISTORY: His father had a murmur. SOCIAL HISTORY: He is , lives by herself in [place], [place], works as a grocery store clerk. He rarely drinks alcohol. Smokes half pack of cigarettes a day. REVIEW OF SYSTEMS: He apparently had a stroke in the past affecting his right arm. He has a history of COPD; hepatitis C, was treated in the past; chronic kidney disease. No cancer. No psychiatric illness. No chronic skin condition. PHYSICAL EXAMINATION: GENERAL: Revealed an elderly male, lying in bed, appeared in no distress. VITAL SIGNS: He had a blood pressure of 140/60, pulse 60. He is afebrile. HEENT: He is anicteric. Conjunctivae pink. Mucous membranes moist. NECK: Veins nondistended. No carotid bruits. CHEST: Clear to auscultation. CARDIOVASCULAR: [place] [address] CONSULTATION Name: CARLOTTA CAMERON Room: [address]#: [id number] Admission: 07/28/20 Attend Phys: Mendel Ramos Discharge: 07/29/20 Date of : 49 Report #: [id number] ABDOMEN: Soft. EXTREMITIES: Had no edema. Dorsalis pedis pulse could not be palpated. SKIN: Cool and dry. NEUROLOGIC: Nonfocal. RADIOLOGICAL DATA: His ECG showed a sinus rhythm with a right bundle-branch block. His workup, the patient had an echocardiogram done a year ago that showed normal ejection fraction, aortic sclerosis. His workup yesterday, he had a portable chest x-ray that showed cardiomegaly, clear lung herrera. LABORATORY WORK: Sodium 140, creatinine 1.0. Troponin 0.17. BNP 1152. White blood cell count 16.6, hemoglobin 11.9. IMPRESSION AND RECOMMENDATIONS: 1. Shortness of breath, suspect secondary to chronic obstructive pulmonary disease. No evidence of congestive heart failure. 2. Hypertension. The patient is on a beta-galina. 3. Tobacco abuse. 4. Previous stroke. 5. Previous history of hepatitis C that was treated in the past. <ELECTRONICALLY SIGNED> By: Neftaly Esparza MD, FACC 07/30/20 1305 1053 1109Davimendel Esparza MD, FACC /nt
--- NOTE | 2020-07-30 15:03 | EKG ---
[place] [address] ELECTROCARDIOGRAM REPORT Name: CARLOTTA CAMERON Room: [address] IN [facility].#: [id number] Admission: 07/28/20 Attend Phys: Julián Waggoner Discharge: 07/29/20 Date of : 49 Date of Service: 07/28/201912 Report #: [id number] THIS REPORT FOR: //name// [facility] ED Test Date: 2020-07-28 Test Time: 19:13:32 Pat Name: CARLOTTA CAMERON Department: Room: [facility] Gender: M Front Desk Host: [place] : 1945 Requested By: Nikita Higginbotham Order Number: [id number] MD: Kwan Denise Measurements Intervals [place] Rate: 76 P: 47 DC: 175 QRS: 72 QRSD: 156 T: 12 QT: 410 QTc: 462 Interpretive Statements Sinus rhythm Right bundle branch block Compared to ECG 11/11/2019 12:33:00 No significant changes Electronically Signed On 07-30-2020 15:03:20 LANGUAGE TEACHER by Kwan Denise [email or web address] <ELECTRONICALLY SIGNED> By: Kwan Denise MD, FACC 07/30/20 1503 12 12 Kwan Denise MD, [facility] /EPI
== END 2020-07-29 14:15 | disposition home or self-care (01) | DRG 281 ==
LOC: M.ERS 18:00 → M.2W 19:55 → M.TBA-ER 19:55 → M.2W 07-29 12:20
PROVIDERS: Family Medicine; Physician Assistant; ADMIT Internal Medicine; ATTEND Internal Medicine
DX: I21.4 Non-ST elevation (NSTEMI) myocardial infarction (principal); I50.32 Chronic diastolic (congestive) heart failure; J44.9 Chronic obstructive pulmonary disease, unspecified; J30.2 Other seasonal allergic rhinitis; I48.0 Paroxysmal atrial fibrillation; Z20.822 Contact with and (suspected) exposure to COVID-19; I11.0 Hypertensive heart disease with heart failure; I25.10 Atherosclerotic heart disease of native coronary artery without angina pectoris; Z86.19 Personal history of other infectious and parasitic diseases; I25.2 Old myocardial infarction; Z98.49 Cataract extraction status, unspecified eye; Z87.891 Personal history of nicotine dependence; Z86.73 Personal history of transient ischemic attack (TIA), and cerebral infarction without residual deficits

== ENCOUNTER 2020-10-27 06:41 | Emergency (ER) | payer OTHER ==
[~2020-10-27] VITALS: Ht 172.7 cm; Wt 83.9 kg
[~2020-10-27 06:41] MED LIST changes: +IPRAT-ALBUT 0.5-3 ML NEB
[2020-10-27 07:32] LABS: ABSOLUTE BASOPHILS 0.1 thou/uL (0.0-0.2); ABSOLUTE LYMPHOCYTES 1.9 thou/uL (0.8-5.3); ABSOLUTE NEUTROPHILS 5.6 thou/uL (1.6-8.1); BASOPHILS 0.9 %; EOSINOPHILS 0.3 %; HEMATOCRIT 36.6 % (42.0-52.0); HEMOGLOBIN 11.8 gm/dL (14.0-18.0); LYMPHOCYTES 21.7 %; MCH 25.3 pg (26.0-34.0); MCHC 32.2 g/dL (28.0-37.0); MCV 78.4 fL (80.0-100.0); MONOCYTES 12.1 %; MPV 8.7 fl. (7.2-11.1); NUCLEATED RBCS 0 /100WBC; PLATELET COUNT* 228 thou/uL (150-400); RBC 4.66 mil/uL (4.50-6.00); RDW-CV 17.4 % (10.5-14.5); WBC 8.7 thou/uL (4.0-11.0)
[2020-10-27 07:37] LABS: CALCIUM 8.8 mg/dL (8.5-10.1); CREATININE 1.1 mg/dL (0.6-1.3); POTASSIUM 3.9 mmol/L (3.5-5.1)
[2020-10-27 07:42] LABS: ALBUMIN 3.5 g/dL (3.4-5.0); TOTAL BILIRUBIN 0.3 mg/dL (<0.1-1.0); TOTAL PROTEIN 6.7 g/dL (6.4-8.2)
[2020-10-27 08:25] LABS: URINE BILIRUBIN NEGATIVE (Negative); URINE BLOOD NEGATIVE (Negative); URINE CLARITY CLEAR; URINE COLOR YELLOW; URINE GLUCOSE-RANDOM TRACE (Negative); URINE KETONES NEGATIVE (Negative); URINE LEUKOCYTES-REFLEX NEGATIVE (Negative); URINE NITRITE-REFLEX NEGATIVE (Negative); URINE PROTEIN NEGATIVE (Negative); URINE SPECIFIC GRAVITY 1.015 (1.005-1.030); URINE UROBILINOGEN 0.2 E.U./dl (0.2-1.0)
[2020-10-27] MEDS ORDERED: VENTOLIN HFA 1818 GM INH (08:49)
[2020-10-27] MEDS ORDERED: PREDNISONE50 MG PO (08:49)
[2020-10-27] MEDS ORDERED: ALBUTEROL2.5 MG/31 INH (08:49)
[2020-10-27] MEDS ORDERED: TESSALON PERLE100 M1 PO (08:49)
[2020-10-27 08:55] VITALS: BP 179/88
--- NOTE | 2020-10-29 10:51 | EKG ---
[place] [address] ELECTROCARDIOGRAM REPORT Name: CARLOTTA CAMERON [id number] Admission: 10/27/20 Attend Phys: Discharge: 10/27/20 Date of : 49 Date of Service: 10/27/20 0647 Report #: [id number] THIS REPORT FOR: //name// [facility] ED Test Date: 2020-10-27 Test Time: 06:47:18 Pat Name: CARLOTTA CAMERON Department: Room: Gender: Building Maintenance Worker: : 1945 Requested By: Pearl Nava Order Number: [id number] MD: Neftaly Esparza Measurements Intervals [place] Rate: 66 P: 74 IN: 179 QRS: 76 QRSD: 154 T: 8 QT: 426 QTc: 447 Interpretive Statements Sinus rhythm Ventricular premature complex Right bundle branch block Compared to ECG 07/28/2020 19:13:32 Ventricular premature complex(es) now present Electronically Signed On 10-29-2020 10:51:30 CDT by Neftaly Esparza [email or web address] <ELECTRONICALLY SIGNED> By: Neftaly Esparza MD, FAC 10/29/20 1051 0647 0647 Neftaly Esparza MD, [facility] /EPI
== END 2020-10-27 08:57 | disposition home or self-care (01) ==
LOC: M.ERS 06:41
PROVIDERS: Emergency Medicine Emergency Medical Services
DX: J44.1 Chronic obstructive pulmonary disease with (acute) exacerbation (principal); Z20.822 Contact with and (suspected) exposure to COVID-19; I48.91 Unspecified atrial fibrillation; I11.0 Hypertensive heart disease with heart failure; I50.9 Heart failure, unspecified; Z87.891 Personal history of nicotine dependence; Z86.19 Personal history of other infectious and parasitic diseases

== ENCOUNTER 2021-01-22 11:32 | Emergency (ER) | payer OTHER ==
[~2021-01-22] VITALS: Ht 172.7 cm; Wt 85.3 kg
[~2021-01-22 11:32] MED LIST changes: +ALBUTEROL2.5 MG/31 INH; +TESSALON PERLE100 M1 PO
[2021-01-22 12:37] LABS: ABSOLUTE EOSINOPHILS 0.2 thou/uL (0.0-0.7); ABSOLUTE LYMPHOCYTES 1.8 thou/uL (0.8-5.3); ABSOLUTE MONOCYTES 1.1 thou/uL (0.0-1.2); ABSOLUTE NEUTROPHILS 3.2 thou/uL (1.6-8.1); BASOPHILS 0.7 %; EOSINOPHILS 3.3 %; HEMATOCRIT 37.8 % (42.0-52.0); HEMOGLOBIN 12.7 gm/dL (14.0-18.0); MCHC 33.7 g/dL (28.0-37.0); MCV 80.2 fL (80.0-100.0); MONOCYTES 16.8 %; MPV 8.9 fl. (7.2-11.1); NUCLEATED RBCS 0 /100WBC; PLATELET COUNT* 224 thou/uL (150-400); POLYS 51.2 %; RBC 4.71 mil/uL (4.50-6.00); RDW-CV 15.8 % (10.5-14.5); WBC 6.3 thou/uL (4.0-11.0)
[2021-01-22 12:43] LABS: URINE BILIRUBIN NEGATIVE (Negative); URINE BLOOD NEGATIVE (Negative); URINE CLARITY CLEAR; URINE COLOR YELLOW; URINE GLUCOSE-RANDOM NEGATIVE (Negative); URINE KETONES NEGATIVE (Negative); URINE LEUKOCYTES-REFLEX NEGATIVE (Negative); URINE NITRITE-REFLEX NEGATIVE (Negative); URINE PROTEIN NEGATIVE (Negative); URINE UROBILINOGEN 0.2 E.U./dl (0.2-1.0)
[2021-01-22 12:49] LABS: CREATININE 1.2 mg/dL (0.6-1.3); POTASSIUM 3.6 mmol/L (3.5-5.1)
[2021-01-22 12:56] LABS: ALBUMIN 3.4 g/dL (3.4-5.0); TOTAL BILIRUBIN 0.4 mg/dL (<0.1-1.0); TOTAL PROTEIN 7.1 g/dL (6.4-8.2)
[2021-01-22] MEDS ORDERED: ZOFRAN ODT4 MG PO (14:07)
[2021-01-22] MEDS ORDERED: BENTYL 10 MG CA10 M1 PO (14:07)
[2021-01-22] MEDS ORDERED: PREDNISONE 10 M10 MG PO (14:07)
[2021-01-22 14:22] VITALS: BP 149/73
--- NOTE | 2021-01-22 15:41 | EKG ---
[place] [address] ELECTROCARDIOGRAM REPORT Name: CARLOTTA CAMERON Room: [facility]#: [id number] Admission: 01/22/21 Attend Phys: Discharge: 01/22/21 Date of : 49 Date of Service: 01/22/21 1230 Report #: [id number] THIS REPORT FOR: //name// [facility] ED Test Date: 2021-01-22 Test Time: 12:30:29 Pat Name: CARLOTTA CAMERON Department: Room: Gender: Iuss Analyst: : 1945 Requested By: Queenie Gifford Order Number: [id number] MD: Kwan Denise Measurements Intervals [place] Rate: 68 P: -2 [place]: 198 QRS: 61 QRSD: 162 T: -16 QT: 458 QTc: 488 Interpretive Statements Sinus rhythm Right bundle branch block Compared to ECG 10/27/2020 06:47:18 Ventricular premature complex(es) no longer present Electronically Signed On 01-22-2021 15:40:46 CDT by Kwan Denise [email or web address] <ELECTRONICALLY SIGNED> By: Kwan Denise MD, FACC 01/22/21 1540 1230 1230 Kwan Denise MD, [facility] /EPI
== END 2021-01-22 14:23 | disposition home or self-care (01) ==
LOC: M.ERS 11:32
PROVIDERS: Nurse Practitioner Family
DX: K51.90 Ulcerative colitis, unspecified, without complications (principal); Z20.822 Contact with and (suspected) exposure to COVID-19; J44.9 Chronic obstructive pulmonary disease, unspecified; I48.91 Unspecified atrial fibrillation; I11.0 Hypertensive heart disease with heart failure; I50.9 Heart failure, unspecified; Z87.891 Personal history of nicotine dependence; Z91.09 Other allergy status, other than to drugs and biological substances

== ENCOUNTER 2021-02-09 01:23 | Emergency (ER) | payer OTHER ==
[~2021-02-09] VITALS: Ht 172.7 cm; Wt 84.8 kg
[~2021-02-09 01:23] MED LIST changes: +ZOFRAN ODT4 MG PO
[2021-02-09] MEDS ORDERED: NEBULIZER MISCELL ×2 (01:57)
[2021-02-09 02:31] LABS: ABSOLUTE BASOPHILS 0.1 thou/uL (0.0-0.2); ABSOLUTE EOSINOPHILS 0.2 thou/uL (0.0-0.7); ABSOLUTE LYMPHOCYTES 1.1 thou/uL (0.8-5.3); ABSOLUTE MONOCYTES 0.9 thou/uL (0.0-1.2); ABSOLUTE NEUTROPHILS 4.5 thou/uL (1.6-8.1); BASOPHILS 1.2 %; EOSINOPHILS 3.3 %; HEMATOCRIT 38.6 % (42.0-52.0); HEMOGLOBIN 12.6 gm/dL (14.0-18.0); LYMPHOCYTES 16.6 %; MCH 26.1 pg (26.0-34.0); MCHC 32.5 g/dL (28.0-37.0); MCV 80.4 fL (80.0-100.0); MONOCYTES 12.5 %; MPV 8.5 fl. (7.2-11.1); NUCLEATED RBCS 0 /100WBC; PLATELET COUNT* 228 thou/uL (150-400); POLYS 66.4 %; RBC 4.81 mil/uL (4.50-6.00); RDW-CV 15.9 % (10.5-14.5); WBC 6.8 thou/uL (4.0-11.0)
[2021-02-09 02:34] LABS: CALCIUM 8.8 mg/dL (8.5-10.1); CREATININE 1.4 mg/dL (0.6-1.3); POTASSIUM 3.9 mmol/L (3.5-5.1)
[2021-02-09 02:38] LABS: ALBUMIN 3.4 g/dL (3.4-5.0); TOTAL BILIRUBIN 0.3 mg/dL (<0.1-1.0)
[2021-02-09 02:42] LABS: BE -0.3 mmol/L (-2 to +3); PCO2 34.7 mmHg (35.0-45.0); PO2 75.1 mmHg (75.0-100.0); pH 7.444 (7.340-7.450)
[2021-02-09 04:13] LABS: URINE BILIRUBIN NEGATIVE (Negative); URINE BLOOD NEGATIVE (Negative); URINE CLARITY CLEAR; URINE COLOR YELLOW; URINE GLUCOSE-RANDOM NEGATIVE (Negative); URINE KETONES NEGATIVE (Negative); URINE LEUKOCYTES-REFLEX NEGATIVE (Negative); URINE NITRITE-REFLEX NEGATIVE (Negative); URINE PROTEIN NEGATIVE (Negative); URINE SPECIFIC GRAVITY 1.025 (1.005-1.030); URINE UROBILINOGEN 0.2 E.U./dl (0.2-1.0)
[2021-02-09] MEDS ORDERED: MEDROLDOSEPACK PO (05:56)
[2021-02-09] MEDS ORDERED: LEVAQUIN 500 M500 MG PO (06:06)
[2021-02-09 06:20] VITALS: BP 143/76
--- NOTE | 2021-02-09 10:33 | EKG ---
[place] [address] ELECTROCARDIOGRAM REPORT Name: CARLOTTA CAMERON [id number] Admission: 02/09/21 Attend Phys: Discharge: 02/09/21 Date of : 49 Date of Service: 02/09/21 0147 Report #: [id number] THIS REPORT FOR: //name// [facility] ED Test Date: 2021-02-09 Test Time: 01:47:59 Pat Name: CARLOTTA CAMERON Department: Room: Gender: It Risk And Assurance Manager: [place] : 1945 Requested By: Renetta Martinez Order Number: [id number] MD: Neftaly Esparza Measurements Intervals [place] Rate: 87 P: SC: QRS: 79 QRSD: 154 T: 0 QT: 389 QTc: 468 Interpretive Statements Atrial fibrillation Right bundle branch block Compared to ECG 01/22/2021 12:30:29 Sinus rhythm no longer present Electronically Signed On 02-09-2021 10:33:16 CDT by Neftaly Esparza [email or web address] <ELECTRONICALLY SIGNED> By: Neftaly Esparza MD, [facility] 02/09/21 1033 0147 0147 Neftaly Esparza MD, [facility] /EPI
== END 2021-02-09 06:20 | disposition home or self-care (01) ==
LOC: M.ERS 01:23
PROVIDERS: Personal Emergency Response Attendant
DX: J44.1 Chronic obstructive pulmonary disease with (acute) exacerbation (principal); Z20.822 Contact with and (suspected) exposure to COVID-19; I11.0 Hypertensive heart disease with heart failure; I50.9 Heart failure, unspecified; I48.91 Unspecified atrial fibrillation; Z87.891 Personal history of nicotine dependence; Z79.899 Other long term (current) drug therapy

== ENCOUNTER 2021-03-12 12:24 | Emergency (ER) | payer OTHER ==
[~2021-03-12] VITALS: Ht 172.7 cm; Wt 85.7 kg
[~2021-03-12 12:24] MED LIST changes: +LEVAQUIN 500 M500 MG PO; +NEBULIZER MISCELL
[2021-03-12] MEDS ORDERED: FLEXERIL PO (14:07)
[2021-03-12] MEDS ORDERED: NAPROSYN500 MG PO (14:07)
[2021-03-12 14:18] VITALS: BP 142/70
== END 2021-03-12 14:18 | disposition home or self-care (01) ==
LOC: M.ERS 12:24
DX: M25.511 Pain in right shoulder (principal); J44.9 Chronic obstructive pulmonary disease, unspecified; I48.91 Unspecified atrial fibrillation; I25.2 Old myocardial infarction; I11.0 Hypertensive heart disease with heart failure; I50.9 Heart failure, unspecified; Z79.899 Other long term (current) drug therapy; Z87.891 Personal history of nicotine dependence; Z91.048 Other nonmedicinal substance allergy status; X50.1XXA Overexertion from prolonged static or awkward postures, initial encounter; Y93.84 Activity, sleeping; Y92.89 Other specified places as the place of occurrence of the external cause; Y99.8 Other external cause status

== ENCOUNTER 2021-04-08 08:17 | Emergency (ER) | payer OTHER ==
[~2021-04-08] VITALS: Ht 172.7 cm; Wt 85.7 kg
[~2021-04-08 08:17] MED LIST changes: +NAPROSYN500 MG PO
[2021-04-08 08:51] LABS: HEMATOCRIT 34.1 % (42.0-52.0); HEMOGLOBIN 11.3 gm/dL (14.0-18.0); MCH 26.5 pg (26.0-34.0); MCHC 33.1 g/dL (28.0-37.0); MCV 79.9 fL (80.0-100.0); MPV 8.2 fl. (7.2-11.1); RBC 4.27 mil/uL (4.50-6.00); RDW-CV 16.2 % (10.5-14.5); WBC 6.8 thou/uL (4.0-11.0)
[2021-04-08 09:02] LABS: CALCIUM 8.4 mg/dL (8.5-10.1); CREATININE 1.3 mg/dL (0.6-1.3); POTASSIUM 3.8 mmol/L (3.5-5.1)
[2021-04-08 09:06] LABS: ALBUMIN 3.3 g/dL (3.4-5.0); TOTAL BILIRUBIN 0.3 mg/dL (<0.1-1.0); TOTAL PROTEIN 6.7 g/dL (6.4-8.2)
[2021-04-08] MEDS ORDERED: ZOFRAN ODT4 MG DISSOLVE (10:00)
[2021-04-08] MEDS ORDERED: BACTRIM DS TAB1 EAC1 PO (10:00)
[2021-04-08 10:30] VITALS: BP 182/90
== END 2021-04-08 10:30 | disposition home or self-care (01) ==
LOC: M.ERS 08:17
PROVIDERS: Emergency Medicine Emergency Medical Services
DX: L73.9 Follicular disorder, unspecified (principal); Z20.822 Contact with and (suspected) exposure to COVID-19; R19.7 Diarrhea, unspecified; R11.0 Nausea; J02.9 Acute pharyngitis, unspecified; I11.0 Hypertensive heart disease with heart failure; I50.9 Heart failure, unspecified; J44.9 Chronic obstructive pulmonary disease, unspecified; I48.91 Unspecified atrial fibrillation; I25.2 Old myocardial infarction; Z79.899 Other long term (current) drug therapy; Z91.048 Other nonmedicinal substance allergy status; Z87.891 Personal history of nicotine dependence

== ENCOUNTER 2021-04-15 11:08 | Emergency (ER) | payer OTHER ==
[~2021-04-15] VITALS: Ht 172.7 cm; Wt 85.7 kg
[~2021-04-15 11:08] MED LIST changes: +BACTRIM DS TAB1 EAC1 PO; +ZOFRAN ODT4 MG DISSOLVE
[2021-04-15] MEDS ORDERED: MUPIROCIN15 GM TOP (11:37)
[2021-04-15] MEDS ORDERED: HYDROXYZINE HCL25 M2 PO (11:38)
[2021-04-15 11:47] VITALS: BP 135/86
== END 2021-04-15 11:48 | disposition home or self-care (01) ==
LOC: M.ERS 11:08
DX: F41.9 Anxiety disorder, unspecified (principal); L73.9 Follicular disorder, unspecified; I11.0 Hypertensive heart disease with heart failure; I50.9 Heart failure, unspecified; J44.9 Chronic obstructive pulmonary disease, unspecified; I48.91 Unspecified atrial fibrillation; Z79.899 Other long term (current) drug therapy; Z87.891 Personal history of nicotine dependence

== ENCOUNTER 2021-04-22 11:35 | Emergency (ER) | payer OTHER ==
[~2021-04-22] VITALS: Ht 172.7 cm; Wt 86.6 kg
[~2021-04-22 11:35] MED LIST changes: +HYDROXYZINE HCL25 M2 PO; +MUPIROCIN15 GM TOP
[2021-04-22 12:27] LABS: ABSOLUTE BASOPHILS 0.1 thou/uL (0.0-0.2); ABSOLUTE EOSINOPHILS 0.2 thou/uL (0.0-0.7); ABSOLUTE LYMPHOCYTES 1.5 thou/uL (0.8-5.3); ABSOLUTE MONOCYTES 0.9 thou/uL (0.0-1.2); ABSOLUTE NEUTROPHILS 5.1 thou/uL (1.6-8.1); BASOPHILS 0.7 %; HEMATOCRIT 34.9 % (42.0-52.0); HEMOGLOBIN 11.5 gm/dL (14.0-18.0); LYMPHOCYTES 19.1 %; MCH 26.2 pg (26.0-34.0); MCHC 32.9 g/dL (28.0-37.0); MCV 79.6 fL (80.0-100.0); MONOCYTES 11.3 %; MPV 7.9 fl. (7.2-11.1); NUCLEATED RBCS 0 /100WBC; PLATELET COUNT* 324 thou/uL (150-400); POLYS 66.9 %; RBC 4.39 mil/uL (4.50-6.00); RDW-CV 15.4 % (10.5-14.5); WBC 7.7 thou/uL (4.0-11.0)
[2021-04-22 12:30] LABS: URINE BILIRUBIN NEGATIVE (Negative); URINE BLOOD NEGATIVE (Negative); URINE CLARITY CLEAR; URINE COLOR YELLOW; URINE GLUCOSE-RANDOM NEGATIVE (Negative); URINE KETONES NEGATIVE (Negative); URINE LEUKOCYTES-REFLEX NEGATIVE (Negative); URINE NITRITE-REFLEX NEGATIVE (Negative); URINE PROTEIN NEGATIVE (Negative); URINE SPECIFIC GRAVITY 1.015 (1.005-1.030); URINE UROBILINOGEN 0.2 E.U./dl (0.2-1.0)
[2021-04-22 12:34] LABS: CALCIUM 8.8 mg/dL (8.5-10.1); CREATININE 1.6 mg/dL (0.6-1.3); POTASSIUM 4.8 mmol/L (3.5-5.1)
[2021-04-22 12:38] LABS: MAGNESIUM 2.1 mg/dL (1.8-2.4); TOTAL BILIRUBIN 0.3 mg/dL (<0.1-1.0); TOTAL PROTEIN 7.2 g/dL (6.4-8.2)
[2021-04-22] MEDS ORDERED: DICYCLOMINE HCL20 MG PO (14:36)
[2021-04-22] MEDS ORDERED: PREDNISONE 10 M10 MG PO (14:36)
[2021-04-22] MEDS ORDERED: FLAGYL500 M1 PO (14:36)
[2021-04-22] MEDS ORDERED: CIPRO500 M1 PO (14:36)
[2021-04-22 14:57] VITALS: BP 150/74
--- NOTE | 2021-04-22 16:17 | EKG ---
[place] [address] ELECTROCARDIOGRAM REPORT Name: CARLOTTA CAMERON [id number] Admission: 04/22/21 Attend Phys: Discharge: 04/22/21 Date of : 49 Date of Service: 04/22/21 1220 Report #: [id number] THIS REPORT FOR: //name// [facility] ED Test Date: 2021-04-22 Test Time: 12:20:37 Pat Name: CARLOTTA CAMERON Department: Room: Gender: Lehr Stripper: : 1945 Requested By: Queenie Gifford Order Number: [id number] MD: Neftaly Esparza Measurements Intervals [place] Rate: 66 P: 15 [place]: 166 QRS: 64 QRSD: 160 T: 9 QT: 427 QTc: 448 Interpretive Statements Sinus rhythm Right bundle branch block Compared to ECG 02/09/2021 01:47:59 Atrial fibrillation no longer present Electronically Signed On 04-22-2021 16:17:03 CDT by Neftaly Esparza [email or web address] <ELECTRONICALLY SIGNED> By: Neftaly Esparza MD, [facility] 04/22/21 1617 1220 1220 Neftaly Esparza MD, [facility] /EPI
== END 2021-04-22 14:58 | disposition home or self-care (01) ==
LOC: M.ERS 11:35
PROVIDERS: Nurse Practitioner Family
DX: K51.90 Ulcerative colitis, unspecified, without complications (principal); J44.9 Chronic obstructive pulmonary disease, unspecified; I48.91 Unspecified atrial fibrillation; I25.2 Old myocardial infarction; I11.0 Hypertensive heart disease with heart failure; I50.9 Heart failure, unspecified; Z79.2 Long term (current) use of antibiotics; Z79.899 Other long term (current) drug therapy; Z91.048 Other nonmedicinal substance allergy status; Z87.891 Personal history of nicotine dependence

== ENCOUNTER 2021-04-29 13:17 | Inpatient (IN) | payer OTHER ==
[~2021-04-29] VITALS: Ht 172.7 cm; Wt 88.9 kg
--- NOTE | ~2021-04-29 | PROC ---
[address] [address] PROCEDURE REPORT Name: CARLOTTA CAMERON Room: [address] IN M.R.#: [id number] Admission: 04/29/21 Attend Phys: Amna Miller MD Discharge: 05/04/21 Date of : 49 Report #: [id number] THIS REPORT FOR: cc: Dale Rey MD, Jason MD SM,Medical Records Staff ~ For GI report, please see the Provation report in Perceptive 7 content. By: 0648Medical Records Staff JUANA /JOYCE
[~2021-04-29 13:17] MED LIST changes: +CIPRO500 M1 PO; +DICYCLOMINE HCL20 MG PO
[2021-04-29 13:24] VITALS: BP 188/93
[2021-04-29 14:07] LABS: HEMATOCRIT 34.5 % (42.0-52.0); HEMOGLOBIN 11.2 gm/dL (14.0-18.0); MCHC 32.5 g/dL (28.0-37.0); MCV 80.1 fL (80.0-100.0); MPV 8.1 fl. (7.2-11.1); NUCLEATED RBCS 0 /100WBC; PLATELET COUNT* 352 thou/uL (150-400); RBC 4.31 mil/uL (4.50-6.00); RDW-CV 16.4 % (10.5-14.5); WBC 9.6 thou/uL (4.0-11.0)
[2021-04-29 14:10] LABS: CALCIUM 8.6 mg/dL (8.5-10.1); CREATININE 1.2 mg/dL (0.6-1.3); POTASSIUM 3.9 mmol/L (3.5-5.1)
[2021-04-29 14:13] LABS: URINE BILIRUBIN NEGATIVE (Negative); URINE BLOOD NEGATIVE (Negative); URINE CLARITY CLEAR; URINE COLOR YELLOW; URINE GLUCOSE-RANDOM NEGATIVE (Negative); URINE KETONES NEGATIVE (Negative); URINE LEUKOCYTES-REFLEX NEGATIVE (Negative); URINE NITRITE-REFLEX NEGATIVE (Negative); URINE PROTEIN NEGATIVE (Negative); URINE UROBILINOGEN 0.2 E.U./dl (0.2-1.0)
[2021-04-29 14:15] LABS: TOTAL BILIRUBIN 0.3 mg/dL (<0.1-1.0); TOTAL PROTEIN 6.7 g/dL (6.4-8.2)
[2021-04-29 14:57] LABS: ABSOLUTE LYMPHOCYTES 1.2 thou/uL (0.8-5.3); ABSOLUTE MONOCYTES 0.6 thou/uL (0.0-1.2); ABSOLUTE NEUTROPHILS 7.8 thou/uL (1.6-8.1); PLATELET ESTIMATE ADEQUATE
[2021-04-29 19:45] VITALS: BP 146/76
[2021-04-29 20:47] VITALS: BP 146/76
[2021-04-29 21:19] VITALS: BP 155/70
[2021-04-30 08:00] VITALS: BP 143/74
[2021-04-30 08:48] LABS: ABSOLUTE EOSINOPHILS 0.1 thou/uL (0.0-0.7); ABSOLUTE LYMPHOCYTES 1.7 thou/uL (0.8-5.3); ABSOLUTE NEUTROPHILS 6.4 thou/uL (1.6-8.1); BASOPHILS 0.3 %; EOSINOPHILS 1.1 %; MCH 25.7 pg (26.0-34.0); MCHC 32.2 g/dL (28.0-37.0); MCV 79.8 fL (80.0-100.0); MONOCYTES 10.6 %; MPV 7.8 fl. (7.2-11.1); NUCLEATED RBCS 0 /100WBC; PLATELET COUNT* 335 thou/uL (150-400); RBC 4.25 mil/uL (4.50-6.00); RDW-CV 16.4 % (10.5-14.5); WBC 9.2 thou/uL (4.0-11.0)
[2021-04-30 09:05] LABS: ALBUMIN 2.7 g/dL (3.4-5.0); CALCIUM 8.1 mg/dL (8.5-10.1); CREATININE 1.3 mg/dL (0.6-1.3); POTASSIUM 3.8 mmol/L (3.5-5.1); TOTAL BILIRUBIN 0.4 mg/dL (<0.1-1.0); TOTAL PROTEIN 6.2 g/dL (6.4-8.2)
[2021-04-30 10:35] LABS: ESR (SEDRATE) 58 mm/hr (0-20)
--- NOTE | 2021-04-30 15:02 | EKG ---
[place] [address] ELECTROCARDIOGRAM REPORT Name: CARLOTTA CAMERON Room: [address] ADM IN .R.#: [id number] Admission: 04/29/21 Attend Phys: Amna Miller, Discharge: Date of : 49 Date of Service: 04/30/21 1029 Report #: [id number] THIS REPORT FOR: //name// [facility] Test Date: 2021-04-30 Test Time: 10:29:42 Pat Name: CARLOTTA CAMERON Department: Room: [address] Gender: M Application Penetration Tester: [place] : 1945 Requested By: Taisha Villatoro Order Number: [id number] MD: Neftaly Esparza Measurements Intervals [place] Rate: 64 P: 33 FL: 155 QRS: 138 QRSD: 159 T: 4 QT: 459 QTc: 474 Interpretive Statements Sinus rhythm early transition Nonspecific intraventricular conduction delay Compared to ECG 04/22/2021 12:20:37 Right bundle-branch block no longer present Electronically Signed On 04-30-2021 15:02:00 CDT by Neftaly Esparza [email or web address] <ELECTRONICALLY SIGNED> By: Neftaly Esparza MD, FACC 04/30/21 1502 1029 1029 Neftaly Esparaz MD, [facility] /EPI
[2021-04-30 15:35] VITALS: BP 126/75
--- NOTE | 2021-04-30 16:10 | 2DMMODE ---
[place] [address] 2 D/M-MODE ECHOCARDIOGRAM Name: CAROLTTA CAMERON Room: [address] IN [facility]#: [id number] Admission: 04/29/21 Attend Phys: Amna Miller, Discharge: Date of : 49 Date of Service: 04/30/21 1610 Report #: [id number] THIS REPORT FOR: cc: Dale Rey MD, Jason MD Liston, Michael J. MD [facility] ~ APPROVED REPORT Study performed: 04/30/2021 13:41:27 EXAM: Comprehensive 2D, Doppler, and color-flow Echocardiogram Patient Location: In-Patient Room #: [facility] Status: routine BSA: 2.03 HR: 67 bpm BP: 143/74 mmHg Rhythm: NSR Other Information Study Quality: Good Indications Murmur 2D Dimensions IVSd: 13.86 (7-11mm) LVOT Diam: 23.45 (18-24mm) LVDd: 64.65 mm PWd: 12.91 (7-11mm) Ascending Ao: 35.30 (22-36mm) LVDs: 44.83 (25-40mm) Aortic Root: 36.62 mm Volumes Left Atrial Volume (Systole) LA ESV Index: 32.10 mL/m2 Aortic Valve AoV Peak Darron.: 2.15 m/s AO Peak Gr.: 18.51 mmHg LVOT Max P.89 mmHg AO Mean Gr.: 10.20 mmHg LVOT Mean P.79 mmHg LVOT Max V: 1.31 m/s AO V2 VTI: 39.31 cm LVOT Mean V: 0.75 m/s JADE (VTI): 2.53 cm2 LVOT V1 VTI: 23.03 cm AI [place]: 1.80 m/s2 [place] [address] 2 D/M-MODE ECHOCARDIOGRAM Name: CARLOTTA CAMERON Room: [address] IN .R.#: [id number] Admission: 04/29/21 Attend Phys: Amna Miller, Discharge: Date of : 49 Date of Service: 04/30/21 1610 Report #: [id number] AI PHT: 583.99 ms Mitral Valve E/A Ratio: 0.69 MV Decel. Time: 279.71 ms MV E Max Darron.: 0.50 m/s MV PHT: 81.12 ms MVA (PHT): 2.71 cm2 TDI E/Lateral E': 8.33 E/Medial E': 8.33 Medial E' Darron.: 0.06 m/s Lateral E' Darron.: 0.06 m/s Pulmonary Valve PV Peak Darron.: 0.94 m/s PV Peak Gr.: 3.57 mmHg Left Ventricle Left ventricle is mildly dilated. There is normal LV segmental wall motion. Mild concentric left ventricular hypertrophy. Left ventricular systolic function is normal. LVEF is 55-60%. Grade I - abnormal relaxation pattern. Right Ventricle The right ventricle is normal size. The right ventricular systolic function is normal. Atria The left atrium size is normal. The right atrium size is normal. Aortic Valve Mild aortic valve sclerosis. Mild aortic regurgitation. There is no aortic valvular stenosis. Mitral Valve The mitral valve is normal in structure. Trace mitral regurgitation. No evidence of mitral valve stenosis. Tricuspid Valve The tricuspid valve is normal in structure. Unable to assess PA pressure. Trace tricuspid regurgitation. Pulmonic Valve The pulmonary valve is normal in structure. There is no pulmonic [place] [address] 2 D/M-MODE ECHOCARDIOGRAM Name: CARLOTTA CAMERON Room: [address] IN [facility]#: [id number] Admission: 04/29/21 Attend Phys: Amna Miller, Discharge: Date of : 49 Date of Service: 04/30/21 1610 Report #: [id number] Great Vessels The aortic root is normal in size. IVC is normal in size and collapses >50% with inspiration. Pericardium There is no pericardial effusion. <Conclusion> Left ventricle is mildly dilated. Mild concentric left ventricular hypertrophy. Left ventricular systolic function is normal. LVEF is 55-60%. Grade I - abnormal relaxation pattern. Mild aortic valve sclerosis. Mild aortic regurgitation. Trace mitral regurgitation. Trace tricuspid regurgitation. IVC is normal in size and collapses >50% with inspiration. <ELECTRONICALLY SIGNED> By: Kwan Denise MD, FACC 04/30/211609 09 09 Kwan Denise MD, FACC /INF
--- NOTE | 2021-04-30 18:22 | CON ---
[address] [address] CONSULTATION Name: CARLOTTA CAMERON Room: [address] IN .R.#: [id number] Admission: 04/29/21 Attend Phys: Amna Miller MD Discharge: Date of : 49 Report #: [id number] THIS REPORT FOR: cc: Dale Rey MD, Jason MD Vardakis, Gregory DO ~ cc: Dale Rey MD DATE OF CONSULTATION: 04/30/2021 Please note at the time of this dictation, the patient was seen and physically examined by myself. HISTORY OF PRESENT ILLNESS: This is a 75-year-old man who presented to the Emergency Room a week ago having fecal urgency. He was placed on antibiotics, which he has since completed and prednisone 40 mg daily, which he has continued taking. The patient states that after he was sent home, seemed to improve a little bit, but once he got off of the antibiotics, his diarrhea returned prompting him to come in to the Emergency Room. He is still having fecal urgency, not so much at night, but during the day. He has not noticed any bright red blood. He denies any abdominal discomfort with this. No loss of appetite or any upper GI symptoms with this. The patient underwent a colonoscopy back in 01/2019 that showed left-sided ulcerative colitis from the rectum to the splenic flexure with nonthrombosed external hemorrhoids. He did have a history of colon polyps back in 2018 on a previous colonoscopy. EGD in 11/2017 showed a 3 cm hiatal hernia, nonbleeding erosive gastropathy and duodenal erosions, all of which were negative. The patient does not take anything for his acid reflux nor is he currently taking anything for his ulcerative colitis. He has been taking sulfasalazine in the past, but he has not done that for quite some time he said. The patient at one point had been on Humira, which quit working and he was to get approved for Entyvio, which apparently the patient states he could not afford it. He does not ever recall being on Remicade. ALLERGIES: SEASONAL ALLERGIES. MEDICATIONS FROM HOME: Include hydroxyzine for anxiety, dicyclomine p.r.n., carvedilol and ondansetron. PAST MEDICAL HISTORY: Significant for ulcerative colitis, hypertension, COPD. He has had a history of hep C, status post treatment; atrial fib. He has had an AL back in 2019, congestive heart failure and a history of hemorrhoids and atrial fib. PAST SURGICAL HISTORY: [place] [address] CONSULTATION Name: CARLOTTA CAMERON BRENT Room: [address]#: [id number] Admission: 04/29/21 Attend Phys: Amna Miller MD Discharge: Date of : 49 Report #: [id number] FAMILY HISTORY: Noncontributory. SOCIAL HISTORY: He lives by himself. Denies any alcohol. Past use of tobacco and denies any illegal drug use. REVIEW OF SYSTEMS: Twelve-point review of systems is essentially negative except what is mentioned in the HPI. PHYSICAL EXAMINATION: VITAL SIGNS: Temperature 36.5, pulse 59, respirations 18, blood pressure 155/70. HEART: Regular rate and rhythm. LUNGS: Clear. ABDOMEN: Soft, positive bowel sounds in all 4 quadrants with no masses or tenderness noted. LABORATORY DATA: Hemoglobin is 11, white count is 9.2, platelets 335. GFR is 59. His LFTs are completely normal. Lipase is 209. CRP is 18.3. B12 is 391. Ferritin is 24. DIAGNOSTIC DATA: CT scan shows moderate amount of stool seen in the cecum, ascending and proximal transverse. Mild wall thickening of the descending and sigmoid colon, likely indicative of mild colitis. IMPRESSION: 1. Diarrhea. 2. Ulcerative colitis flare. 3. Fecal urgency. 4. Anemia, mild. 5. History of hepatitis C virus post treatment. 6. Chronic obstructive pulmonary disease. 7. Coronary artery disease, history of an myocardial infarction. PLAN: 1. Colonoscopy tomorrow. We will obtain cardiac clearance. 2. Labs still pending. QuantiFERON Gold TB, acute hepatitis panel, ESR, and iron studies. 3. We will look into biologic treatment either Remicade or Entyvio. 4. Further recommendations to be made after [place] [address] CONSULTATION Name: CARLOTTA CAMERON Room: [address] IN ..#: [id number] Admission: 04/29/21 Attend Phys: mAna Miller MD Discharge: Date of : 49 Report #: [id number] Thank you for allowing us to participate in this patient's care. Please do not hesitate to call with any questions in regard to this consult. <ELECTRONICALLY SIGNED> By: Jass Ly DO 04/30/21 1822 0859 0952Jass Ly DO /nt
[2021-05-01 00:22] VITALS: BP 126/75
[2021-05-01 00:35] VITALS: BP 100/57
[2021-05-01 07:27] LABS: ABSOLUTE LYMPHOCYTES 1.4 thou/uL (0.8-5.3); ABSOLUTE NEUTROPHILS 5.9 thou/uL (1.6-8.1); BASOPHILS 0.3 %; EOSINOPHILS 0.5 %; HEMATOCRIT 32.4 % (42.0-52.0); HEMOGLOBIN 10.6 gm/dL (14.0-18.0); LYMPHOCYTES 16.4 %; MCH 26.1 pg (26.0-34.0); MCHC 32.8 g/dL (28.0-37.0); MCV 79.7 fL (80.0-100.0); MONOCYTES 12.3 %; MPV 7.6 fl. (7.2-11.1); NUCLEATED RBCS 0 /100WBC; PLATELET COUNT* 304 thou/uL (150-400); POLYS 70.5 %; RBC 4.06 mil/uL (4.50-6.00); RDW-CV 16.1 % (10.5-14.5); WBC 8.4 thou/uL (4.0-11.0)
[2021-05-01 07:57] LABS: CREATININE 1.2 mg/dL (0.6-1.3); POTASSIUM 3.8 mmol/L (3.5-5.1)
[2021-05-01 08:03] VITALS: BP 111/66
[2021-05-01 10:07] LABS: HEPATITIS B SURFACE AG Negative (Negative)
[2021-05-01 20:00] VITALS: BP 113/60
[2021-05-01 23:57] VITALS: BP 118/61
[2021-05-02 04:25] LABS: ABSOLUTE LYMPHOCYTES 0.6 thou/uL (0.8-5.3); ABSOLUTE MONOCYTES 0.7 thou/uL (0.0-1.2); ABSOLUTE NEUTROPHILS 10.6 thou/uL (1.6-8.1); BASOPHILS 0.1 %; HEMOGLOBIN 10.1 gm/dL (14.0-18.0); LYMPHOCYTES 5.2 %; MCH 25.9 pg (26.0-34.0); MCHC 32.5 g/dL (28.0-37.0); MCV 79.7 fL (80.0-100.0); MONOCYTES 5.8 %; MPV 8.2 fl. (7.2-11.1); NUCLEATED RBCS 0 /100WBC; PLATELET COUNT* 299 thou/uL (150-400); POLYS 88.9 %; RBC 3.89 mil/uL (4.50-6.00); RDW-CV 15.9 % (10.5-14.5); WBC 11.9 thou/uL (4.0-11.0)
[2021-05-02 04:45] LABS: CALCIUM 7.8 mg/dL (8.5-10.1); CREATININE 1.3 mg/dL (0.6-1.3); POTASSIUM 3.9 mmol/L (3.5-5.1)
[2021-05-02 08:00] VITALS: BP 163/73
[2021-05-02 15:36] VITALS: BP 139/63
[2021-05-02 20:30] VITALS: BP 155/64
[2021-05-03 03:51] VITALS: BP 137/59
[2021-05-03] MEDS ORDERED: IRON325 PO (09:39)
[2021-05-03] MEDS ORDERED: FLAGYL500 M1 PO (09:39)
[2021-05-03] MEDS ORDERED: CIPRO500 M1 PO (09:39)
[2021-05-03] MEDS ORDERED: APRISO0.375 GM PO (09:39)
[2021-05-03] MEDS ORDERED: PREDNISONE 10 M10 MG PO (10:22)
--- NOTE | 2021-05-03 14:07 | PATH ---
[facility] [address] [place] [address] PATHOLOGY RPT PROCEDURE Name: JONATHAN CAMERON Room: [address] M.R.#: [id number] Admission: 04/29/21 Date of : 49 Discharge: Report #: [id number] Path Case #: [id number] [facility] Accession Number: [id number] . 01 Material submitted: . PART A: cecum - CECUM BIOPSY PART B: colon - ASCENDING COLON BIOPSY. Modifiers: ascending PART C: colon - TRANSVERSE COLON BIOPSY. Modifiers: transverse PART D: colon - DESCENDING COLON BIOPSY. Modifiers: descending PART E: sigmoid colon - SIGMOID COLON BIOPSY PART F: rectum - RECTUM BIOPSY PART G: rectum - RECTAL POLYPS . 02 Diagnosis: A, D and E - Cecum biopsy, descending colon biopsy, and sigmoid colon biopsy: - Chronic colitis typical of ulcerative colitis with moderate activity, negative for granulomas, viral inclusions and dysplasia. See comment. . B and C - Ascending colon biopsy and transverse colon biopsy: - Chronic colitis typical of ulcerative colitis with severe activity, negative for granulomas, viral inclusions and dysplasia. See comment. . F. Rectum biopsy: - Chronic colitis typical of ulcerative colitis with mild activity, negative for granulomas, viral inclusions and dysplasia. . G. Rectal polyps: - Multiple benign inflammatory pseudopolyps with erosion and severe active inflammation, negative for granulomas, viral inclusions and dysplasia. See comment. (VITOR:celina; 05/03/2021) QMS 05/03/2021 1242 Local . 02 Comment: Review of Loretta Ash's history and physical dated 04/30/2021 reveals this patient to have a history of ulcerative colitis and each of the colonic biopsies show features typical of ulcerative colitis including easily identified chronic inflammation evidenced by prominent crypt distortion and basal lymphoplasmacytosis including many basal lymphoid follicles and with activity as described. (VITOR:celina; 05/03/2021) . 02 Electronically signed: . Sanchez Bowman MD, Pathologist NPI- [id number] . 01 Gross description: [place] [address] PATHOLOGY RPT PROCEDURE Name: JONATHAN CAMERON Room: [address] IN .R.#: [id number] Admission: 04/29/21 Date of : 49 Discharge: Report #: [id number] Path Case #: [id number] A. The specimen is submitted in formalin, labeled "Jett Jonathan, cecum biopsy". Received are 2 segments of pale sexton tissue measuring 0.3 and 0.5 cm in maximum dimensions. The specimen is submitted entirely in cassette A1. . B. The specimen is submitted in formalin, labeled "Jett, Jonathan, ascending colon". The source is additionally listed on the requisition as "ascending colon bx". Received are 2 segments of pale sexton tissue measuring 0.2 and 0.5 cm in maximum dimensions. The specimen is submitted entirely in cassette B1. . C. The specimen is submitted in formalin, labeled "Cameron, Jonathan, transverse colon". The source is additionally listed on the requisition as "transverse colon bx". Received are 2 segments of pale sexton tissue measuring 0.3 and 0.6 cm in maximum dimensions. The specimen is submitted entirely in cassette C1. . D. The specimen is submitted in formalin, labeled "Jett, Jonathan, descending colon". The source is additionally listed on the requisition as "descending colon bx". Received are 3 segments of pale sexton tissue ranging in size from 0.2 to 0.5 cm in maximum dimensions. The specimen is submitted entirely in cassette D1. . E. The specimen is received in formalin, labeled "Jett, Jonathan, sigmoid colon". The source is additionally listed on the requisition as "sigmoid colon bx". Received is a single segment of pale sexton tissue measuring 0.4 cm in maximum dimensions. The specimen is submitted entirely in cassette E1. . F. The specimen is received in formalin, labeled "Jonathan Cameron, rectal biopsy". Received is a single segment of pale sexton tissue measuring 0.5 cm in maximum dimensions. The specimen is submitted entirely in cassette F1. . G. The specimen is submitted in formalin, labeled "Jett, Jonathan, rectal polyps". Received are multiple segments of pale sexton tissue ranging in size from 0.3 to 0.7 cm in maximum dimensions. The specimen is submitted entirely in cassette G1. ([facility]; 05/02/2021) NRI/NRI 05/02/2021 1806 Local . 02 Pathologist provided ICD-10: K52.9, K62.89 . 02 CPT . 119951, 455503, 639508, 968635, 716651, 839093, 248629 Specimen Comment: A courtesy copy of this report has been sent to [phone] Specimen Comment: [phone], Specimen Comment: Report sent to , DR GREEN / DR BARRETT [facility] [address] [place] [address] PATHOLOGY RPT PROCEDURE Name: JONATHAN CAMERON Room: [address] ADM IN M.R.#: [id number] Admission: 04/29/21 Date of : 49 Discharge: Report #: [id number] Path Case #: [id number] Performed at: 01 [facility] Jorge Maguire [address], [place] [id number] MD Aiden Mancilla MD Phone: [phone] Performed at: 02 [facility] [address] [place], [place] [id number] MD Sanchez Bowman MD Phone: [phone]
[2021-05-03 19:45] VITALS: BP 135/57
[2021-05-03 22:06] LABS: HCV QUANT BY PCR HCV Not Detected IU/mL (())
[2021-05-04 08:00] VITALS: BP 183/93
[2021-05-04 10:08] VITALS: BP 183/93
== END 2021-05-04 10:40 | disposition home or self-care (01) | DRG 372 ==
LOC: M.ERS 13:17 → M.3W 16:54 → M.TBA-ER 16:54 → M.3W 21:05
PROVIDERS: Internal Medicine Gastroenterology; Nurse Practitioner Family; ADMIT Internal Medicine; ATTEND Internal Medicine
DX: A04.9 Bacterial intestinal infection, unspecified (principal); K51.90 Ulcerative colitis, unspecified, without complications; E44.0 Moderate protein-calorie malnutrition; K51.00 Ulcerative (chronic) pancolitis without complications; K62.1 Rectal polyp; J44.9 Chronic obstructive pulmonary disease, unspecified; I48.91 Unspecified atrial fibrillation; J30.2 Other seasonal allergic rhinitis; R15.2 Fecal urgency; I25.10 Atherosclerotic heart disease of native coronary artery without angina pectoris; D64.9 Anemia, unspecified; I11.0 Hypertensive heart disease with heart failure; R01.1 Cardiac murmur, unspecified; I50.9 Heart failure, unspecified; I67.1 Cerebral aneurysm, nonruptured; K76.9 Liver disease, unspecified; Z20.822 Contact with and (suspected) exposure to COVID-19; Z23 Encounter for immunization; I25.2 Old myocardial infarction; Z98.49 Cataract extraction status, unspecified eye; Z86.19 Personal history of other infectious and parasitic diseases; Z87.891 Personal history of nicotine dependence; Z82.49 Family history of ischemic heart disease and other diseases of the circulatory system; Z68.29 Body mass index [BMI] 29.0-29.9, adult